=== PATIENT | male | born 1975 | race Caucasian/White ===

== ENCOUNTER 2022-05-19 19:30 | Outpatient (CLI) | payer OTHER, SELFPAY | END 2022-05-19 19:31 | disposition home or self-care (01) | LOC: AMB 05-31 12:51 | PROVIDERS: Visit Provider Family Medicine | DX: F10.129 Alcohol abuse with intoxication, unspecified (principal) | CPT/HCPCS: A0425; A0429 ==

== ENCOUNTER 2022-05-19 20:05 | Emergency (ER) | payer OTHER, SELFPAY ==
[2022-05-19 20:05] VITALS: BP 147/85
[2022-05-19 20:08] VITALS: BP 147/85; PULSE 106; RESP 18; TEMP 36.9; O2SAT 91; BMI 33.0
[2022-05-19 20:30] VITALS: BP 133/79; PULSE 105; O2SAT 91
--- NOTE | 2022-05-19 20:38 | ED_ITS ---
HPI - Alcohol General Chief Complaint: Alcohol/Intoxication Stated Complaint: ETOH Time Seen by Provider: 05/19/22 20:38 Source: patient and RN notes reviewed Mode of arrival: EMS Limitations: altered mental status History of Present Illness HPI narrative: 47-year-old man presenting to the emergency department via EMS who were sent for a welfare check. He presumes they were called by his boss when he says he did not show up for work. Boss is aware that he is an alcoholic. When asked him why he is here he said that he has ?blown it and ?1 year of sobriety. Apparently this year was on April 30 of this year. He says he began drinking 2 days ago. Was not able to clarify exactly why other than he just really wanted to drink. Says it was all ?bullshit?. He says he slipped up here because he was not working the program it is a simple is that he says.? no other answer?. ?Because I am an alcoholic?. He says he is would go to Psychiatry and say ?all do the best I can?. Same applies to his job. Says when he fights he loves life. He has no desire to . He loves art. Clearly loves music prior discussion. This is a lungs is family and friends bottom line is that it is a joke and he does not know why exactly he drank. Does have trouble straightening a coherent thought. Says he keeps getting told is going to make it within some days he feels like is going to ?fuckin' ?. 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 Does not think that the 2 days though that he was drinking again recently up to today would result in much in the way of physical withdrawal symptoms. He does live alone where he was found in his apartment. Works in [employer] at [employer]. 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 Does acknowledge a history of cirrhosis and diabetes. He is not a type 1 diabetic. There was some question of being unwell prior to this or a fever which he does not acknowledge here today. He was afebrile on presentation to the emergency department. Does not describe cough or cold symptoms. There has been no fall or trauma. Is not having any physical pain. He thinks he stopped drinking 24 hours ago however that is not consistent with timeline or the 0.2 alcohol level as tested by EMS. Related Data Home Medications Medication Instructions Recorded Confirmed Unobtainable 05/19/22 05/19/22 Allergies Allergy/AdvReac Type Severity Reaction Status Date / Time No Known Drug Allergies Allergy Verified 05/19/22 20:15 Review of Systems Status of ROS Reports: 10 or more systems reviewed and unremarkable except as noted in History and below [facility] Social History Smoking Status: Former smoker How often do you have a drink containing alcohol: never AUDIT-C Alcohol total score: 0 Non-prescribed substance use: denies use Exam Const: Vital Signs, click to edit/add: Vital Signs - 24 hr 05/19/22 20:08 Temperature 98.4 F Pulse Rate [Left P ulse Oximeter] 106 H Respiratory Rate 18 Blood Pressure [Ri ght Upper Arm] 147/85 H Pulse Oximetry 91 Oxygen Delivery Me thod Room Air General: pleasant, nad, obese breathing easily. CN 2 - 12 intact. Mentation is a little slowed.. Speaking fluidly. Quite pleasantly conversant Skin: warm and dry and well-perfused peripherally. No evidence of new trauma. Normal turgor. Scarring on the inside of the right ankle. 9 in nails tattoo inside lower right leg HEENT: head looks atraumatic. No fluid in the ear canals. No Singer sign. Eyes are non-icteric, PERRLA. EOMi nystagmus is present Oropharynx is moist, not entirely clean dentition at this time Neck and Back: Neck is supple, nontender Cardiac: Tachycardic regular rhythm Lungs/Chest: Breathing easily with equal expansion/excursion, appears to be clear. No pain to palpation. Abdomen/Pelvis: Soft and non-tender with normoactive bowel sounds. Overweight Musculoskeletal/Extremities: Moving all extremities without difficulty. Without pain to palpation. Lower extremity dependent edema not inconsistent with body habitus Documenting provider has reviewed patient's vital signs: yes Course Course Hospital Course: He appears generally well. I am hoping to discharge him to sponsor or friend who can help him clean up his apartment and get back toward sobriety. Does not appear that any intervention otherwise as needed. I did offer formal assisted detox but he does not feel that that will be necessary. Vital Signs Vital signs: Initial Vital Signs Blood Pressure 147/85 H 05/19/22 20:05 Blood Pressure Mean 105 05/19/22 20:05 Blood Pressure Position Supine 05/19/22 20:05 Vital Signs Blood Pressure 147/85 H 05/19/22 20:05 Temperature 98.4 F 05/19/22 20:08 Pulse Rate 112 H 05/19/22 22:00 Respiratory Rate 18 05/19/22 20:08 Blood Pressure 128/60 05/19/22 22:00 Pulse Oximetry 91 05/19/22 22:00 Oxygen Delivery Method 05/19/22 22:00 MDM - Alcohol MDM Narrative Medical decision making narrative: Other than drinking excessively none now certainly alert without suicidal ideation, and can be discharged to care of responsible adult and admonished, encouraged to get back on the wagon. Discharge Plan Discharge Clinical Impression: Alcoholic intoxication Patient Disposition: Home w/ Parent or Adult Condition: Improved Additional Instructions: Enjoy your music music, sober. :) Get back on it. Attend your meetings. You can do it as you have before. Nice to meet you. Prescriptions: No Action Unobtainable Stand Alone Forms: [employer] Info Instructions
[2022-05-19 21:00] VITALS: BP 138/80; PULSE 104; O2SAT 93
--- NOTE | 2022-05-19 21:30 | ED.NURSE ---
Pt gave permission to contact his friend, Swapnil. Pt does not have his phone with him. Pt gave permission to contact PD to retrieve phone/info. Contacted [place] [employer], officer provided phone number for pt's friend Swapnil. Contacted Swapnil Kraft arranged for another friend of pt to come pick the pt up.
[2022-05-19 22:00] VITALS: BP 128/60; PULSE 112; O2SAT 91
--- NOTE | 2022-05-19 22:08 | ED.NURSE ---
Pt leaves ER ambulatory, discharged to friend Scot.
== END 2022-05-19 22:19 | disposition home or self-care (01) ==
LOC: ED 22:13
PROVIDERS: Emergency Provider Family Medicine
DX: F10.220 Alcohol dependence with intoxication, uncomplicated (principal)
CPT/HCPCS: 99282; 99283

== ENCOUNTER 2022-06-22 14:32 | Emergency (ER) | payer OTHER, SELFPAY ==
[2022-06-22 14:51] VITALS: BP 151/80; PULSE 108; RESP 20; TEMP 37.4; O2SAT 96; BMI 41.6
--- NOTE | 2022-06-22 16:49 | ED.GENADULT ---
HPI - General Adult General Date Seen: 06/22/22 Chief complaint: Diabetic Related Problem Stated complaint: Diabetic Related Problem Time Seen by Provider: 06/22/22 16:16 Source: patient History of Present Illness HPI narrative: Patient is a 47-year-old male with underlying type 2 diabetes. He says that of late he has really tried to take his diabetes seriously, he is on a 15 g of carb a day diet and has been really trying to watch his blood sugars. 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 He says over the weekend he just felt kind of like he was in a brain fog, he was not sleeping well, any started to worry that something might be wrong. He has been checking his blood sugars every 2 hours and noted in the past day or so that they had been running around 200. He became pretty concerned about this and decided he should come in and get checked out. He has not had any focal symptoms, denies any fevers, cough, sore throat, headaches, vomiting, or any other concerns. Does have an appointment with an sport psychologist at the end of June. He does tell me he is a recovering alcoholic, he has cirrhosis which he says is MELD; he acknowledges that he tends to be a little bit obsessive about things. He does have a history of depression and anxiety, but says that he does not tend to have manic thoughts. This weekend though he felt like his thoughts were kind of racing, which is part of why it was hard to sleep. Related Data Home Medications Medication Instructions Recorded Confirmed blood sugar diagnostic (OneTouch 06/22/22 06/22/22 Ultra Test strips) bupropion HCl 300 mg 24 hr tablet, mg PO 06/22/22 extended release cholecalciferol (vitamin D3) 1,250 06/22/22 mcg (50,000 unit) capsule escitalopram oxalate 20 mg tablet mg 06/22/22 glimepiride 2 mg tablet mg 06/22/22 omeprazole 40 mg capsule,delayed mg 06/22/22 release pantoprazole 40 mg tablet,delayed mg PO 06/22/22 release quetiapine 25 mg tablet mg 06/22/22 spironolactone 25 mg tablet mg 06/22/22 vitamin A 10,000 unit capsule 06/22/22 Allergies Allergy/AdvReac Type Severity Reaction Status Date / Time No Known Drug Allergies Allergy Verified 05/19/22 20:15 Review of Systems Status of ROS: Reports: 10 or more systems reviewed and unremarkable except as noted in History and below [facility] Social History Smoking Status: Former smoker How often do you have a drink containing alcohol: never AUDIT-C Alcohol total score: 0 Non-prescribed substance use: denies use Exam Narrative: Exam Narrative: Vital signs as noted above. In general, an alert, well-appearing patient. Head: Normocephalic, atraumatic. Eyes: Pupils are equal reactive. Extraocular movements are full. Conjunctivae are normal. ENT: Mucous membranes are moist. Throat is normal. Neck: Supple without lymphadenopathy. Heart: Regular rate and rhythm. No murmur or rub. Lungs: Clear bilaterally. No increased work of breathing, crackles or wheezes. Abdomen: Soft and nontender. No organomegaly. Extremities: Well perfused. No edema. No calf tenderness. Pulses intact. Neurologic: Patient is alert and oriented to person and place. Speech is fluent. Face is symmetric. Moves all extremities equally. Affect: Normal. Skin: Warm and dry. Well perfused. Const: Vital Signs, click to edit/add: Vital Signs - 24 hr 06/22/22 14:51 Temperature 99.4 F Pulse Rate [Right Pulse Oximeter] 108 H Respiratory Rate 20 Blood Pressure [Ri ght Upper Arm] 151/80 H Pulse Oximetry 96 Oxygen Delivery Me thod Room Air Course Course Hospital Course: I offered to do some basic workup here, labs, chest x-ray, COVID test, but also discussed with him that I think given that he is not having any focal symptoms these are likely to be normal. His blood sugar here is 94. We talked about the fact that checking his blood sugars every 2 hours is excessive, and I think his lack of sleep and stress probably contributed to significant adrenaline this weekend which likely drove his blood sugars higher. Ultimately, he decided that he felt comfortable not doing any kind of workup. If he has any new symptoms that develop, he can certainly come back at any time. Otherwise, I have stressed to him that checking his blood sugar once or twice a day is plenty. Would like him to work on stress and sleep hygiene. Follow up with Endocrine at the end of the month as planned. Vital Signs Vital signs: Initial Vital Signs Temperature 99.4 F 06/22/22 14:51 Temperature Source Temporal Artery Scan 06/22/22 14:51 Pulse Rate 108 H 06/22/22 14:51 Respiratory Rate 20 06/22/22 14:51 Blood Pressure 151/80 H 06/22/22 14:51 Blood Pressure Mean 103 06/22/22 14:51 Blood Pressure Position Sitting 06/22/22 14:51 Pulse Oximetry 96 06/22/22 14:51 Oxygen Delivery Method 06/22/22 14:51 Vital Signs Temperature 99.4 F 06/22/22 14:51 Pulse Rate 108 H 06/22/22 14:51 Respiratory Rate 20 06/22/22 14:51 Blood Pressure 151/80 H 06/22/22 14:51 Pulse Oximetry 96 06/22/22 14:51 Oxygen Delivery Method 06/22/22 14:51 Temperature 99.4 F 06/22/22 14:51 Pulse Rate 108 H 06/22/22 14:51 Respiratory Rate 20 06/22/22 14:51 Blood Pressure 151/80 H 06/22/22 14:51 Pulse Oximetry 96 06/22/22 14:51 Oxygen Delivery Method 06/22/22 14:51 Discharge Plan Discharge Clinical Impression: High blood sugar Patient Disposition: Home, Self-Care Condition: Stable Instructions: Diabetic Hyperglycemia (ED) Additional Instructions: Check your blood sugar once or twice a day, not more often that. Continue with your dietary changes as you have been, follow-up with Endocrine later this month as planned. Work on sleep and stress as much as possible. Return to the ER at any time if you feel that you are developing new, concerning symptoms. Prescriptions: No Action quetiapine 25 mg tablet Label Comments: TAKE 1 TABLET BY MOUTH TWICE A DAY (DME) OneTouch Ultra Test Strip MISCELLANEOUS Label Comments: USE DIRECTED BY DOCTOR omeprazole 40 mg capsule,delayed release(DR/EC) Label Comments: TAKE 1 CAPSULE BY MOUTH DAILY spironolactone 25 mg tablet Label Comments: TAKE 1 TABLET BY MOUTH EVERY DAY glimepiride 2 mg tablet Label Comments: TAKE 1 TABLET BY MOUTH ONCE DAILY WITH A MEAL. vitamin A 10,000 unit capsule Label Comments: TAKE 1 CAPSULE BY MOUTH EVERY DAY pantoprazole 40 mg tablet,delayed release (DR/EC) PO Label Comments: TAKE 1 TABLET BY MOUTH EVERY DAY escitalopram oxalate 20 mg tablet Label Comments: TAKE 1 TABLET BY MOUTH EVERY DAY bupropion HCl 300 mg tablet extended release 24 hr PO Label Comments: TAKE 1 TABLET BY MOUTH EVERY DAY cholecalciferol (vitamin D3) 1,250 mcg (50,000 unit) capsule Label Comments: TAKE 1 CAPSULE BY MOUTH ONE DAY A WEEK Follow Up/Referrals: Provider,Not a Local [Primary Care Provider] - Stand Alone Forms: [facility] Info Instructions
== END 2022-06-22 17:05 | disposition home or self-care (01) ==
LOC: ED 16:50
PROVIDERS: Emergency Provider Emergency Medicine
DX: E11.65 Type 2 diabetes mellitus with hyperglycemia (principal)
CPT/HCPCS: 82962; 99283

== ENCOUNTER 2022-08-19 17:39 | Emergency (ER) | payer OTHER, SELFPAY ==
[2022-08-19] VITALS (17 sets, daily range): BP systolic 103–146; BP diastolic 62–81; PULSE 100–120; TEMP 37.1; O2SAT 91–97; BMI 43.0
--- NOTE | 2022-08-19 18:06 | ED.GENADULT ---
HPI - General Adult General Time Seen by Provider: 18:07 Date Seen: 08/19/22 Chief complaint: Edema Stated complaint: Fatigue,Edema,Shortness of Breath Time Seen by Provider: 08/19/22 17:42 Source: patient, RN notes reviewed and old records reviewed Mode of arrival: ambulatory Limitations: no limitations History of Present Illness HPI narrative: Patient is a 47-year-old male with underlying diabetes, cirrhosis due to alcohol, alcoholism in remission coming in with significant increased edema of his lower extremities over the last few days. He is feeling fatigued, short of breath. He states he feels confused, states he is having hard time making sense of what he is trying to say. He has felt his heart has been going faster at times but no chest pain. Denies any abdominal pain. No nausea vomiting or diarrhea, no urinary changes. He denies any current alcohol use. In review of the chart he was in in May with a alcoholic binge episode. That reportedly is his last use. He has been diligently trying to work on his diabetes, falling very stringent lifestyle/dietary recommendations. He notes over the last month maybe he has had some occasional fevers up to 101. There is no specific pain at this time. It is the edema and fatigue, associated shortness of breath that brought him in tonight. He is checking his sugars about twice a day and does not believe that they were out of control. Related Data Home Medications Medication Instructions Recorded Confirmed blood sugar diagnostic (OneTouch 06/22/22 06/22/22 Ultra Test strips) bupropion HCl 300 mg 24 hr tablet, mg PO 06/22/22 extended release cholecalciferol (vitamin D3) 1,250 06/22/22 mcg (50,000 unit) capsule escitalopram oxalate 20 mg tablet mg 06/22/22 glimepiride 2 mg tablet mg 06/22/22 omeprazole 40 mg capsule,delayed mg 06/22/22 release pantoprazole 40 mg tablet,delayed mg PO 06/22/22 release quetiapine 25 mg tablet mg 06/22/22 spironolactone 25 mg tablet mg 06/22/22 vitamin A 10,000 unit capsule 06/22/22 Previous Rx's Medication Instructions Recorded furosemide 20 mg tablet 20 mg PO DAILY #3 tabs 08/19/22 Allergies Allergy/AdvReac Type Severity Reaction Status Date / Time No Known Drug Allergies Allergy Verified 05/19/22 20:15 Review of Systems Status of ROS: Reports: 10 or more systems reviewed and unremarkable except as noted in History and below PFSH [facility] Social History Smoking Status: Former smoker How often do you have a drink containing alcohol: never AUDIT-C Alcohol total score: 0 Non-prescribed substance use: denies use service: No Exam Const: Vital Signs, click to edit/add: Vital Signs - 24 hr 08/19/22 18:03 08/19/22 18:16 08/19/22 18:08 Temperature 98.8 F Pulse Rate 115 H Pulse Rate [Right Pulse Oximeter] 120 H Blood Pressure Blood Pressure [Ri ght Upper Arm] 103/81 Pulse Oximetry 96 95 96 Oxygen Delivery Me thod Room Air 08/19/22 18:30 08/19/22 18:32 08/19/22 18:33 Temperature Pulse Rate 109 H 109 H 108 H Pulse Rate [Right Pulse Oximeter] Blood Pressure 126/67 Blood Pressure [Ri ght Upper Arm] Pulse Oximetry 94 93 93 Oxygen Delivery Me thod 08/19/22 19:00 08/19/22 19:02 08/19/22 19:03 Temperature Pulse Rate 105 H 106 H 105 H Pulse Rate [Right Pulse Oximeter] Blood Pressure 128/62 Blood Pressure [Ri ght Upper Arm] Pulse Oximetry 91 92 92 Oxygen Delivery Me thod 08/19/22 19:30 08/19/22 19:32 08/19/22 19:33 Temperature Pulse Rate 101 H 101 H 108 H Pulse Rate [Right Pulse Oximeter] Blood Pressure 130/67 Blood Pressure [Ri ght Upper Arm] Pulse Oximetry 93 92 94 Oxygen Delivery Me thod 08/19/22 20:00 08/19/22 20:01 08/19/22 20:30 Temperature Pulse Rate 101 H 100 106 H Pulse Rate [Right Pulse Oximeter] Blood Pressure 107/64 Blood Pressure [Ri ght Upper Arm] Pulse Oximetry 92 93 96 Oxygen Delivery Me thod 08/19/22 20:32 Temperature Pulse Rate 109 H Pulse Rate [Right Pulse Oximeter] Blood Pressure 146/70 H Blood Pressure [Ri ght Upper Arm] Pulse Oximetry 97 Oxygen Delivery Me thod Documenting provider has reviewed patient's vital signs: yes Common normals: no apparent distress, oriented x3, no limitations, alert and well nourished General appearance: cooperative and comfortable Nutritional appearance: obese HENMT: Common normals: normocephalic (Wears a right eye patch), head/scalp atraumatic, hearing grossly normal bilaterally, external ears normal, external nose normal, nasal mucous membranes and turbinates normal, moist oral mucous membranes, oropharynx normal, dentition normal and gingiva normal Head and scalp: normocephalic (Wears a right eye patch) and atraumatic Nose: external nose normal and nasal mucous membranes and turbinates normal External ear: external ears normal Eye: Other: Right IA is with an eye patch. Pupil is round and reactive on the left I do think there might be some scleral icterus that I am seen. Neck & C-Spine: Common normals: full ROM, no lymphadenopathy, supple, no meningeal signs, no JVD and thyroid normal Thyroid: thyroid normal Chest: Common normals: inspection of chest normal and palpation of chest normal Resp: Common normals: normal respiratory effort, no retractions and no use of accessory muscles Other: Diminished lung sounds right base, some dry fibrotic crackles heard, no wheezing, no prolonged expiratory phase. Cardio: Common normals: no JVD, regular rhythm, S1 normal heart sound, S2 normal heart sound, no gallops, no clicks and no murmurs Rate: tachycardic Rhythm: regular rhythm Heart sounds: S1 normal and S2 normal GI: Common normals: Normal to inspection, nondistended, normoactive bowel sounds present, soft to palpation, non-tender, no hepatosplenomegaly and no masses Palpation: soft and no hepatosplenomegaly Extremity: Other: He has significantly thickened lower extremities with some overlying pitting edema. He has significant erythema and petechial/bruising changes of his lower ext remedies likely due to capillary breakdown from edema. I do not have a sense that the legs are infected with cellulitis. Neuro: Common normals: oriented x3, CN's II-XII intact bilaterally, moves all extremities, no focal motor deficits and no sensory deficits noted Sensorium/orientation: alert Meningeal signs: no meningeal signs Speech: speech normal Course Course Hospital Course: Patient is reporting tachycardia, shortness of breath, fatigue and edema. He reports he has not been drinking except for that 1 incident in May. I still do think that decompensation of his cirrhosis is a possibility, complications of diabetes with cardiac issues is certainly a possibility. This does not sound like it is infectious in nature but need to keep that in mind. Will start with a full complement of labs, EKG, portable chest x-ray. Reevaluation(s) Reevaluation #1: Patient was sleeping comfortably when I went in to talk to him. Reviewed that his liver labs are giving him a meld score of 21. He states that is mid range for him in higher than what he has most recently been. His ammonia is currently normal. He reflects that when he saw Dr. Miller recently, they had talked about maybe initiating Lasix for lower extremity edema. He states his legs were not as bad as they are now, that is really taken off over the last few days. I recommend re-initiate 20 mg of Lasix daily for 3 days and follow up in clinic on Tuesday. He states he is worried about going home. I have reviewed with him that I do not believe he meets criteria for hospitalization but certainly will ask the hospitalist who is much more informed than I am on this. Did speak with our hospitalist and he concurred that there was no reason for hospitalization for this patient at this time. Did review that with the patient. Patient expresses difficulty getting stockings on his legs. Reviewed that Otis wraps really are not the best for compression, should talk to his primary care provider about the wraps for edema. Time: 20:31 Vital Signs Vital signs: Initial Vital Signs Temperature 98.8 F 08/19/22 18:03 Temperature Source Temporal Artery Scan 08/19/22 18:03 Pulse Rate 120 H 08/19/22 18:03 Blood Pressure 103/81 08/19/22 18:03 Blood Pressure Mean 88 08/19/22 18:03 Blood Pressure Position Sitting 08/19/22 18:03 Pulse Oximetry 96 08/19/22 18:03 Oxygen Delivery Method 08/19/22 18:03 Vital Signs Temperature 98.8 F 08/19/22 18:03 Pulse Rate 120 H 08/19/22 18:03 Blood Pressure 103/81 08/19/22 18:03 Pulse Oximetry 96 08/19/22 18:03 Oxygen Delivery Method 08/19/22 18:03 Temperature 98.8 F 08/19/22 18:03 Pulse Rate 109 H 08/19/22 20:32 Blood Pressure 146/70 H 08/19/22 20:32 Pulse Oximetry 97 08/19/22 20:32 Oxygen Delivery Method 08/19/22 18:03 Medical Decision Making Lab Data Lab results reviewed: Yes I reviewed the patient's lab results Labs: Lab Results 08/19/22 08/19/22 08/19/22 Range/Units 18:08 18:17 18:17 WBC (4.50-11.00) K/uL RBC (4.30-5.90) m/uL Hgb (13.5-17.5) gm/dL Hct (37.0-53.0) % MCV (80-100) fL MCH (26-34) pg MCHC (32-36) gm/dL RDW Coeff of Caridad (11.5-15.5) % Plt Count (140-440) K/uL Neut % (Auto) (42.0-72.0) % Lymph % (Auto) (20-44) % [place] % (Auto) (0.0-11.0) % Eos % (Auto) (0.0-7.0) % Baso % (Auto) (0.0-3.0) % Neut # (Auto) (1.7-7.0) K/uL Lymph # (Auto) (0.90-2.90) K/uL [place] # (Auto) (0.00-0.90) K/UL Eos # (Auto) (0.00-0.50) K/uL Baso # (Auto) (0.00-0.30) K/uL Abs Immat Gran (auto) (0.00-0.30) K/uL Imm/Tot Granulo (auto) % INR (0.91-1.10) APTT (23-33) Seconds VBG pH 7.464 H (7.32-7.43) VBG pCO2 39 L (40-50) mmHG VBG pO2 49.7 H (25-47) mmHG VBG HCO3 28 (21-28) mmol/L Sodium (135-149) mmol/L Potassium (3.6-5.1) mmol/L Chloride (96-114) mmol/L Carbon Dioxide (20-32) mmol/L BUN (5-24) mg/dL Creatinine (0.5-1.5) mg/dL Estimated Creat Clear Estimated GFR ml/min Glucose (60-115) mg/dL Calcium (8.4-10.6) mg/dL Magnesium (1.5-2.6) mg/dL Total Bilirubin (0.1-1.5) mg/dL AST (12-35) U/L ALT (4-50) U/L Alkaline Phosphatase (40-150) U/L Ammonia (13.1-30.0) umol/L C-Reactive Protein NT-Pro-B Natriuret Pep (0-125) PG/mL Total Protein (6.0-8.3) g/dL Albumin (3.3-5.0) g/dL TSH (0.270-4.200) uIU/mL Ethyl Alcohol (0.01-0.03) % SARS-CoV-2 (PCR) Negative SARS-CoV-2 (Negative) Influenza Type A (PCR) Negative PCR FLU A (Negative) Influenza Type B (PCR) Negative PCR FLU B (Negative) RSV (PCR) Negative PCR RSV (Negative) POC Troponin I 0.00 L (0.01-0.04) ng/ml 08/19/22 08/19/22 08/19/22 Range/Units 18:27 18:27 18:27 WBC 4.05 L (4.50-11.00) K/uL RBC 3.97 L (4.30-5.90) m/uL Hgb 11.1 L (13.5-17.5) gm/dL Hct 34.3 L (37.0-53.0) % MCV 86 (80-100) fL MCH 28 (26-34) pg MCHC 32 (32-36) gm/dL RDW Coeff of Caridad 16.1 H (11.5-15.5) % Plt Count 101 L (140-440) K/uL Neut % (Auto) 73.2 H (42.0-72.0) % Lymph % (Auto) 15.3 L (20-44) % [place] % (Auto) 9.9 (0.0-11.0) % Eos % (Auto) 0.7 (0.0-7.0) % Baso % (Auto) 0.7 (0.0-3.0) % Neut # (Auto) 3.00 (1.7-7.0) K/uL Lymph # (Auto) 0.60 L (0.90-2.90) K/uL [place] # (Auto) 0.40 (0.00-0.90) K/UL Eos # (Auto) 0.00 (0.00-0.50) K/uL Baso # (Auto) 0.00 (0.00-0.30) K/uL Abs Immat Gran (auto) 0.00 (0.00-0.30) K/uL Imm/Tot Granulo (auto) 0.2 % INR 1.48 H (0.91-1.10) APTT 36 H (23-33) Seconds VBG pH (7.32-7.43) VBG pCO2 (40-50) mmHG VBG pO2 (25-47) mmHG VBG HCO3 (21-28) mmol/L Sodium (135-149) mmol/L Potassium (3.6-5.1) mmol/L Chloride (96-114) mmol/L Carbon Dioxide (20-32) mmol/L BUN (5-24) mg/dL Creatinine (0.5-1.5) mg/dL Estimated Creat Clear Estimated GFR ml/min Glucose (60-115) mg/dL Calcium (8.4-10.6) mg/dL Magnesium (1.5-2.6) mg/dL Total Bilirubin (0.1-1.5) mg/dL AST (12-35) U/L ALT (4-50) U/L Alkaline Phosphatase (40-150) U/L Ammonia (13.1-30.0) umol/L C-Reactive Protein Cancelled NT-Pro-B Natriuret Pep (0-125) PG/mL Total Protein (6.0-8.3) g/dL Albumin (3.3-5.0) g/dL TSH (0.270-4.200) uIU/mL Ethyl Alcohol (0.01-0.03) % SARS-CoV-2 (PCR) (Negative) Influenza Type A (PCR) (Negative) Influenza Type B (PCR) (Negative) RSV (PCR) (Negative) POC Troponin I (0.01-0.04) ng/ml 08/19/22 08/19/22 08/19/22 Range/Units 18:27 18:27 18:27 WBC (4.50-11.00) K/uL RBC (4.30-5.90) m/uL Hgb (13.5-17.5) gm/dL Hct (37.0-53.0) % MCV (80-100) fL MCH (26-34) pg MCHC (32-36) gm/dL RDW Coeff of Caridad (11.5-15.5) % Plt Count (140-440) K/uL Neut % (Auto) (42.0-72.0) % Lymph % (Auto) (20-44) % [place] % (Auto) (0.0-11.0) % Eos % (Auto) (0.0-7.0) % Baso % (Auto) (0.0-3.0) % Neut # (Auto) (1.7-7.0) K/uL Lymph # (Auto) (0.90-2.90) K/uL [place] # (Auto) (0.00-0.90) K/UL Eos # (Auto) (0.00-0.50) K/uL Baso # (Auto) (0.00-0.30) K/uL Abs Immat Gran (auto) (0.00-0.30) K/uL Imm/Tot Granulo (auto) % INR (0.91-1.10) APTT (23-33) Seconds VBG pH (7.32-7.43) VBG pCO2 (40-50) mmHG VBG pO2 (25-47) mmHG VBG HCO3 (21-28) mmol/L Sodium 131 L (135-149) mmol/L Potassium 3.8 (3.6-5.1) mmol/L Chloride 98 (96-114) mmol/L Carbon Dioxide 25 (20-32) mmol/L BUN 8 (5-24) mg/dL Creatinine 0.6 (0.5-1.5) mg/dL Estimated Creat Clear 153.77 Estimated GFR 118 ml/min Glucose 148 H (60-115) mg/dL Calcium 8.2 L (8.4-10.6) mg/dL Magnesium 1.6 (1.5-2.6) mg/dL Total Bilirubin 3.8 H (0.1-1.5) mg/dL AST 36 H (12-35) U/L ALT 21 (4-50) U/L Alkaline Phosphatase 183 H (40-150) U/L Ammonia 20.0 (13.1-30.0) umol/L C-Reactive Protein 0.9 NT-Pro-B Natriuret Pep 112 (0-125) PG/mL Total Protein 6.3 (6.0-8.3) g/dL Albumin 3.4 (3.3-5.0) g/dL TSH 1.760 (0.270-4.200) uIU/mL Ethyl Alcohol < 0.01 L (0.01-0.03) % SARS-CoV-2 (PCR) (Negative) Influenza Type A (PCR) (Negative) Influenza Type B (PCR) (Negative) RSV (PCR) (Negative) POC Troponin I (0.01-0.04) ng/ml Imaging Data Chest x-ray: Attestation: I have reviewed the pertinent imaging results. My impression: A my preliminary review, see no acute cardiopulmonary change. Radiologist's impression: Patient: ROBERT OHARA Facility:?[facility] Patient ID:?[id number] Site Patient ID:?[id number]. Site :?[id number] Study:?XRay Chest -08/19/2022 6:44:24 PM Ordering Physician:Venkata Gaming Final Report: INDICATION: Dyspnea and fatigue COMPARISON: None TECHNIQUE: Single-view study FINDINGS: TUBES AND LINES: None. HEART AND MEDIASTINUM: The heart size is normal. The mediastinal contour appears normal for patient age. LUNGS AND PLEURAL SPACES: The lungs appear normal.The pleural spaces are unremarkable. OSSEOUS STRUCTURES: Age-appropriate appearance. No acute focal finding. IMPRESSION: No evidence of active pulmonary disease. Dictated by Josue Gómez MD @ 08/19/2022 7:07:35 PM (Electronic Signature) ECG Data Attestation: I personally reviewed and interpreted this ECG as follows: (Sinus tachycardia, 109 beats per minute, QT corrected 484 milliseconds. No ischemic change.) Prior ECG tracings: not available for review Critical Care Time Critical Care Time Critical Care Time: No Discharge Plan Discharge Clinical Impression: Bilateral edema of lower extremity Patient Disposition: Home, Self-Care Condition: Stable Instructions: Cirrhosis (ED), Leg Edema (ED) Additional Instructions: Need to follow up in clinic Tuesday next week, call tomorrow to get scheduled. Need to call [place] [facility] specialist and get back in with them if need be, we will send your current labs with you. Need to elevate legs to heart level, take Lasix daily for next 3 days and be re-evaluated on Tuesday in clinic. Also need to have the clinic get you scheduled to get appropriate compression for your legs. Activity Level: Activity as Tolerated Prescriptions: New furosemide 20 mg tablet 20 mg PO DAILY Qty: 3 0RF No Action quetiapine 25 mg tablet Label Comments: TAKE 1 TABLET BY MOUTH TWICE A DAY (DME) OneTouch Ultra Test Strip MISCELLANEOUS Label Comments: USE DIRECTED BY DOCTOR omeprazole 40 mg capsule,delayed release(DR/EC) Label Comments: TAKE 1 CAPSULE BY MOUTH DAILY spironolactone 25 mg tablet Label Comments: TAKE 1 TABLET BY MOUTH EVERY DAY glimepiride 2 mg tablet Label Comments: TAKE 1 TABLET BY MOUTH ONCE DAILY WITH A MEAL. vitamin A 10,000 unit capsule Label Comments: TAKE 1 CAPSULE BY MOUTH EVERY DAY pantoprazole 40 mg tablet,delayed release (DR/EC) PO Label Comments: TAKE 1 TABLET BY MOUTH EVERY DAY escitalopram oxalate 20 mg tablet Label Comments: TAKE 1 TABLET BY MOUTH EVERY DAY bupropion HCl 300 mg tablet extended release 24 hr PO Label Comments: TAKE 1 TABLET BY MOUTH EVERY DAY cholecalciferol (vitamin D3) 1,250 mcg (50,000 unit) capsule Label Comments: TAKE 1 CAPSULE BY MOUTH ONE DAY A WEEK Follow Up/Referrals: Provider,Not a Local [Primary Care Provider] - Stand Alone Forms: [facility] Info Instructions
--- NOTE | 2022-08-19 18:16 | CRLHL7_ITS ---
For Patients: As a result of the Century Cures Act, medical imaging exams and procedure reports are released immediately into your electronic medical record. You may view this report before your referring provider. If you have questions, please contact your health care provider. INDICATION: Dyspnea and fatigue COMPARISON: None TECHNIQUE: Single-view study FINDINGS: TUBES AND LINES: None. HEART AND MEDIASTINUM: The heart size is normal. The mediastinal contour appears normal for patient age. LUNGS AND PLEURAL SPACES: The lungs appear normal.The pleural spaces are unremarkable. OSSEOUS STRUCTURES: Age-appropriate appearance. No acute focal finding. IMPRESSION: No evidence of active pulmonary disease. Dictated by Josue Gómez MD @ 08/19/2022 7:07:35 PM (Electronically Signed)
[2022-08-19 18:35] LABS: HCO3 VBG 28 mmol/L (21-28); PCO2 VBG 39 mmHG (40-50); PO2 VBG 49.7 mmHG (25-47); pH VBG 7.464 (7.32-7.43)
[2022-08-19 18:38] LABS: Basophils Percent Auto 0.7 % (0.0-3.0); Eosinophils Percent Auto 0.7 % (0.0-7.0); Hematocrit 34.3 % (37.0-53.0); Hemoglobin* 11.1 gm/dL (13.5-17.5); Immature Granulocytes Pct Auto 0.2 %; Lymphocytes Percent Auto 15.3 % (20-44); Mean Corpuscular HGB Conc 32 gm/dL (32-36); Mean Corpuscular Hemoglobin 28 pg (26-34); Mean Corpuscular Volume 86 fL (80-100); Monocytes Percent Auto 9.9 % (0.0-11.0); Neutrophils Percent Auto 73.2 % (42.0-72.0); Platelet Count* 101 K/uL (140-440); RDW Coefficient of Variation % 16.1 % (11.5-15.5); Red Blood Count 3.97 m/uL (4.30-5.90); Slide Review Reflex No; White Blood Count* 4.05 K/uL (4.50-11.00)
[2022-08-19 18:49] LABS: PCR FLU A Negative PCR FLU A (Negative); PCR FLU B Negative PCR FLU B (Negative); PCR RSV Negative PCR RSV (Negative)
[2022-08-19 18:52] LABS: Albumin* 3.4 g/dL (3.3-5.0); Chloride* 98 mmol/L (96-114); Sodium* 131 mmol/L (135-149)
[2022-08-19 18:53] LABS: Potassium* 3.8 mmol/L (3.6-5.1)
[2022-08-19 18:55] LABS: Bilirubin Total* 3.8 mg/dL (0.1-1.5); Creatinine* 0.6 mg/dL (0.5-1.5); Est. Creatinine Clearance* 153.77; Estimated Glomerular Filt Rate 118 ml/min; INR 1.48 (0.91-1.10); Partial Thromboplastin Time* 36 Seconds (23-33); Prothrombin Time 18.8 Seconds
[2022-08-19 18:56] LABS: Alanine Aminotransferase* 21 U/L (4-50); Alkaline Phosphatase* 183 U/L (40-150); Aspartate Amino Transferase* 36 U/L (12-35); Blood Urea Nitrogen* 8 mg/dL (5-24); Calcium* 8.2 mg/dL (8.4-10.6); Carbon Dioxide* 25 mmol/L (20-32); Glucose* 148 mg/dL (60-115); Magnesium* 1.6 mg/dL (1.5-2.6); Total Protein* 6.3 g/dL (6.0-8.3)
[2022-08-19 18:58] LABS: C Reactive Protein* 0.9 mg/dL (0.5-1.0); Ethanol* < 0.01 % (0.01-0.03)
[2022-08-19 19:05] LABS: NT Pro B Type NatriureticPept* 112 PG/mL (0-125)
[2022-08-19 19:11] LABS: SARS PCR* Negative SARS-CoV-2 (Negative)
== END 2022-08-19 21:20 | disposition home or self-care (01) ==
PROVIDERS: Emergency Provider Family Medicine
DX: R60.0 Localized edema (principal)
CPT/HCPCS: 36415; 71045; 80053; 82077; 82140; 82803; 83735; 83880; 84443; 85025; 85610; 85730; 86140; 87502; 87634; 87635; 93005; 94761; 99284

== ENCOUNTER 2022-08-27 08:52 | Outpatient (CLI) | payer OTHER, SELFPAY | END 2022-08-27 08:53 | disposition home or self-care (01) | LOC: AMB 09-22 12:24 | PROVIDERS: PCP Family Medicine; Visit Provider Family Medicine | DX: R55 Syncope and collapse (principal); R41.82 Altered mental status, unspecified | CPT/HCPCS: A0425; A0429 ==

== ENCOUNTER 2022-08-27 09:18 | Emergency (ER) | payer OTHER, SELFPAY ==
[2022-08-27] VITALS (37 sets, daily range): BP systolic 121–142; BP diastolic 66–76; PULSE 92–102; RESP 18; TEMP 36.8; O2SAT 92–98; BMI 40.2
--- NOTE | 2022-08-27 10:10 | ED.NURSE ---
Pt ambulatory to the restroom to provide UA. Walks without assistance, cooperative.
[2022-08-27 10:23] LABS: Amphetamine Screen Urine Negative (Negative); Barbiturate Screen Urine Negative (Negative); Benzodiazepines Screen Urine Negative (Negative); Cannabinoid Screen Urine Negative (Negative); Cocaine Screen Urine Negative (Negative); Methadone Screen Urine Negative (Negative); Methamphetamines Screen Urine Negative (Negative); Opiate Screen Urine Negative (Negative); Oxycodone Screen Urine Negative (Negative); Phencyclidine Screen Urine Negative (Negative)
--- NOTE | 2022-08-27 10:27 | ED_ITS ---
HPI - Psych General Chief Complaint: Psychiatric Problem/Disorder Stated Complaint: Altered mental status Time Seen by Provider: 08/27/22 09:25 History of Present Illness HPI Narrative: 47-year-old man brought by EMS to the emergency department after believe onto must of called for help. As far as I can determine she had arrived to pick Slava up to go run errands and must have seen him to be rather altered. He acknowledges huffing numerous cans of compressed air it. 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 I asked him how he feels any says a tired and overwhelmed and depressed. He has been feeling this way for the last couple decades. Does have an alcohol problem but he says he has been white knuckling it and staying away from alcohol. He will do anything though to help himself feel better. He has been attending meetings. Spoke to his sponsor last I believe about 4 days ago. Does have regular psychiatric care and I think it was last month there might have been some medication changes made. He has been struggling with feelings of depression over the last 20 years or so. He has never been hospitalized for psychiatric cares. He does have a cat at home name Vanessa. Lives otherwise alone. Regarding his work he feels that they would just as soon him quit. He is currently on liver transplant list with [facility] but indicates with self duration if there foolish enough to proceed with someone like me. Says that he is prone to relapses. I did see Mr. Patricio sometime back with alcohol intoxication. but he notes to be maintaining his sobriety in that regard at least. He has been working at lowering BMI. Looks like goal is to lose about 100 lb before moving forward with transplant. He has managed 20 so far by counting calories. He does admit that his sleep is terrible and that if he can get better sleep things might look better. He is pending I believe next week a sleep study. He wakes every 90 minutes or so at this point. He is currently not feeling lightheaded necessarily or anything other than tired. No chest pain or shortness of breath. I ask him whether or not this was an effort to harm himself and or just to feel better and he says both. He does think often that he would be better off and would welcome an interview for some more counseling and potential psychiatric placement. Later aunt arrives in the emergency department. Related Data Home Medications Medication Instructions Recorded Confirmed blood sugar diagnostic (OneTouch 06/22/22 06/22/22 Ultra Test strips) bupropion HCl 300 mg 24 hr tablet, 300 mg PO DAILY 06/22/22 08/27/22 extended release cholecalciferol (vitamin D3) 1,250 06/22/22 mcg (50,000 unit) capsule escitalopram oxalate 20 mg tablet 20 mg DAILY 06/22/22 glimepiride 2 mg tablet 2 mg PO DAILY 06/22/22 08/27/22 omeprazole 40 mg capsule,delayed 40 mg DAILY 06/22/22 release pantoprazole 40 mg tablet,delayed 40 mg PO DAILY 06/22/22 08/27/22 release quetiapine 25 mg tablet 50 mg PO DIRECTED 06/22/22 08/27/22 spironolactone 25 mg tablet 25 mg PO DAILY 06/22/22 08/27/22 vitamin A 10,000 unit capsule 10,000 unit PO DAILY 06/22/22 08/27/22 Previous Rx's Medication Instructions Recorded furosemide 20 mg tablet 20 mg PO DAILY #3 tabs 08/19/22 Allergies Allergy/AdvReac Type Severity Reaction Status Date / Time No Known Drug Allergies Allergy Verified 05/19/22 20:15 Review of Systems Status of ROS: Reports: 10 or more systems reviewed and unremarkable except as noted in History and below [facility] Social History Smoking Status: Former smoker How often do you have a drink containing alcohol: never AUDIT-C Alcohol total score: 0 Non-prescribed substance use: denies use service: No Exam Narrative: Exam Narrative: Pleasant. Blunted affect but can appreciate a joke smiling wryly. Does appear tired. Skin is warm and dry. There is some seborrheic dermatitis on his face. Oropharynx is moist. Is bearded. Cranial nerves 2-12 are intact. GCS 15. Pupils are 2-3 mm and symmetrical. Brisk. There is no nystagmus. Extraocular movements are intact as noted. Head is atraumatic. Neck is supple without LA. Lungs are clear. Cardiovascular is regular rate and rhythm. Abdomen is obese soft and nontender. Is moving all extremities without difficulty. Well perfused. There are some changes of chronic lower extremity edema and there is 1+ pitting edema bilateral lower extremities. The left with some pinkish tinge but not set cellulitic in the anterior tibial area. Abrasions and some dried blood on the anterior right lower chavez consistent with scratching. No induration or calor too suggest c ellulitis. 9 in nails tattoo in lower extremity Mood is depressed. Affect is appropriate. Speech isn't pressured or slurred. Is thoughtful, introspective. Const: Vital Signs, click to edit/add: Vital Signs - 24 hr 08/27/22 09:24 08/27/22 11:00 08/27/22 11:40 Temperature 98.3 F Pulse Rate Pulse Rate [Right Pulse Oximeter] 98 101 H 100 Respiratory Rate 18 Blood Pressure Blood Pressure [Le ft Upper Arm] 127/70 132/66 Pulse Oximetry 98 96 Oxygen Delivery Me thod Room Air Room Air 08/27/22 09:35 08/27/22 09:36 08/27/22 10:00 Temperature Pulse Rate 99 99 99 Pulse Rate [Right Pulse Oximeter] Respiratory Rate Blood Pressure 136/70 Blood Pressure [Le ft Upper Arm] Pulse Oximetry 98 98 96 Oxygen Delivery Me thod 08/27/22 10:02 08/27/22 10:03 08/27/22 10:30 Temperature Pulse Rate 98 99 100 Pulse Rate [Right Pulse Oximeter] Respiratory Rate Blood Pressure 132/68 Blood Pressure [Le ft Upper Arm] Pulse Oximetry 95 95 93 Oxygen Delivery Me thod 08/27/22 10:32 08/27/22 10:33 08/27/22 11:30 Temperature Pulse Rate 98 99 Pulse Rate [Right Pulse Oximeter] 101 H Respiratory Rate Blood Pressure 137/67 Blood Pressure [Le ft Upper Arm] 134/68 Pulse Oximetry 93 93 Oxygen Delivery Me thod 08/27/22 12:00 08/27/22 12:02 08/27/22 12:30 Temperature Pulse Rate 102 H 100 101 H Pulse Rate [Right Pulse Oximeter] Respiratory Rate Blood Pressure 134/70 Blood Pressure [Le ft Upper Arm] Pulse Oximetry 92 94 93 Oxygen Delivery Me thod 08/27/22 12:32 08/27/22 13:00 08/27/22 13:02 Temperature Pulse Rate 98 98 98 Pulse Rate [Right Pulse Oximeter] Respiratory Rate Blood Pressure 129/70 130/72 Blood Pressure [Le ft Upper Arm] Pulse Oximetry 94 93 92 Oxygen Delivery Me thod 08/27/22 13:03 08/27/22 13:30 08/27/22 13:31 Temperature Pulse Rate 96 100 98 Pulse Rate [Right Pulse Oximeter] Respiratory Rate Blood Pressure 142/71 H Blood Pressure [Le ft Upper Arm] Pulse Oximetry 94 93 93 Oxygen Delivery Me thod 08/27/22 13:32 08/27/22 14:00 08/27/22 14:02 Temperature Pulse Rate 99 98 93 Pulse Rate [Right Pulse Oximeter] Respiratory Rate Blood Pressure 125/73 Blood Pressure [Le ft Upper Arm] Pulse Oximetry 93 93 93 Oxygen Delivery Me thod 08/27/22 14:03 08/27/22 14:31 08/27/22 15:02 Temperature Pulse Rate 97 Pulse Rate [Right Pulse Oximeter] Respiratory Rate Blood Pressure 123/70 131/70 Blood Pressure [Le ft Upper Arm] Pulse Oximetry 92 Oxygen Delivery Me thod 08/27/22 15:32 08/27/22 15:52 08/27/22 16:00 Temperature Pulse Rate 94 95 Pulse Rate [Right Pulse Oximeter] Respiratory Rate Blood Pressure 133/76 Blood Pressure [Le ft Upper Arm] Pulse Oximetry 92 92 Oxygen Delivery Me thod 08/27/22 16:02 08/27/22 16:03 08/27/22 17:00 Temperature Pulse Rate 92 93 94 Pulse Rate [Right Pulse Oximeter] Respiratory Rate Blood Pressure 122/76 Blood Pressure [Le ft Upper Arm] Pulse Oximetry 93 94 93 Oxygen Delivery Me thod 08/27/22 17:02 08/27/22 17:03 08/27/22 18:02 Temperature Pulse Rate 92 92 Pulse Rate [Right Pulse Oximeter] Respiratory Rate Blood Pressure 127/73 121/76 Blood Pressure [Le ft Upper Arm] Pulse Oximetry 93 92 Oxygen Delivery Me thod 08/27/22 19:01 Temperature Pulse Rate Pulse Rate [Right Pulse Oximeter] Respiratory Rate Blood Pressure 123/67 Blood Pressure [Le ft Upper Arm] Pulse Oximetry Oxygen Delivery Me thod Documenting provider has reviewed patient's vital signs: yes Course Course Hospital Course: Spent nearly entirety of ER stay sleeping. No events. Consultations Consultation #1: Discussed case with poison Control. Concern of the sudden cardiac . To monitor on environmental monitoring technician for another 1 to 1-1/2 hours given time of ingestion. Consultation #2: Discussed this case with DEC junior bookkeeper Elvin for a more full picture of what might be occurring here. After interview Elvin calls back confirming that Mr. Patricio had intended to kill himself with this inhalation. Concerns also of rather apathetic affect. This was confirmed by Mr. Patricio as well to nursing. Recommendations are for psychiatric placement. Will begin searching. Vital Signs Vital signs: Initial Vital Signs Temperature 98.3 F 08/27/22 09:24 Temperature Source Temporal Artery Scan 08/27/22 09:24 Pulse Rate 98 08/27/22 09:24 Respiratory Rate 18 08/27/22 09:24 Blood Pressure 127/70 08/27/22 09:24 Blood Pressure Mean 89 08/27/22 09:24 Blood Pressure Position Supine 08/27/22 09:24 Pulse Oximetry 98 08/27/22 09:24 Oxygen Delivery Method 08/27/22 09:24 Vital Signs Temperature 98.3 F 08/27/22 09:24 Pulse Rate 98 08/27/22 09:24 Respiratory Rate 18 08/27/22 09:24 Blood Pressure 127/70 08/27/22 09:24 Pulse Oximetry 98 08/27/22 09:24 Oxygen Delivery Method 08/27/22 09:24 Temperature 98.3 F 08/27/22 09:24 Pulse Rate 92 08/27/22 17:03 Respiratory Rate 18 08/27/22 09:24 Blood Pressure 123/67 08/27/22 19:01 Pulse Oximetry 92 08/27/22 17:03 Oxygen Delivery Method 08/27/22 11:40 MDM - Psych MDM Narrative Medical decision making narrative: At this time I would consider Mr. Patricio medically cleared to go to psychiatric facility. Finally obtaining psychiatric placement at [facility]. Medical Records Attestation: I reviewed the patient's medical records. Lab Data Attestation: I reviewed the patient's lab results. Labs: Lab Results 08/27/22 08/27/22 08/27/22 Range/Units 09:35 10:08 10:10 WBC (4.50-11.00) K/uL RBC (4.30-5.90) m/uL Hgb (13.5-17.5) gm/dL Hct (37.0-53.0) % MCV (80-100) fL MCH (26-34) pg MCHC (32-36) gm/dL RDW Coeff of Caridad (11.5-15.5) % Plt Count (140-440) K/uL Neut % (Auto) (42.0-72.0) % Lymph % (Auto) (20-44) % Kinney % (Auto) (0.0-11.0) % Eos % (Auto) (0.0-7.0) % Baso % (Auto) (0.0-3.0) % Neut # (Auto) (1.7-7.0) K/uL Lymph # (Auto) (0.90-2.90) K/uL Kinney # (Auto) (0.00-0.90) K/UL Eos # (Auto) (0.00-0.50) K/uL Baso # (Auto) (0.00-0.30) K/uL Abs Immat Gran (auto) (0.00-0.30) K/uL Imm/Tot Granulo (auto) % VBG pH (7.32-7.43) VBG pCO2 (40-50) mmHG VBG pO2 (25-47) mmHG VBG HCO3 (21-28) mmol/L Sodium (135-149) mmol/L Potassium (3.6-5.1) mmol/L Chloride (96-114) mmol/L Carbon Dioxide (20-32) mmol/L BUN (5-24) mg/dL Creatinine (0.5-1.5) mg/dL Estimated Creat Clear Estimated GFR ml/min Glucose (60-115) mg/dL Calcium (8.4-10.6) mg/dL Total Bilirubin (0.1-1.5) mg/dL Direct Bilirubin (0.0-0.5) mg/dL AST (12-35) U/L ALT (4-50) U/L Alkaline Phosphatase (40-150) U/L Total Protein (6.0-8.3) g/dL Albumin (3.3-5.0) g/dL TSH (0.270-4.20) uIU/mL Urine Color [place] A (Yellow) Urine Appearance Clear (Clear) Urine pH 7.0 (5.0-8.5) Ur Specific [place] 1.020 (1.000-1.030) Urine Protein 1+ A (Negative) Urine Glucose (UA) Trace A (Negative) Urine Ketones Trace A (Negative) Urine Blood Negative (Negative) Urine Nitrite Negative (Negative) Urine Bilirubin 1+ A (Negative) Urine Urobilinogen 2.0 A (0.2-1.0) Ur Leukocyte Esterase Negative (Negative) Urine RBC 0-2 (0-2) Urine WBC 0-2 (0-5) Ur Squamous Epith Cells None (None-Few) Urine Bacteria None (None) Salicylates (1.0-10) mg/dL Urine Opiates Screen Negative (Negative) Ur Oxycodone Screen Negative (Negative) Urine Methadone Screen Negative (Negative) Ur Propoxyphene Screen Negative (Negative) Acetaminophen (10.0-30.0) ug/mL Ur Barbiturates Screen Negative (Negative) U Tricyclic Antidepress POSITIVE A* (Negative) Ur Phencyclidine Scrn Negative (Negative) Ur Amphetamines Screen Negative (Negative) U Methamphetamines Scrn Negative (Negative) U Benzodiazepines Scrn Negative (Negative) Urine Cocaine Screen Negative (Negative) U Marijuana (THC) Screen Negative (Negative) Ur Drug Screen Comment See Note Ethyl Alcohol (0.01-0.03) % SARS-CoV-2 (PCR) Negative SARS-CoV-2 (Negative) Influenza Type A (PCR) Negative PCR FLU A (Negative) Influenza Type B (PCR) Negative PCR FLU B (Negative) RSV (PCR) Negative PCR RSV (Negative) 08/27/22 08/27/22 08/27/22 Range/Units 10:20 10:20 10:20 WBC 2.75 L (4.50-11.00) K/uL RBC 4.05 L (4.30-5.90) m/uL Hgb 11.0 L (13.5-17.5) gm/dL Hct 34.9 L (37.0-53.0) % MCV 86 (80-100) fL MCH 27 (26-34) pg MCHC 32 (32-36) gm/dL RDW Coeff of Caridad 15.7 H (11.5-15.5) % Plt Count 70 L (140-440) K/uL Neut % (Auto) 65.4 (42.0-72.0) % Lymph % (Auto) 18.2 L (20-44) % Kinney % (Auto) 14.9 H (0.0-11.0) % Eos % (Auto) 0.4 (0.0-7.0) % Baso % (Auto) 0.7 (0.0-3.0) % Neut # (Auto) 1.80 (1.7-7.0) K/uL Lymph # (Auto) 0.50 L (0.90-2.90) K/uL Kinney # (Auto) 0.40 (0.00-0.90) K/UL Eos # (Auto) 0.00 (0.00-0.50) K/uL Baso # (Auto) 0.00 (0.00-0.30) K/uL Abs Immat Gran (auto) 0.00 (0.00-0.30) K/uL Imm/Tot Granulo (auto) 0.4 % VBG pH (7.32-7.43) VBG pCO2 (40-50) mmHG VBG pO2 (25-47) mmHG VBG HCO3 (21-28) mmol/L Sodium 137 (135-149) mmol/L Potassium 4.4 (3.6-5.1) mmol/L Chloride 108 (96-114) mmol/L Carbon Dioxide 24 (20-32) mmol/L BUN 10 (5-24) mg/dL Creatinine 0.5 (0.5-1.5) mg/dL Estimated Creat Clear 184.53 Estimated GFR 125 ml/min Glucose 96 (60-115) mg/dL Calcium 8.1 L (8.4-10.6) mg/dL Total Bilirubin 2.2 H (0.1-1.5) mg/dL Direct Bilirubin 0.5 (0.0-0.5) mg/dL AST 41 H (12-35) U/L ALT 21 (4-50) U/L Alkaline Phosphatase 203 H (40-150) U/L Total Protein 6.7 (6.0-8.3) g/dL Albumin 3.6 (3.3-5.0) g/dL TSH (0.270-4.20) uIU/mL Urine Color (Yellow) Urine Appearance (Clear) Urine pH (5.0-8.5) Ur Specific [place] (1.000-1.030) Urine Protein (Negative) Urine Glucose (UA) (Negative) Urine Ketones (Negative) Urine Blood (Negative) Urine Nitrite (Negative) Urine Bilirubin (Negative) Urine Urobilinogen (0.2-1.0) Ur Leukocyte Esterase (Negative) Urine RBC (0-2) Urine WBC (0-5) Ur Squamous Epith Cells (None-Few) Urine Bacteria (None) Salicylates < 1.0 L (1.0-10) mg/dL Urine Opiates Screen (Negative) Ur Oxycodone Screen (Negative) Urine Methadone Screen (Negative) Ur Propoxyphene Screen (Negative) Acetaminophen < 10.0 L (10.0-30.0) ug/mL Ur Barbiturates Screen (Negative) U Tricyclic Antidepress (Negative) Ur Phencyclidine Scrn (Negative) Ur Amphetamines Screen (Negative) U Methamphetamines Scrn (Negative) U Benzodiazepines Scrn (Negative) Urine Cocaine Screen (Negative) U Marijuana (THC) Screen (Negative) Ur Drug Screen Comment Ethyl Alcohol < 0.01 L (0.01-0.03) % SARS-CoV-2 (PCR) (Negative) Influenza Type A (PCR) (Negative) Influenza Type B (PCR) (Negative) RSV (PCR) (Negative) 08/27/22 08/27/22 Range/Units 10:20 16:38 WBC (4.50-11.00) K/uL RBC (4.30-5.90) m/uL Hgb (13.5-17.5) gm/dL Hct (37.0-53.0) % MCV (80-100) fL MCH (26-34) pg MCHC (32-36) gm/dL RDW Coeff of Caridad (11.5-15.5) % Plt Count (140-440) K/uL Neut % (Auto) (42.0-72.0) % Lymph % (Auto) (20-44) % Kinney % (Auto) (0.0-11.0) % Eos % (Auto) (0.0-7.0) % Baso % (Auto) (0.0-3.0) % Neut # (Auto) (1.7-7.0) K/uL Lymph # (Auto) (0.90-2.90) K/uL Kinney # (Auto) (0.00-0.90) K/UL Eos # (Auto) (0.00-0.50) K/uL Baso # (Auto) (0.00-0.30) K/uL Abs Immat Gran (auto) (0.00-0.30) K/uL Imm/Tot Granulo (auto) % VBG pH 7.457 H (7.32-7.43) VBG pCO2 38 L (40-50) mmHG VBG pO2 47.0 (25-47) mmHG VBG HCO3 27 (21-28) mmol/L Sodium (135-149) mmol/L Potassium (3.6-5.1) mmol/L Chloride (96-114) mmol/L Carbon Dioxide (20-32) mmol/L BUN (5-24) mg/dL Creatinine (0.5-1.5) mg/dL Estimated Creat Clear Estimated GFR ml/min Glucose (60-115) mg/dL Calcium (8.4-10.6) mg/dL Total Bilirubin (0.1-1.5) mg/dL Direct Bilirubin (0.0-0.5) mg/dL AST (12-35) U/L ALT (4-50) U/L Alkaline Phosphatase (40-150) U/L Total Protein (6.0-8.3) g/dL Albumin (3.3-5.0) g/dL TSH 0.235 L (0.270-4.20) uIU/mL Urine Color (Yellow) Urine Appearance (Clear) Urine pH (5.0-8.5) Ur Specific [place] (1.000-1.030) Urine Protein (Negative) Urine Glucose (UA) (Negative) Urine Ketones (Negative) Urine Blood (Negative) Urine Nitrite (Negative) Urine Bilirubin (Negative) Urine Urobilinogen (0.2-1.0) Ur Leukocyte Esterase (Negative) Urine RBC (0-2) Urine WBC (0-5) Ur Squamous Epith Cells (None-Few) Urine Bacteria (None) Salicylates (1.0-10) mg/dL Urine Opiates Screen (Negative) Ur Oxycodone Screen (Negative) Urine Methadone Screen (Negative) Ur Propoxyphene Screen (Negative) Acetaminophen (10.0-30.0) ug/mL Ur Barbiturates Screen (Negative) U Tricyclic Antidepress (Negative) Ur Phencyclidine Scrn (Negative) Ur Amphetamines Screen (Negative) U Methamphetamines Scrn (Negative) U Benzodiazepines Scrn (Negative) Urine Cocaine Screen (Negative) U Marijuana (THC) Screen (Negative) Ur Drug Screen Comment Ethyl Alcohol (0.01-0.03) % SARS-CoV-2 (PCR) (Negative) Influenza Type A (PCR) (Negative) Influenza Type B (PCR) (Negative) RSV (PCR) (Negative) ECG Data Attestation: I personally reviewed and interpreted this ECG as follows: (Normal sinus rhythm with prolonged QT with a QT of 382 and a QTC of 47. This is very similar to 08/19/2022. rate of 89) Discharge Plan Discharge Clinical Impression: Alcohol abuse, Depression, Suicide attempt Prescriptions: No Action quetiapine 25 mg tablet 50 mg PO DIRECTED Label Comments: TAKE 1 TABLET BY MOUTH TWICE A DAY (DME) OneTouch Ultra Test Strip MISCELLANEOUS Label Comments: USE DIRECTED BY DOCTOR omeprazole 40 mg capsule,delayed release(DR/EC) 40 mg DAILY Label Comments: TAKE 1 CAPSULE BY MOUTH DAILY spironolactone 25 mg tablet 25 mg PO DAILY Label Comments: TAKE 1 TABLET BY MOUTH EVERY DAY glimepiride 2 mg tablet 2 mg PO DAILY Label Comments: TAKE 1 TABLET BY MOUTH ONCE DAILY WITH A MEAL. vitamin A 10,000 unit capsule 10,000 unit PO DAILY Label Comments: TAKE 1 CAPSULE BY MOUTH EVERY DAY pantoprazole 40 mg tablet,delayed release (DR/EC) 40 mg PO DAILY Label Comments: TAKE 1 TABLET BY MOUTH EVERY DAY escitalopram oxalate 20 mg tablet 20 mg DAILY Label Comments: TAKE 1 TABLET BY MOUTH EVERY DAY bupropion HCl 300 mg tablet extended release 24 hr 300 mg PO DAILY Label Comments: TAKE 1 TABLET BY MOUTH EVERY DAY cholecalciferol (vitamin D3) 1,250 mcg (50,000 unit) capsule Label Comments: TAKE 1 CAPSULE BY MOUTH ONE DAY A WEEK furosemide 20 mg tablet 20 mg PO DAILY Qty: 3 0RF Follow Up/Referrals: Provider,Not a Local [Referring] -
[2022-08-27 10:28] LABS: Tricyclic Antidepressant Urine POSITIVE (Negative)
[2022-08-27 10:28] LABS: PCR FLU A Negative PCR FLU A (Negative); PCR FLU B Negative PCR FLU B (Negative); PCR RSV Negative PCR RSV (Negative)
[2022-08-27 10:29] LABS: HCO3 VBG 27 mmol/L (21-28); PCO2 VBG 38 mmHG (40-50); pH VBG 7.457 (7.32-7.43)
[2022-08-27 10:29] LABS: SARS PCR* Negative SARS-CoV-2 (Negative)
[2022-08-27 10:31] LABS: Basophils Percent Auto 0.7 % (0.0-3.0); Eosinophils Percent Auto 0.4 % (0.0-7.0); Hematocrit 34.9 % (37.0-53.0); Immature Granulocytes Pct Auto 0.4 %; Lymphocytes Percent Auto 18.2 % (20-44); Mean Corpuscular HGB Conc 32 gm/dL (32-36); Mean Corpuscular Hemoglobin 27 pg (26-34); Mean Corpuscular Volume 86 fL (80-100); Monocytes Percent Auto 14.9 % (0.0-11.0); Neutrophils Percent Auto 65.4 % (42.0-72.0); Platelet Count* 70 K/uL (140-440); RDW Coefficient of Variation % 15.7 % (11.5-15.5); Red Blood Count 4.05 m/uL (4.30-5.90); White Blood Count* 2.75 K/uL (4.50-11.00)
[2022-08-27 10:34] LABS: Slide Review Reflex No
--- NOTE | 2022-08-27 10:48 | ED.NURSE ---
DEC assessment started.
[2022-08-27 10:50] LABS: Albumin* 3.6 g/dL (3.3-5.0)
[2022-08-27 10:51] LABS: Chloride* 108 mmol/L (96-114); Sodium* 137 mmol/L (135-149)
[2022-08-27 10:52] LABS: Potassium* 4.4 mmol/L (3.6-5.1)
[2022-08-27 10:53] LABS: Aspartate Amino Transferase* 41 U/L (12-35); Bilirubin Direct* 0.5 mg/dL (0.0-0.5); Bilirubin Total* 2.2 mg/dL (0.1-1.5); Total Protein* 6.7 g/dL (6.0-8.3)
[2022-08-27 10:54] LABS: Alanine Aminotransferase* 21 U/L (4-50); Alkaline Phosphatase* 203 U/L (40-150); Carbon Dioxide* 24 mmol/L (20-32); Creatinine* 0.5 mg/dL (0.5-1.5); Est. Creatinine Clearance* 184.53; Estimated Glomerular Filt Rate 125 ml/min
[2022-08-27 10:55] LABS: Blood Urea Nitrogen* 10 mg/dL (5-24); Calcium* 8.1 mg/dL (8.4-10.6); Glucose* 96 mg/dL (60-115)
[2022-08-27 10:59] LABS: Acetaminophen* < 10.0 ug/mL (10.0-30.0)
[2022-08-27 11:00] LABS: Ethanol* < 0.01 % (0.01-0.03); Salicylate* < 1.0 mg/dL (1.0-10)
--- NOTE | 2022-08-27 15:51 | ED.NURSE ---
Pt has been resting in room, appears to be resting comfortably. Pt is easily rousable to voice and A&O.
[2022-08-27 17:17] LABS: Appearance Urine Clear (Clear); Bilirubin Urine 1+ (Negative); Blood Urine Negative (Negative); Color Urine Orange (Yellow); Glucose Urine Trace (Negative); Ketones Urine Trace (Negative); Leukocyte Esterase Urine Negative (Negative); Nitrite Urine Negative (Negative); Protein Urine 1+ (Negative)
[2022-08-27 17:48] LABS: RBC Urine 0-2 (0-2); WBC Urine 0-2 (0-5)
[2022-08-27 17:52] LABS: Thyroid Stimulating Hormone* 0.235 uIU/mL (0.270-4.20)
--- NOTE | 2022-08-27 17:56 | ED.NURSE ---
Pt provided with meal tray, pt ate approx 1/3 of food in tray.
--- NOTE | 2022-08-27 20:01 | ED.NURSE ---
Report called to Rhea THOMPSON.
== END 2022-08-27 20:09 | disposition home or self-care (01) ==
LOC: ED 12:04
PROVIDERS: Emergency Provider Family Medicine; PCP Family Medicine
DX: F10.10 Alcohol abuse, uncomplicated (principal); R45.851 Suicidal ideations
CPT/HCPCS: 36415; 80048; 80076; 80143; 80179; 80306; 81003; 81015; 82077; 82803; 84443; 85025; 87502; 87634; 87635; 93005; 99284

== ENCOUNTER 2022-08-27 20:02 | Outpatient (CLI) | payer OTHER, SELFPAY | END 2022-08-27 20:03 | disposition home or self-care (01) | LOC: AMB 09-15 08:15 | PROVIDERS: PCP Family Medicine; Visit Provider Internal Medicine | DX: R45.851 Suicidal ideations (principal) | CPT/HCPCS: A0425; A0426 ==

== ENCOUNTER 2022-09-17 10:25 | Outpatient (CLI) | payer OTHER, SELFPAY | END 2022-09-17 10:26 | disposition home or self-care (01) | LOC: AMB 09-24 11:12 | PROVIDERS: PCP Family Medicine; Visit Provider Family Medicine | DX: R45.851 Suicidal ideations (principal) | CPT/HCPCS: A0425; A0427 ==

== ENCOUNTER 2022-09-17 10:55 | Inpatient (IN) | payer OTHER, SELFPAY ==
[2022-09-17] VITALS (29 sets, daily range): BP systolic 105–140; BP diastolic 51–64; PULSE 106–122; RESP 18–20; TEMP 36.8–37.1; O2SAT 90–97; BMI 40.9; BMI 1970.7
--- NOTE | 2022-09-17 11:20 | ED.NURSE ---
On pt arrival, pt noted to still be wearing hospital scrub top from [facility]. Pt had nicotine patch dated 09/07/22 on his R shoulder. Pt was not wearing any pants on arrival, per EMS pt was found with no pants on. Computer Consultant contacted [facility], they stated pt was discharged from their facility on 09/07/22. notified of all these findings.
[2022-09-17 11:44] LABS: Lactate* 4.7 mmol/L (0.5-1.9)
[2022-09-17 11:48] LABS: Basophils Absolute Auto 0.03 K/uL (0.00-0.30); Basophils Percent Auto 0.4 % (0.0-3.0); Eosinophils Absolute Auto 0.02 K/uL (0.00-0.50); Eosinophils Percent Auto 0.2 % (0.0-7.0); Hematocrit 35.2 % (37.0-53.0); Hemoglobin* 11.3 gm/dL (13.5-17.5); Immature Granulocytes Abs Auto 0.05 K/uL (0.00-0.30); Immature Granulocytes Pct Auto 0.6 %; Lymphocytes Percent Auto 14.4 % (20-44); Mean Corpuscular HGB Conc 32 gm/dL (32-36); Mean Corpuscular Hemoglobin 26 pg (26-34); Mean Corpuscular Volume 82 fL (80-100); Monocytes Percent Auto 7.8 % (0.0-11.0); Neutrophils Percent Auto 76.6 % (42.0-72.0); Platelet Count* 180 K/uL (140-440); RDW Coefficient of Variation % 16.7 % (11.5-15.5); Red Blood Count 4.31 m/uL (4.30-5.90); White Blood Count* 8.45 K/uL (4.50-11.00)
[2022-09-17 11:51] LABS: Slide Review Reflex No
--- NOTE | 2022-09-17 11:51 | ED.GENADULT ---
HPI - General Adult General Chief complaint: Burn/Smoke Inhalation Stated complaint: Mental health Time Seen by Provider: 09/17/22 11:18 Source: patient Mode of arrival: EMS Limitations: no limitations History of Present Illness HPI narrative: 47-year-old male with a history of alcoholism, substance use disorder, depression, cirrhosis presenting to the ER today after inhaling several cans of dust off. Patient states that he is trying to kill himself. He was recently hospitalized for psychiatric management. Was sent home on 09/07. He has not left his house since he has arrived home. EMS found him covered in stool and urine sitting on the ground. Multiple cans of Dust-off around his apartment. Patient is not very forthcoming with what has been happening in his home. Poison control was contacted, cardiac monitoring and troponins were recommended. Related Data Home Medications Medication Instructions Recorded Confirmed blood sugar diagnostic (OneTouch 06/22/22 06/22/22 Ultra Test strips) bupropion HCl 300 mg 24 hr tablet, 300 mg PO DAILY 06/22/22 09/17/22 extended release cholecalciferol (vitamin D3) 1,250 5,000 mcg DAILY 06/22/22 mcg (50,000 unit) capsule escitalopram oxalate 20 mg tablet 20 mg PO DAILY 06/22/22 09/17/22 glimepiride 2 mg tablet 2 mg PO DAILY 06/22/22 09/17/22 pantoprazole 40 mg tablet,delayed 40 mg PO DAILY 06/22/22 09/17/22 release quetiapine 25 mg tablet 50 mg PO DIRECTED 06/22/22 09/17/22 vitamin A 10,000 unit capsule 10,000 unit PO DAILY 06/22/22 09/17/22 hydroxyzine HCl 50 mg tablet 50 mg PO TID PRN 09/17/22 09/17/22 lithium carbonate 300 mg tablet 300 mg PO HS 09/17/22 09/17/22 lithium carbonate 450 mg 450 mg PO HS 09/17/22 09/17/22 tablet,extended release multivitamin (Daily Multi-Vitamin 1 tab PO DAILY 09/17/22 09/17/22 tablet) spironolactone 50 mg tablet 50 mg PO DAILY 09/17/22 09/17/22 Previous Rx's Medication Instructions Recorded furosemide 20 mg tablet 20 mg PO DAILY #3 tabs 08/19/22 Allergies Allergy/AdvReac Type Severity Reaction Status Date / Time No Known Drug Allergies Allergy Verified 09/17/22 11:18 Review of Systems Status of ROS: Reports: unobtainable due to mental status [facility] Social History Smoking Status: Former smoker How often do you have a drink containing alcohol: never AUDIT-C Alcohol total score: 0 Non-prescribed substance use: denies use service: No Exam Narrative: Exam Narrative: Overweight patient in no acute distress, groggy. Answers questions appropriately although is very slow to respond. GCS is 1 14, 1 point off for not opening eyes spontaneously. HEENT: Normocephalic atraumatic. Pupils are equally round reactive to light. Extraocular muscles are intact. Conjunctivae are moist without mild icterus noted. Moist mucous membranes with very poor oral hygiene. Posterior pharynx is normal. Neck is soft . Cardiovascular: Tachycardic. S1-S2 present without murmurs. Lungs: Clear to auscultation bilaterally no wheezes rhonchi or rales are appreciated. Patient takes deep breaths without any discomfort. Abdomen: Soft and nontender nondistended with normal bowel sounds. No guarding or rebound. Patient has a large pannus, underneath that pannus he has very moist and malodorous skin. The skin is erythematous with some blistering. He has an abrasion on the anterior abdomen. Extremities: Bilateral lower extremities have 2+ pitting edema with Lake induration and chronic skin changes. He has erythema from the ankles to the upper shins. Skin is warm bilaterally. Patient has urine and feces over his extremities. Skin: Patient is slightly jaundiced. Const: Vital Signs, click to edit/add: Vital Signs - 24 hr 09/17/22 11:10 09/17/22 11:25 09/17/22 11:27 Temperature 98.3 F Pulse Rate 114 H Pulse Rate [Right Pulse Oximeter] 115 H Respiratory Rate 18 Blood Pressure Blood Pressure [Ri ght Upper Arm] 140/61 H Pulse Oximetry 97 96 95 Oxygen Delivery Me thod Room Air 09/17/22 11:30 09/17/22 11:31 09/17/22 11:32 Temperature Pulse Rate 114 H 116 H 116 H Pulse Rate [Right Pulse Oximeter] Respiratory Rate Blood Pressure 122/51 L Blood Pressure [Ri ght Upper Arm] Pulse Oximetry 95 97 96 Oxygen Delivery Me thod 09/17/22 12:51 09/17/22 12:52 09/17/22 12:53 Temperature Pulse Rate 114 H 115 H 116 H Pulse Rate [Right Pulse Oximeter] Respiratory Rate Blood Pressure 132/63 Blood Pressure [Ri ght Upper Arm] Pulse Oximetry 96 96 96 Oxygen Delivery Me thod 09/17/22 13:00 09/17/22 13:01 09/17/22 13:02 Temperature Pulse Rate 115 H 117 H 116 H Pulse Rate [Right Pulse Oximeter] Respiratory Rate Blood Pressure 127/61 Blood Pressure [Ri ght Upper Arm] Pulse Oximetry 95 94 93 Oxygen Delivery Me thod 09/17/22 13:30 09/17/22 13:31 09/17/22 14:00 Temperature Pulse Rate 117 H 116 H 121 H Pulse Rate [Right Pulse Oximeter] Respiratory Rate Blood Pressure 125/62 Blood Pressure [Ri ght Upper Arm] Pulse Oximetry 94 94 90 Oxygen Delivery Me thod 09/17/22 14:02 Temperature Pulse Rate 119 H Pulse Rate [Right Pulse Oximeter] Respiratory Rate Blood Pressure 118/58 L Blood Pressure [Ri ght Upper Arm] Pulse Oximetry 91 Oxygen Delivery Me thod Course Course Hospital Course: IV was established and patient received 2 L of normal saline. 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 No obvious arrhythmia is noted while here. Patient was cleaned up by nursing. Labs reviewed, lactate elevated. Repeat lactate came down to 2.2 from 4.7. Patient unable to get up without assistance. Dr. Hummel accepting the patient for inpatient care. Vital Signs Vital signs: Initial Vital Signs Temperature 98.3 F 09/17/22 11:10 Temperature Source Temporal Artery Scan 09/17/22 11:10 Pulse Rate 115 H 09/17/22 11:10 Pulse Rhythm 09/17/22 11:10 Respiratory Rate 18 09/17/22 11:10 Blood Pressure 140/61 H 09/17/22 11:10 Blood Pressure Mean 87 09/17/22 11:10 Blood Pressure Position Supine 09/17/22 11:10 Pulse Oximetry 97 09/17/22 11:10 Oxygen Delivery Method 09/17/22 11:10 Vital Signs Temperature 98.3 F 09/17/22 11:10 Pulse Rate 115 H 09/17/22 11:10 Respiratory Rate 18 09/17/22 11:10 Blood Pressure 140/61 H 09/17/22 11:10 Pulse Oximetry 97 09/17/22 11:10 Oxygen Delivery Method 09/17/22 11:10 Temperature 98.3 F 09/17/22 11:10 Pulse Rate 119 H 09/17/22 14:02 Respiratory Rate 18 09/17/22 11:10 Blood Pressure 118/58 L 09/17/22 14:02 Pulse Oximetry 91 09/17/22 14:02 Oxygen Delivery Method 09/17/22 11:10 Medical Decision Making MDM Narrative Medical decision making narrative: [age] year male with depression, substance use disorder presenting with weakness and inability to care for himself. Patient will be admitted for further management. Lab Data Lab results reviewed: Yes I reviewed the patient's lab results Labs: Lab Results 09/17/22 09/17/22 09/17/22 Range/Units 11:05 11:35 11:35 WBC 8.45 (4.50-11.00) K/uL RBC 4.31 (4.30-5.90) m/uL Hgb 11.3 L (13.5-17.5) gm/dL Hct 35.2 L (37.0-53.0) % MCV 82 (80-100) fL MCH 26 (26-34) pg MCHC 32 (32-36) gm/dL RDW Coeff of Caridad 16.7 H (11.5-15.5) % Plt Count 180 (140-440) K/uL Neut % (Auto) 76.6 H (42.0-72.0) % Lymph % (Auto) 14.4 L (20-44) % [place] % (Auto) 7.8 (0.0-11.0) % Eos % (Auto) 0.2 (0.0-7.0) % Baso % (Auto) 0.4 (0.0-3.0) % Neut # (Auto) 6.50 (1.7-7.0) K/uL Lymph # (Auto) 1.20 (0.90-2.90) K/uL [place] # (Auto) 0.70 (0.00-0.90) K/UL Eos # (Auto) 0.02 (0.00-0.50) K/uL Baso # (Auto) 0.03 (0.00-0.30) K/uL Abs Immat Gran (auto) 0.05 (0.00-0.30) K/uL Imm/Tot Granulo (auto) 0.6 % ESR (2-15) mm/hr INR (0.91-1.10) Sodium (135-149) mmol/L Potassium (3.6-5.1) mmol/L Chloride (96-114) mmol/L Carbon Dioxide (20-32) mmol/L BUN (5-24) mg/dL Creatinine (0.5-1.5) mg/dL Estimated Creat Clear Estimated GFR ml/min Glucose (60-115) mg/dL Lactate (0.5-1.9) mmol/L Calcium (8.4-10.6) mg/dL Total Bilirubin (0.1-1.5) mg/dL Direct Bilirubin (0.0-0.5) mg/dL AST (12-35) U/L ALT (4-50) U/L Alkaline Phosphatase (40-150) U/L Ammonia 24.0 (13.1-30.0) umol/L Total Creatine Kinase (54-186) U/L Troponin I (0.01-0.04) ng/mL C-Reactive Protein (0.5-1.0) mg/dL NT-Pro-B Natriuret Pep (0-125) PG/mL Total Protein (6.0-8.3) g/dL Albumin (3.3-5.0) g/dL Lipase (23-300) U/L Urine Color (Yellow) Urine Appearance (Clear) Urine pH (5.0-8.5) Ur Specific [place] (1.000-1.030) Urine Protein (Negative) Urine Glucose (UA) (Negative) Urine Ketones (Negative) Urine Blood (Negative) Urine Nitrite (Negative) Urine Bilirubin (Negative) Urine Urobilinogen (0.2-1.0) Ur Leukocyte Esterase (Negative) Urine RBC (0-2) Urine WBC (0-5) Ur Squamous Epith Cells (None-Few) Urine Bacteria (None) Salicylates (1.0-10) mg/dL Urine Opiates Screen (Negative) Ur Oxycodone Screen (Negative) Urine Methadone Screen (Negative) Ur Propoxyphene Screen (Negative) Acetaminophen (10.0-30.0) ug/mL Ur Barbiturates Screen (Negative) U Tricyclic Antidepress (Negative) Ur Phencyclidine Scrn (Negative) Ur Amphetamines Screen (Negative) U Methamphetamines Scrn (Negative) U Benzodiazepines Scrn (Negative) Urine Cocaine Screen (Negative) U Marijuana (THC) Screen (Negative) Ur Drug Screen Comment Ethyl Alcohol (0.01-0.03) % SARS-CoV-2 (PCR) Negative SARS-CoV-2 (Negative) Influenza Type A (PCR) Negative PCR FLU A (Negative) Influenza Type B (PCR) Negative PCR FLU B (Negative) RSV (PCR) Negative PCR RSV (Negative) 09/17/22 09/17/22 09/17/22 Range/Units 11:35 11:35 11:35 WBC (4.50-11.00) K/uL RBC (4.30-5.90) m/uL Hgb (13.5-17.5) gm/dL Hct (37.0-53.0) % MCV (80-100) fL MCH (26-34) pg MCHC (32-36) gm/dL RDW Coeff of Caridad (11.5-15.5) % Plt Count (140-440) K/uL Neut % (Auto) (42.0-72.0) % Lymph % (Auto) (20-44) % [place] % (Auto) (0.0-11.0) % Eos % (Auto) (0.0-7.0) % Baso % (Auto) (0.0-3.0) % Neut # (Auto) (1.7-7.0) K/uL Lymph # (Auto) (0.90-2.90) K/uL [place] # (Auto) (0.00-0.90) K/UL Eos # (Auto) (0.00-0.50) K/uL Baso # (Auto) (0.00-0.30) K/uL Abs Immat Gran (auto) (0.00-0.30) K/uL Imm/Tot Granulo (auto) % ESR 8 (2-15) mm/hr INR 1.48 H (0.91-1.10) Sodium 135 (135-149) mmol/L Potassium 3.9 (3.6-5.1) mmol/L Chloride 102 (96-114) mmol/L Carbon Dioxide 24 (20-32) mmol/L BUN 11 (5-24) mg/dL Creatinine 0.4 L (0.5-1.5) mg/dL Estimated Creat Clear 230.66 Estimated GFR 134 ml/min Glucose 192 H (60-115) mg/dL Lactate (0.5-1.9) mmol/L Calcium 8.3 L (8.4-10.6) mg/dL Total Bilirubin 4.1 H (0.1-1.5) mg/dL Direct Bilirubin 1.0 H (0.0-0.5) mg/dL AST 71 H (12-35) U/L ALT 31 (4-50) U/L Alkaline Phosphatase 161 H (40-150) U/L Ammonia (13.1-30.0) umol/L Total Creatine Kinase (54-186) U/L Troponin I < 0.01 L (0.01-0.04) ng/mL C-Reactive Protein 2.1 H (0.5-1.0) mg/dL NT-Pro-B Natriuret Pep 87 (0-125) PG/mL Total Protein 6.5 (6.0-8.3) g/dL Albumin 3.2 L (3.3-5.0) g/dL Lipase 101 (23-300) U/L Urine Color (Yellow) Urine Appearance (Clear) Urine pH (5.0-8.5) Ur Specific [place] (1.000-1.030) Urine Protein (Negative) Urine Glucose (UA) (Negative) Urine Ketones (Negative) Urine Blood (Negative) Urine Nitrite (Negative) Urine Bilirubin (Negative) Urine Urobilinogen (0.2-1.0) Ur Leukocyte Esterase (Negative) Urine RBC (0-2) Urine WBC (0-5) Ur Squamous Epith Cells (None-Few) Urine Bacteria (None) Salicylates < 1.0 L (1.0-10) mg/dL Urine Opiates Screen (Negative) Ur Oxycodone Screen (Negative) Urine Methadone Screen (Negative) Ur Propoxyphene Screen (Negative) Acetaminophen < 10.0 L (10.0-30.0) ug/mL Ur Barbiturates Screen (Negative) U Tricyclic Antidepress (Negative) Ur Phencyclidine Scrn (Negative) Ur Amphetamines Screen (Negative) U Methamphetamines Scrn (Negative) U Benzodiazepines Scrn (Negative) Urine Cocaine Screen (Negative) U Marijuana (THC) Screen (Negative) Ur Drug Screen Comment Ethyl Alcohol < 0.01 L (0.01-0.03) % SARS-CoV-2 (PCR) (Negative) Influenza Type A (PCR) (Negative) Influenza Type B (PCR) (Negative) RSV (PCR) (Negative) 09/17/22 09/17/22 09/17/22 Range/Units 11:35 13:33 13:33 WBC (4.50-11.00) K/uL RBC (4.30-5.90) m/uL Hgb (13.5-17.5) gm/dL Hct (37.0-53.0) % MCV (80-100) fL MCH (26-34) pg MCHC (32-36) gm/dL RDW Coeff of Caridad (11.5-15.5) % Plt Count (140-440) K/uL Neut % (Auto) (42.0-72.0) % Lymph % (Auto) (20-44) % [place] % (Auto) (0.0-11.0) % Eos % (Auto) (0.0-7.0) % Baso % (Auto) (0.0-3.0) % Neut # (Auto) (1.7-7.0) K/uL Lymph # (Auto) (0.90-2.90) K/uL [place] # (Auto) (0.00-0.90) K/UL Eos # (Auto) (0.00-0.50) K/uL Baso # (Auto) (0.00-0.30) K/uL Abs Immat Gran (auto) (0.00-0.30) K/uL Imm/Tot Granulo (auto) % ESR (2-15) mm/hr INR (0.91-1.10) Sodium (135-149) mmol/L Potassium (3.6-5.1) mmol/L Chloride (96-114) mmol/L Carbon Dioxide (20-32) mmol/L BUN (5-24) mg/dL Creatinine (0.5-1.5) mg/dL Estimated Creat Clear Estimated GFR ml/min Glucose (60-115) mg/dL Lactate 4.7 H* 2.2 H (0.5-1.9) mmol/L Calcium (8.4-10.6) mg/dL Total Bilirubin (0.1-1.5) mg/dL Direct Bilirubin (0.0-0.5) mg/dL AST (12-35) U/L ALT (4-50) U/L Alkaline Phosphatase (40-150) U/L Ammonia (13.1-30.0) umol/L Total Creatine Kinase 634 H (54-186) U/L Troponin I (0.01-0.04) ng/mL C-Reactive Protein (0.5-1.0) mg/dL NT-Pro-B Natriuret Pep (0-125) PG/mL Total Protein (6.0-8.3) g/dL Albumin (3.3-5.0) g/dL Lipase (23-300) U/L Urine Color (Yellow) Urine Appearance (Clear) Urine pH (5.0-8.5) Ur Specific [place] (1.000-1.030) Urine Protein (Negative) Urine Glucose (UA) (Negative) Urine Ketones (Negative) Urine Blood (Negative) Urine Nitrite (Negative) Urine Bilirubin (Negative) Urine Urobilinogen (0.2-1.0) Ur Leukocyte Esterase (Negative) Urine RBC (0-2) Urine WBC (0-5) Ur Squamous Epith Cells (None-Few) Urine Bacteria (None) Salicylates (1.0-10) mg/dL Urine Opiates Screen (Negative) Ur Oxycodone Screen (Negative) Urine Methadone Screen (Negative) Ur Propoxyphene Screen (Negative) Acetaminophen (10.0-30.0) ug/mL Ur Barbiturates Screen (Negative) U Tricyclic Antidepress (Negative) Ur Phencyclidine Scrn (Negative) Ur Amphetamines Screen (Negative) U Methamphetamines Scrn (Negative) U Benzodiazepines Scrn (Negative) Urine Cocaine Screen (Negative) U Marijuana (THC) Screen (Negative) Ur Drug Screen Comment Ethyl Alcohol (0.01-0.03) % SARS-CoV-2 (PCR) (Negative) Influenza Type A (PCR) (Negative) Influenza Type B (PCR) (Negative) RSV (PCR) (Negative) 09/17/22 09/17/22 Range/Units 13:45 13:45 WBC (4.50-11.00) K/uL RBC (4.30-5.90) m/uL Hgb (13.5-17.5) gm/dL Hct (37.0-53.0) % MCV (80-100) fL MCH (26-34) pg MCHC (32-36) gm/dL RDW Coeff of Caridad (11.5-15.5) % Plt Count (140-440) K/uL Neut % (Auto) (42.0-72.0) % Lymph % (Auto) (20-44) % [place] % (Auto) (0.0-11.0) % Eos % (Auto) (0.0-7.0) % Baso % (Auto) (0.0-3.0) % Neut # (Auto) (1.7-7.0) K/uL Lymph # (Auto) (0.90-2.90) K/uL [place] # (Auto) (0.00-0.90) K/UL Eos # (Auto) (0.00-0.50) K/uL Baso # (Auto) (0.00-0.30) K/uL Abs Immat Gran (auto) (0.00-0.30) K/uL Imm/Tot Granulo (auto) % ESR (2-15) mm/hr INR (0.91-1.10) Sodium (135-149) mmol/L Potassium (3.6-5.1) mmol/L Chloride (96-114) mmol/L Carbon Dioxide (20-32) mmol/L BUN (5-24) mg/dL Creatinine (0.5-1.5) mg/dL Estimated Creat Clear Estimated GFR ml/min Glucose (60-115) mg/dL Lactate (0.5-1.9) mmol/L Calcium (8.4-10.6) mg/dL Total Bilirubin (0.1-1.5) mg/dL Direct Bilirubin (0.0-0.5) mg/dL AST (12-35) U/L ALT (4-50) U/L Alkaline Phosphatase (40-150) U/L Ammonia (13.1-30.0) umol/L Total Creatine Kinase (54-186) U/L Troponin I (0.01-0.04) ng/mL C-Reactive Protein (0.5-1.0) mg/dL NT-Pro-B Natriuret Pep (0-125) PG/mL Total Protein (6.0-8.3) g/dL Albumin (3.3-5.0) g/dL Lipase (23-300) U/L Urine Color Brown A (Yellow) Urine Appearance Clear (Clear) Urine pH 5.5 (5.0-8.5) Ur Specific [place] 1.025 (1.000-1.030) Urine Protein Negative (Negative) Urine Glucose (UA) Trace A (Negative) Urine Ketones 1+ A (Negative) Urine Blood Negative (Negative) Urine Nitrite Negative (Negative) Urine Bilirubin 1+ A (Negative) Urine Urobilinogen >=8.0 (0.2-1.0) Ur Leukocyte Esterase Negative (Negative) Urine RBC 0-2 (0-2) Urine WBC 0-2 (0-5) Ur Squamous Epith Cells None (None-Few) Urine Bacteria None (None) Salicylates (1.0-10) mg/dL Urine Opiates Screen Negative (Negative) Ur Oxycodone Screen Negative (Negative) Urine Methadone Screen Negative (Negative) Ur Propoxyphene Screen Negative (Negative) Acetaminophen (10.0-30.0) ug/mL Ur Barbiturates Screen Negative (Negative) U Tricyclic Antidepress Negative (Negative) Ur Phencyclidine Scrn Negative (Negative) Ur Amphetamines Screen Negative (Negative) U Methamphetamines Scrn Negative (Negative) U Benzodiazepines Scrn Negative (Negative) Urine Cocaine Screen Negative (Negative) U Marijuana (THC) Screen Negative (Negative) Ur Drug Screen Comment See Note Ethyl Alcohol (0.01-0.03) % SARS-CoV-2 (PCR) (Negative) Influenza Type A (PCR) (Negative) Influenza Type B (PCR) (Negative) RSV (PCR) (Negative) ECG Data Attestation: I personally reviewed and interpreted this ECG as follows: (Sinus tachycardia with a pulse of 115.) Discharge Plan Discharge Clinical Impression: Unable to care for self, Depression, Huffing, Weakness Patient Disposition: Admitted As Inpatient Condition: Stable Prescriptions: No Action quetiapine 25 mg tablet 50 mg PO DIRECTED Label Comments: TAKE 1 TABLET BY MOUTH TWICE A DAY (DME) OneTouch Ultra Test Strip MISCELLANEOUS Label Comments: USE DIRECTED BY DOCTOR omeprazole 40 mg capsule,delayed release(DR/EC) 40 mg PO DAILY Label Comments: TAKE 1 CAPSULE BY MOUTH DAILY spironolactone 25 mg tablet 25 mg PO DAILY Label Comments: TAKE 1 TABLET BY MOUTH EVERY DAY glimepiride 2 mg tablet 2 mg PO DAILY Label Comments: TAKE 1 TABLET BY MOUTH ONCE DAILY WITH A MEAL. vitamin A 10,000 unit capsule 10,000 unit PO DAILY Label Comments: TAKE 1 CAPSULE BY MOUTH EVERY DAY pantoprazole 40 mg tablet,delayed release (DR/EC) 40 mg PO DAILY Label Comments: TAKE 1 TABLET BY MOUTH EVERY DAY escitalopram oxalate 20 mg tablet 20 mg PO DAILY Label Comments: TAKE 1 TABLET BY MOUTH EVERY DAY bupropion HCl 300 mg tablet extended release 24 hr 300 mg PO DAILY Label Comments: TAKE 1 TABLET BY MOUTH EVERY DAY cholecalciferol (vitamin D3) 1,250 mcg (50,000 unit) capsule 5,000 mcg DAILY Label Comments: TAKE 1 CAPSULE BY MOUTH ONE DAY A WEEK furosemide 20 mg tablet 20 mg PO DAILY Qty: 3 0RF Follow Up/Referrals: Hanna Miller MD [Primary Care Provider] -
[2022-09-17 11:53] LABS: PCR FLU A Negative PCR FLU A (Negative); PCR FLU B Negative PCR FLU B (Negative); PCR RSV Negative PCR RSV (Negative)
[2022-09-17 11:56] LABS: SARS PCR* Negative SARS-CoV-2 (Negative)
[2022-09-17 12:25] LABS: Albumin* 3.2 g/dL (3.3-5.0); Chloride* 102 mmol/L (96-114)
[2022-09-17 12:26] LABS: Sodium* 135 mmol/L (135-149)
[2022-09-17 12:27] LABS: Potassium* 3.9 mmol/L (3.6-5.1)
[2022-09-17 12:28] LABS: Creatinine* 0.4 mg/dL (0.5-1.5); Est. Creatinine Clearance* 230.66; Estimated Glomerular Filt Rate 134 ml/min
[2022-09-17 12:29] LABS: Alkaline Phosphatase* 161 U/L (40-150); Aspartate Amino Transferase* 71 U/L (12-35); Bilirubin Total* 4.1 mg/dL (0.1-1.5); Blood Urea Nitrogen* 11 mg/dL (5-24); Carbon Dioxide* 24 mmol/L (20-32); Lipase* 101 U/L (23-300); Total Protein* 6.5 g/dL (6.0-8.3)
[2022-09-17 12:30] LABS: Alanine Aminotransferase* 31 U/L (4-50); Calcium* 8.3 mg/dL (8.4-10.6); Glucose* 192 mg/dL (60-115)
[2022-09-17 12:32] LABS: C Reactive Protein* 2.1 mg/dL (0.5-1.0)
[2022-09-17 12:34] LABS: Erythrocyte SedimentationRate* 8 mm/hr (2-15)
[2022-09-17 12:38] LABS: NT Pro B Type NatriureticPept* 87 PG/mL (0-125)
[2022-09-17 12:39] LABS: Acetaminophen* < 10.0 ug/mL (10.0-30.0); Ethanol* < 0.01 % (0.01-0.03); Salicylate* < 1.0 mg/dL (1.0-10)
[2022-09-17 12:44] LABS: Troponin I* < 0.01 ng/mL (0.01-0.04)
[2022-09-17] MEDS: 0.9 % SODIUM CHLORIDE 1000 ml 1,000 ML IV ×2 (12:45→14:00)
--- NOTE | 2022-09-17 13:02 | ED.NURSE ---
Pt appears to have been laying in his own urine and feces for unknown amount of time at home. Pt presents with strong smell of urine and feces. Dried feces and/or urine present in pt's groin, inguinal areas, genital area, rectal area, down both legs, and on both pt's feet. Pt cleaned by journalists and other writers and process environmental technician with wet washcloths and almaz wipes. Numerous small-medium sized pieces of feces were found adhered to pt's right leg; these feces pieces were removable with moderate effort without damaging pt skin. The following wounds and areas of skin breakdown were noted by journalists and other writers while cleaning pt: - Very shallow open wound approx 2cm below the umbilicus measuring ~[id number] with redness extending beyond wound borders. - Area of redness and swelling on lower medial abdomen, tender to touch. - Red, excoriated area of skin on left inguinal area measuring ~[id number]. - Bilateral redness on interior and posterior thighs, notably worse on right posterior thigh. - Bruising bilaterally on posterior just above buttocks: left side area of bruising appears in ~4cm line, right side area of bruising appears in ~[id number] circular area. - 2nd degree burn blisters on distal pads of all four fingers on pt's right hand. Pt reports these bowling were caused by the air cans he has been huffing at home.
[2022-09-17 13:16] LABS: INR 1.48 (0.91-1.10); Prothrombin Time 18.8 Seconds
[2022-09-17 13:45] LABS: Lactate* 2.2 mmol/L (0.5-1.9)
[2022-09-17 14:01] LABS: Appearance Urine Clear (Clear); Bilirubin Urine 1+ (Negative); Blood Urine Negative (Negative); Color Urine Brown (Yellow); Glucose Urine Trace (Negative); Ketones Urine 1+ (Negative); Leukocyte Esterase Urine Negative (Negative); Nitrite Urine Negative (Negative); Protein Urine Negative (Negative); Specific Gravity Urine 1.025 (1.000-1.030); Urobilinogen Urine >=8.0 (0.2-1.0); pH Urine 5.5 (5.0-8.5)
[2022-09-17 14:06] LABS: Amphetamine Screen Urine Negative (Negative); Barbiturate Screen Urine Negative (Negative); Benzodiazepines Screen Urine Negative (Negative); Cannabinoid Screen Urine Negative (Negative); Cocaine Screen Urine Negative (Negative); Methadone Screen Urine Negative (Negative); Methamphetamines Screen Urine Negative (Negative); Opiate Screen Urine Negative (Negative); Oxycodone Screen Urine Negative (Negative); Phencyclidine Screen Urine Negative (Negative); Tricyclic Antidepressant Urine Negative (Negative)
[2022-09-17 14:12] LABS: RBC Urine 0-2 (0-2); WBC Urine 0-2 (0-5)
--- NOTE | 2022-09-17 14:16 | W.PC.EDHO ---
Primary Language: Yoruba Preferred Language: Orientation Status: [] Alert & Oriented [x] Slight Confusion [] Known Dx Dementia Transfers By: [] Assist of 1 [x] Assist of 2 [] Lift Active Medications Discontinued Medications Generic Name Dose Route Start Last Admin Trade Name Gene PRN Reason Stop Dose Admin Sodium Chloride 1,000 mls @ 1,000 mls/hr 09/17/22 11:30 09/17/22 13:59 0.9 % Sodium Chloride 1000 Ml IV 09/17/22 12:29 Infused .Q1H JORDEN Infusion Sodium Chloride 1,000 mls @ 1,000 mls/hr 09/17/22 12:45 09/17/22 14:00 0.9 % Sodium Chloride 1000 Ml IV 09/17/22 13:44 1,000 mls/hr .Q1H JORDEN Administration Description of Symptoms ED Triage Present Problem patient lives alone at apartment has been huffing Description a least one can a day. EMS found multiple cases of dust off in apartment, unclear how many cans used but somewhere unopened. arrived at ED shaking and stated feeling cold. patient is alert and oriented. found in apartment with no pants on and noted the lower extremities are red, swollen, dried poop on right leg, lower abdomen is Firey red, moist, and blisters under the abdominal flap. [id number]. hx of cirrohsis and is wanting to ED Triage Date of Onset of 09/17/22 Symptoms Pain Pain Intensity 4 Pain Intensity 4 Pain Intensity 4 Pain Intensity 4 Pain Scale Used Miller-Snowden (Faces) Pain Scale Used Miller-Snowden (Faces) Pain Scale Used Miller-Snowden (Faces) Pain Scale Used Miller-Snowden (Faces) IV Insertion/Site Date of IV Line Insertion [ 09/17/22 Right Antecubital] Oxygen Administration Pulse Oximetry 91 Pulse Oximetry 90 Pulse Oximetry 94 Pulse Oximetry 94 Pulse Oximetry 93 Pulse Oximetry 94 Pulse Oximetry 95 Pulse Oximetry 96 Pulse Oximetry 96 Pulse Oximetry 96 Pulse Oximetry 96 Pulse Oximetry 97 Pulse Oximetry 95 Pulse Oximetry 95 Pulse Oximetry 96 Pulse Oximetry 97 Oxygen Delivery Method Room Air Cardiac Monitoring EKG Method 12 Lead
--- NOTE | 2022-09-17 14:18 | ED.NURSE ---
Pt O2 sats noted to drop into 80's% when he falls asleep. Easily rousable, O2 sats recover to 90's%. MD Tapia and MD Hummel notified.
[2022-09-17 14:19] LABS: Creatine Kinase* 634 U/L (54-186)
--- NOTE | 2022-09-17 15:02 | CRLHL7_ITS ---
For Patients: As a result of the Century Cures Act, medical imaging exams and procedure reports are released immediately into your electronic medical record. You may view this report before your referring provider. If you have questions, please contact your health care provider. INDICATION: Leg pain and swelling. TECHNIQUE: Ultrasound venous duplex bilateral lower extremity. Compression venous exam was performed using garcia-scale, color Doppler, and spectral Doppler analysis. COMPARISON: None. FINDINGS: Deep veins: Sonographic imaging demonstrates the bilateral common femoral, deep femoral, superficial femoral, popliteal, posterior tibial veins to be fully compressible with normal color Doppler blood flow. Superficial veins: Greater saphenous veins are fully compressible. Soft tissues: No popliteal cyst. IMPRESSION: Normal bilateral lower extremity venous ultrasound, no sign of deep venous thrombosis. Dictated by Sp Stark MD @ 09/17/2022 4:53:49 PM (Electronically Signed)
--- NOTE | 2022-09-17 15:15 | P.IMHP_ITS ---
Hospitalist- H&P: HPI History of Present Illness Date Seen: 09/17/22 Chief complaint: Mental health Narrative: Slava Patricio is a 47 year old male brought to the emergency room by EMS for recurrent suicide attempt. Patient reports he is depressed and tried to kill himself by huffing several cans of dust off. Similar circumstances led to mental health hospitalization in [place] from August 28 to September 07. Patient has been at home and has not left the house in the 10 days since discharge from the hospital. His cousin Michelle called EMS. Patient reports ongoing depression and ongoing suicidal intent. He has also had suicide attempts by overdose and wrist cutting in the past. This is about his 4th or 5th suicide attempt. When he was found by me EMS he was profoundly weak and hard to arouse. In the emergency department he was hypoxic and tachycardic. Poison Control was contacted. They recommended cardiac monitoring and serial troponins. Patient reports that he has been taking his medications. He has cirrhosis of the liver due to alcohol abuse. He has not been drinking alcohol for the last couple months. He is seeking a liver transplant through [facility]. Review of Systems Narrative: He reports some recent cold symptoms with cough and congestion. He is having no headache, chest pain, abdominal pain, vomiting. Reports his legs bilaterally are painful. This has been going on for several days. He also has a painful groin rash. [facility] Medical History (Updated 09/17/22 @ 15:48 by Elvin Hummel MD) Alcohol use disorder Alcoholic cirrhosis of liver Ankle fracture, right Anxiety Attempted suicide Diabetes mellitus Esophageal varices Major depression Morbid obesity with BMI of 40.0-44.9, adult Surgical History (Updated 09/17/22 @ 15:31 by Elvin Hummel MD) History of appendectomy History of cholecystectomy Family History (Updated 09/17/22 @ 15:33 by Elvin Hummel MD) Mother Breast cancer Colon cancer CHF (congestive heart failure) Father Multiple myeloma Social History (Updated 09/17/22 @ 15:36 by Elvin Hummel MD) Narrative: He lives in [place] by himself. He has been isolated in his home in the last 10 days since discharge from [place] mental health hospitalization. He has previously engaged with a and a sponsor for his alcohol use disorder. He has not been drinking in the last couple months. He goes to [facility] for specialty care including possible liver transplant, mental health, obesity/bariatric surgery evaluation. He has no immediate family. Closest family would be his cousin Michelle who called 911 today. He indicates she could be as power of mergers and acquisitions attorney. He is a former cigarette smoker. Formally chewed t obacco. Smoking Status: Former smoker How often do you have a drink containing alcohol: never AUDIT-C Alcohol total score: 0 Non-prescribed substance use: denies use service: No Meds Home Medications and Allergies Home Medications Medication Instructions Recorded Confirmed Type blood sugar diagnostic (OneTouch 06/22/22 06/22/22 History Ultra Test strips) bupropion HCl 300 mg 24 hr tablet, 300 mg PO DAILY 06/22/22 09/17/22 History extended release cholecalciferol (vitamin D3) 1,250 5,000 mcg PO .WEEKLY 06/22/22 09/17/22 History mcg (50,000 unit) capsule escitalopram oxalate 20 mg tablet 20 mg PO DAILY 06/22/22 09/17/22 History glimepiride 2 mg tablet 2 mg PO DAILY 06/22/22 09/17/22 History pantoprazole 40 mg tablet,delayed 40 mg PO DAILY 06/22/22 09/17/22 History release quetiapine 25 mg tablet 25 - 50 mg PO BID 06/22/22 09/17/22 History vitamin A 10,000 unit capsule 10,000 unit PO DAILY 06/22/22 09/17/22 History hydroxyzine HCl 50 mg tablet 50 mg PO TID PRN 09/17/22 09/17/22 History lithium carbonate 300 mg tablet 300 mg PO HS 09/17/22 09/17/22 History lithium carbonate 450 mg 450 mg PO HS 09/17/22 09/17/22 History tablet,extended release multivitamin (Daily Multi-Vitamin 1 tab PO DAILY 09/17/22 09/17/22 History tablet) spironolactone 50 mg tablet 50 mg PO DAILY 09/17/22 09/17/22 History Allergies Allergy/AdvReac Type Severity Reaction Status Date / Time No Known Drug Allergies Allergy Verified 09/17/22 11:18 Exam Narrative: Exam Narrative: He is lying on the gurney in the emergency department. He is sleeping but arouses to voice. He has slow mentation. Speech is slow but otherwise fluent. He is oriented to his circumstances. Head is without trauma. He has mild scleral icterus. extraocular movements are full. Visual batista intact. No facial asymmetry. Oropharynx with small airway. Neck is supple without mass or adenopathy. Respirations are clear to auscultation. No wheezing rales rhonchi. Cardiovascular: S1, S2, regular tachycardia. No gallop or rub. Abdomen: Bowel sounds active. Abdomen is soft. He has erythema in his bilateral intertriginous area extending up into his abdominal pannus most the way towards his umbilicus. Superficial Ulcer in his low abdomen, ruptured blister, about 3 x 5 cm below the umbilicus. Erythematous papules also present in the groin are a. This is malodorous. Upper extremities are unremarkable except he has blisters on 4th and 5th finger pads on his right hand and 3rd and 4th finger pads on his left hand. Lower extremities notable for bilateral edema and erythema over both calves. Calves are quite warm to touch. They are tender to touch as well. Intact pedal pulses. He is quite weak and unable to lift his legs off of the bed. Const: Vital Signs, click to edit/add: Vital Signs - 24 hr 09/17/22 11:10 09/17/22 11:25 09/17/22 11:27 Temperature 98.3 F Pulse Rate 114 H Pulse Rate [Right Pulse Oximeter] 115 H Respiratory Rate 18 Blood Pressure Blood Pressure [Ri ght Upper Arm] 140/61 H Pulse Oximetry 97 96 95 Oxygen Delivery Me thod Room Air 09/17/22 11:30 09/17/22 11:31 09/17/22 11:32 Temperature Pulse Rate 114 H 116 H 116 H Pulse Rate [Right Pulse Oximeter] Respiratory Rate Blood Pressure 122/51 L Blood Pressure [Ri ght Upper Arm] Pulse Oximetry 95 97 96 Oxygen Delivery Me thod 09/17/22 12:51 09/17/22 12:52 09/17/22 12:53 Temperature Pulse Rate 114 H 115 H 116 H Pulse Rate [Right Pulse Oximeter] Respiratory Rate Blood Pressure 132/63 Blood Pressure [Ri ght Upper Arm] Pulse Oximetry 96 96 96 Oxygen Delivery Me thod 09/17/22 13:00 09/17/22 13:01 09/17/22 13:02 Temperature Pulse Rate 115 H 117 H 116 H Pulse Rate [Right Pulse Oximeter] Respiratory Rate Blood Pressure 127/61 Blood Pressure [Ri ght Upper Arm] Pulse Oximetry 95 94 93 Oxygen Delivery Me thod 09/17/22 13:30 09/17/22 13:31 09/17/22 14:00 Temperature Pulse Rate 117 H 116 H 121 H Pulse Rate [Right Pulse Oximeter] Respiratory Rate Blood Pressure 125/62 Blood Pressure [Ri ght Upper Arm] Pulse Oximetry 94 94 90 Oxygen Delivery Me thod 09/17/22 14:02 09/17/22 14:30 09/17/22 14:31 Temperature Pulse Rate 119 H 117 H 119 H Pulse Rate [Right Pulse Oximeter] Respiratory Rate Blood Pressure 118/58 L 124/54 L Blood Pressure [Ri ght Upper Arm] Pulse Oximetry 91 92 92 Oxygen Delivery Me thod 09/17/22 14:32 09/17/22 15:00 09/17/22 15:01 Temperature Pulse Rate 117 H 118 H 122 H Pulse Rate [Right Pulse Oximeter] Respiratory Rate Blood Pressure 116/59 L Blood Pressure [Ri ght Upper Arm] Pulse Oximetry 95 91 93 Oxygen Delivery Me thod Documenting provider has reviewed patient's vital signs: yes Hospitalist - H&P: Result Labs Labs: Short CBC 09/17/22 Range/Units 11:35 WBC 8.45 (4.50-11.00) K/uL Hgb 11.3 L (13.5-17.5) gm/dL Hct 35.2 L (37.0-53.0) % Plt Count 180 (140-440) K/uL BMP 09/17/22 11:35 Sodium 135 Potassium 3.9 Chloride 102 Carbon Dioxide 24 BUN 11 Creatinine 0.4 L Glucose 192 H Calcium 8.3 L Cardiac Enzymes 09/17/22 09/17/22 Range/Units 11:35 13:33 Total Creatine Kinase 634 H (54-186) U/L Troponin I < 0.01 L (0.01-0.04) ng/mL Liver Function 09/17/22 Range/Units 11:35 Total Bilirubin 4.1 H (0.1-1.5) mg/dL Direct Bilirubin 1.0 H (0.0-0.5) mg/dL AST 71 H (12-35) U/L ALT 31 (4-50) U/L Alkaline Phosphatase 161 H (40-150) U/L Albumin 3.2 L (3.3-5.0) g/dL Urine 09/17/22 Range/Units 13:45 Urine Color Brown A (Yellow) Urine Appearance Clear (Clear) Urine pH 5.5 (5.0-8.5) Ur Specific [place] 1.025 (1.000-1.030) Urine Protein Negative (Negative) Urine Glucose (UA) Trace A (Negative) Assessment and Plan Assessment and plan (1) Cellulitis: Problem comment: Over his abdominal pannus and bilaterally in his legs with redness, edema, tenderness, warmth. Treat with his cefazolin. Status: Acute (2) Major depression: Problem comment: Continues to be suicidal. Mental health placement once he is medically stabilized Status: Acute (3) Attempted suicide: Problem comment: Attempted suicide by huffing dust off. Cardiac monitoring and vital sign monitoring tonight. Status: Acute (4) Frostbite: Problem comment: Munoz bit on fingertips with intact blisters and a ruptured blister on his abdomen which she all attributes to freezing from the dust off cans. Leave fingertips blisters intact. Routine wound care when they rupture Status: Acute (5) Diaper dermatitis: Problem comment: Nystatin Status: Acute (6) Rhabdomyolysis: Problem comment: From prolonged immobilization. Monitor CK and renal function. Status: Acute (7) Diabetes mellitus: Problem comment: Monitor Status: Acute (8) Alcoholic cirrhosis of liver: Problem comment: Continue outpatient treatment Status: Acute (9) Unable to care for self: Problem comment: Needs mental health placement. PT and OT to evaluate. Status: Acute (10) Weakness: Problem comment: PT and OT to evaluate. Status: Acute Plan Hospitalize for treatment of cellulitis with IV antibiotics, monitoring of toxicity from suicide attempt, management of other chronic medical problems. Anticipate mental health discharge when medically stable. Total time spent today is 80 minutes, 50 minutes in coordination of care and discussing with patient and other providers ongoing evaluation management of suicidality and cellulitis
[2022-09-17 15:52] LABS: Magnesium* 1.6 mg/dL (1.5-2.6)
--- NOTE | 2022-09-17 15:53 | REH.OT ---
OT order received, pt just transferred to CCU3 from ED and in midst of nursing admission and ultrasound. Will check status tomorrow am.
[2022-09-17 15:56] LABS: Hemoglobin A1C* 6.26 % (0-5.6)
[2022-09-17] MEDS: CEFAZOLIN 2 GM in 0.9 % SODIUM CHLORIDE Mini-bag 100 ML IVPB ×2 (16:06→23:58)
[2022-09-17] MEDS: THIAMINE 100 MG TABLET PO (16:06)
[2022-09-17] MEDS: FOLIC ACID 1 MG TABLET PO (16:14)
[2022-09-17 20:24] LABS: Troponin I* < 0.01 ng/mL (0.01-0.04)
--- NOTE | 2022-09-17 20:53 | W.PM.CROSSCO ---
Subjective Subjective Interval history: Patient's heart rate has remained stable, still sinus tachycardia, but lower than HR in the ED. No CP. Troponin has remained negative. Objective Objective Data Details: Patient laying comfortably in bed, sleeping Assessment and Plan Assessment and plan (1) Attempted suicide: Problem comment: Attempted suicide by huffing dust off. Cardiac monitoring and vital sign monitoring tonight. Status: Acute Plan - given risk of self harm by telemetry, nursing staff requested that we discontinue this intervention - called and reviewed case with poison control; given stable sinus tachycardia, negative troponin, reassuring clinical status, okay to discontinue telemetry
[2022-09-17] MEDS: QUETIAPINE 25 MG TABLET 50 MG PO (21:09)
[2022-09-17] MEDS: LITHIUM CARBONATE 150 MG CAPSULE 750 MG PO (21:09)
[2022-09-17] MEDS: ENOXAPARIN 40 MG/0.4 ML INJ SUBCUT (21:09)
[2022-09-17] MEDS: NYSTATIN CREAM 30 GM 1 APPLIC TOPICAL (21:09)
--- NOTE | 2022-09-17 22:52 | PC.NURSE ---
Shift [id number]- Patient arrives to unit this afternoon. He is somnolent throughout shift, but rousable. He is up with walker, gait belt and assist of 1-2. Large loose stool- continent. Lower bilateral extremities & under pannus reddened, swollen, hot and tender to touch. Left lower abdomen is particularly excoriated. Does not tolerate FORREST stockings. SCDs applied. Several distal fingertips are blistered. Bruise to bilateral sides of upper gluteal cleft, quarter sized sore below naval. He is tremulous this afternoon, which subsides with warm blanket and time. Bedside washup provided. His saturations are decreased while asleep- O2 at 1L via nasal cannula applied. Poor appetite.
[2022-09-18] VITALS (7 sets, daily range): BP systolic 116–136; BP diastolic 51–71; PULSE 99–110; RESP 18–20; TEMP 36.7–37.3; O2SAT 90–94
--- NOTE | 2022-09-18 05:39 | PC.NURSE ---
[id number]: Patient sleepy most of shift. Arouses to voice and responds appropriately. A1,walker,GB. Incontinent/continent. Bilateral legs edematous, hot, and erythemic. Denies pain.
[2022-09-18] MEDS: OMEPRAZOLE 20 MG CAPSULE DR 40 MG PO (06:46)
[2022-09-18 07:28] LABS: Lactate* 0.7 mmol/L (0.5-1.9)
[2022-09-18 07:35] LABS: Basophils Absolute Auto 0.03 K/uL (0.00-0.30); Basophils Percent Auto 0.6 % (0.0-3.0); Eosinophils Absolute Auto 0.07 K/uL (0.00-0.50); Eosinophils Percent Auto 1.4 % (0.0-7.0); Hematocrit 32.5 % (37.0-53.0); Hemoglobin* 10.2 gm/dL (13.5-17.5); Immature Granulocytes Abs Auto 0.01 K/uL (0.00-0.30); Immature Granulocytes Pct Auto 0.2 %; Lymphocytes Absolute Auto 1.28 K/uL (0.90-2.90); Lymphocytes Percent Auto 25.5 % (20-44); Mean Corpuscular HGB Conc 31 gm/dL (32-36); Mean Corpuscular Hemoglobin 26 pg (26-34); Mean Corpuscular Volume 83 fL (80-100); Monocytes Percent Auto 12.5 % (0.0-11.0); Neutrophils Percent Auto 59.8 % (42.0-72.0); Platelet Count* 119 K/uL (140-440); RDW Coefficient of Variation % 17.1 % (11.5-15.5); Red Blood Count 3.92 m/uL (4.30-5.90); White Blood Count* 5.02 K/uL (4.50-11.00)
[2022-09-18 07:46] LABS: Slide Review Reflex No
[2022-09-18 07:48] LABS: Albumin* 2.7 g/dL (3.3-5.0); Chloride* 103 mmol/L (96-114); Sodium* 134 mmol/L (135-149)
[2022-09-18 07:49] LABS: Potassium* 3.3 mmol/L (3.6-5.1)
[2022-09-18 07:51] LABS: Alkaline Phosphatase* 128 U/L (40-150); Aspartate Amino Transferase* 61 U/L (12-35); Bilirubin Direct* 0.5 mg/dL (0.0-0.5); Blood Urea Nitrogen* 5 mg/dL (5-24); Carbon Dioxide* 28 mmol/L (20-32); Creatinine* 0.4 mg/dL (0.5-1.5); Estimated Glomerular Filt Rate 134 ml/min; Total Protein* 5.5 g/dL (6.0-8.3)
[2022-09-18 07:52] LABS: Alanine Aminotransferase* 27 U/L (4-50); Calcium* 7.7 mg/dL (8.4-10.6); Creatine Kinase* 269 U/L (54-186); Glucose* 117 mg/dL (60-115)
[2022-09-18 08:10] LABS: Troponin I* < 0.01 ng/mL (0.01-0.04)
[2022-09-18] MEDS: buPROPion XL 150 MG TABLET 300 MG PO (08:55)
[2022-09-18] MEDS: QUETIAPINE 25 MG TABLET 50 MG PO ×2 (08:55→21:07)
[2022-09-18] MEDS: GLIMEPIRIDE 1 MG TABLET 2 MG PO (08:55)
[2022-09-18] MEDS: MULTIVITAMIN/MINERALS 1 TABLET 1 TAB PO (08:56)
[2022-09-18] MEDS: SPIRONOLACTONE 25 MG TABLET 50 MG PO (08:56)
[2022-09-18] MEDS: ESCITALOPRAM 10 MG TABLET 20 MG PO (08:56)
[2022-09-18] MEDS: FUROSEMIDE 20 MG TABLET PO (08:57)
[2022-09-18] MEDS: CEFAZOLIN 2 GM in 0.9 % SODIUM CHLORIDE Mini-bag 100 ML IVPB ×2 (08:57→16:52)
[2022-09-18] MEDS: FOLIC ACID 1 MG TABLET PO (08:57)
[2022-09-18] MEDS: SODIUM CHLORIDE 0.9 % (FLUSH) 10 ML SYRINGE 5 ML IVF ×2 (08:59→21:07)
[2022-09-18] MEDS: NYSTATIN CREAM 30 GM 1 APPLIC TOPICAL ×3 (08:59→21:07)
--- NOTE | 2022-09-18 10:13 | P.IMPN_ITS ---
Progress Note: A&P Assessment and plan (1) Attempted suicide: Problem details: Attempted suicide by huffing dust-off. Status: Acute Assessment and Plan: Overnight cardiac monitoring and troponins recommended by poison control. These remain unchanged. (2) Huffing: Status: Acute (3) Rhabdomyolysis: Problem details: From prolonged immobilization. CK improving, Cr unchanged. Stop IVF. Monitor CK and renal function. Status: Acute (4) Frostbite: Problem details: Munoz bit on fingertips with intact blisters and a ruptured blister on his abdomen which he attributes to freezing from the dust-off cans. Leave fingertips blisters intact. Routine wound care when they rupture Status: Acute (5) Cellulitis: Problem details: Over his abdominal pannus and bilaterally in his legs with redness, edema, tenderness, warmth. Treat with his cefazolin. Status: Acute (6) Diaper dermatitis: Problem details: Nystatin Status: Acute (7) Diabetes mellitus: Problem details: Monitor Status: Acute Assessment and Plan: Remains within inpatient goal of 140-180. (8) Major depression: Problem details: Continues to be suicidal. Mental health placement once he is medically stabilized Status: Acute Assessment and Plan: Awake today. Obtain DEC assessment. (9) Alcoholic cirrhosis of liver: Problem details: Continue outpatient treatment Status: Acute (10) Morbid obesity with BMI of 40.0-44.9, adult: Status: Acute (11) Unable to care for self: Problem details: Needs mental health placement. PT and OT to evaluate. Status: Acute (12) Weakness: Problem details: PT and OT to evaluate. Status: Acute (13) Hypokalemia: Status: Acute Assessment and Plan: Magnesium checked yesteray. Replace K orally and slowly due to currently being on spironolactone and having elevated CK, recheck in am. Plan This is a 47-year-old male who attempted suicide by huffing dust-off. I have reviewed his H&P, labs, imaging, and medications. He has completed the overnight monitoring suggested by poison Control with improvement of sinus tachycardia and serial troponins that are unremarkable. This morning his mental status has improved and he is awake and alert and oriented x3. He has blisters from frostbite, cellulitis and dermatitis. These appear to be stable and cellulitis appears to be improving on IV antibiotics. His CK level is coming down in creatinine remains stable, so he does not need fluids at this time. I will obtain a deck assessment today for mental health and it is likely that he will be medically stable for discharge by tomorrow or Tuesday. Time Spent With Patient Total time spent: Today I spent 40 minutes rounding on the patient. Greater than 50% included discussing frostbite, mental health, and cellulitis with the patient, discussing care with the team, reviewing data, updating and managing the care plan. Subjective Time Seen by Provider: 10:13 Date Seen: 09/18/22 Interval history: Eagle complains of feeling awful. He has some pain in his fingers where there are blisters. He also has anxiety about what is going to happen next because he did not think he was going to be here. Exam Narrative: Exam Narrative: General: No acute distress. Awake, alert, oriented x3. No pallor. No jaundice. Oropharynx: Clear. Mucous membranes moist. Cardiovascular: Mildly tachycardic, regular. No murmurs, gallops, or rubs. Respiratory: Clear to auscultation bilaterally. No wheezes or crackles. Abdomen: Bowel sounds present. Soft, nondistended, nontender. Superficial ulcer present on lower abdomen a small amount of dried blood on the diaper. No purulence drainage. Rash in groin with papules over upper medial thighs appears slightly improved from was described in H&P yesterday. Extremities: Blisters on finger pads are not ruptured or erythematous. Calves remain tender to touch however are not very warm today and there is very little erythema on the left lower extremity. Right lower extremity remains erythematous. Const: Vital Signs, click to edit/add: Vital Signs - 24 hr 09/17/22 11:10 09/17/22 11:25 09/17/22 11:27 Temperature 98.3 F Pulse Rate 114 H Pulse Rate [Right Pulse Oximeter] 115 H Pulse Rate [Right Radial] Respiratory Rate 18 Blood Pressure Blood Pressure [Ri ght Arm] Blood Pressure [Ri ght Upper Arm] 140/61 H Pulse Oximetry 97 96 95 Oxygen Delivery Me thod Room Air Oxygen Flow Rate 09/17/22 11:30 09/17/22 11:31 09/17/22 11:32 Temperature Pulse Rate 114 H 116 H 116 H Pulse Rate [Right Pulse Oximeter] Pulse Rate [Right Radial] Respiratory Rate Blood Pressure 122/51 L Blood Pressure [Ri ght Arm] Blood Pressure [Ri ght Upper Arm] Pulse Oximetry 95 97 96 Oxygen Delivery Me thod Oxygen Flow Rate 09/17/22 12:51 09/17/22 12:52 09/17/22 12:53 Temperature Pulse Rate 114 H 115 H 116 H Pulse Rate [Right Pulse Oximeter] Pulse Rate [Right Radial] Respiratory Rate Blood Pressure 132/63 Blood Pressure [Ri ght Arm] Blood Pressure [Ri ght Upper Arm] Pulse Oximetry 96 96 96 Oxygen Delivery Me thod Oxygen Flow Rate 09/17/22 13:00 09/17/22 13:01 09/17/22 13:02 Temperature Pulse Rate 115 H 117 H 116 H Pulse Rate [Right Pulse Oximeter] Pulse Rate [Right Radial] Respiratory Rate Blood Pressure 127/61 Blood Pressure [Ri ght Arm] Blood Pressure [Ri ght Upper Arm] Pulse Oximetry 95 94 93 Oxygen Delivery Me thod Oxygen Flow Rate 09/17/22 13:30 09/17/22 13:31 09/17/22 14:00 Temperature Pulse Rate 117 H 116 H 121 H Pulse Rate [Right Pulse Oximeter] Pulse Rate [Right Radial] Respiratory Rate Blood Pressure 125/62 Blood Pressure [Ri ght Arm] Blood Pressure [Ri ght Upper Arm] Pulse Oximetry 94 94 90 Oxygen Delivery Me thod Oxygen Flow Rate 09/17/22 14:02 09/17/22 14:30 09/17/22 14:31 Temperature Pulse Rate 119 H 117 H 119 H Pulse Rate [Right Pulse Oximeter] Pulse Rate [Right Radial] Respiratory Rate Blood Pressure 118/58 L 124/54 L Blood Pressure [Ri ght Arm] Blood Pressure [Ri ght Upper Arm] Pulse Oximetry 91 92 92 Oxygen Delivery Me thod Oxygen Flow Rate 09/17/22 14:32 09/17/22 15:00 09/17/22 15:01 Temperature Pulse Rate 117 H 118 H 122 H Pulse Rate [Right Pulse Oximeter] Pulse Rate [Right Radial] Respiratory Rate Blood Pressure 116/59 L Blood Pressure [Ri ght Arm] Blood Pressure [Ri ght Upper Arm] Pulse Oximetry 95 91 93 Oxygen Delivery Me thod Oxygen Flow Rate 09/17/22 15:36 09/17/22 16:20 09/17/22 16:21 Temperature 98.5 F 98.5 F Pulse Rate Pulse Rate [Right Pulse Oximeter] Pulse Rate [Right Radial] 113 H 106 H Respiratory Rate 18 18 Blood Pressure Blood Pressure [Ri ght Arm] 105/58 L 105/58 L Blood Pressure [Ri ght Upper Arm] Pulse Oximetry 94 95 94 Oxygen Delivery Me thod Room Air Room Air Oxygen Flow Rate 09/17/22 16:23 09/17/22 16:33 09/17/22 16:32 Temperature Pulse Rate 107 H Pulse Rate [Right Pulse Oximeter] Pulse Rate [Right Radial] Respiratory Rate Blood Pressure Blood Pressure [Ri ght Arm] Blood Pressure [Ri ght Upper Arm] Pulse Oximetry 94 92 Oxygen Delivery Me thod Room Air Room Air Oxygen Flow Rate 09/17/22 19:07 09/17/22 23:00 09/17/22 23:00 Temperature 98.7 F 98.6 F Pulse Rate Pulse Rate [Right Pulse Oximeter] Pulse Rate [Right Radial] 108 H 112 H Respiratory Rate 20 20 Blood Pressure Blood Pressure [Ri ght Arm] 121/64 119/61 Blood Pressure [Ri ght Upper Arm] Pulse Oximetry 92 92 91 Oxygen Delivery Me thod Room Air Nasal Cannula Oxygen Flow Rate 0.5 09/17/22 23:00 09/17/22 23:00 09/18/22 03:00 Temperature 99.0 F Pulse Rate Pulse Rate [Right Pulse Oximeter] Pulse Rate [Right Radial] 112 H 106 H Respiratory Rate 20 20 Blood Pressure Blood Pressure [Ri ght Arm] 120/65 Blood Pressure [Ri ght Upper Arm] Pulse Oximetry 91 90 Oxygen Delivery Me thod Nasal Cannula Nasal Cannula Oxygen Flow Rate 0.5 0.5 Documenting provider has reviewed patient's vital signs: yes Labs Labs: Laboratory Results - last 24 hr 09/17/22 09/17/22 09/17/22 11:05 11:35 11:35 WBC 8.45 RBC 4.31 Hgb 11.3 L Hct 35.2 L MCV 82 MCH 26 MCHC 32 RDW Coeff of Caridad 16.7 H Plt Count 180 Neut % (Auto) 76.6 H Lymph % (Auto) 14.4 L [place] % (Auto) 7.8 Eos % (Auto) 0.2 Baso % (Auto) 0.4 Neut # (Auto) 6.50 Lymph # (Auto) 1.20 [place] # (Auto) 0.70 Eos # (Auto) 0.02 Baso # (Auto) 0.03 Abs Immat Gran (auto) 0.05 Imm/Tot Granulo (auto) 0.6 ESR INR Sodium Potassium Chloride Carbon Dioxide BUN Creatinine Estimated Creat Clear Estimated GFR Glucose Hemoglobin A1c Lactate Calcium Magnesium Total Bilirubin Direct Bilirubin AST ALT Alkaline Phosphatase Ammonia 24.0 Total Creatine Kinase Troponin I C-Reactive Protein NT-Pro-B Natriuret Pep Total Protein Albumin Lipase Urine Color Urine Appearance Urine pH Ur Specific [place] Urine Protein Urine Glucose (UA) Urine Ketones Urine Blood Urine Nitrite Urine Bilirubin Urine Urobilinogen Ur Leukocyte Esterase Urine RBC Urine WBC Ur Squamous Epith Cells Urine Bacteria Salicylates Urine Opiates Screen Ur Oxycodone Screen Urine Methadone Screen Ur Propoxyphene Screen Acetaminophen Ur Barbiturates Screen U Tricyclic Antidepress Ur Phencyclidine Scrn Ur Amphetamines Screen U Methamphetamines Scrn U Benzodiazepines Scrn Urine Cocaine Screen U Marijuana (THC) Screen Ur Drug Screen Comment Ethyl Alcohol SARS-CoV-2 (PCR) Negative SARS-CoV-2 Influenza Type A (PCR) Negative PCR FLU A Influenza Type B (PCR) Negative PCR FLU B RSV (PCR) Negative PCR RSV 09/17/22 09/17/22 09/17/22 11:35 11:35 11:35 WBC RBC Hgb Hct MCV MCH MCHC RDW Coeff of [place] Plt Count Neut % (Auto) Lymph % (Auto) [place] % (Auto) Eos % (Auto) Baso % (Auto) Neut # (Auto) Lymph # (Auto) [place] # (Auto) Eos # (Auto) Baso # (Auto) Abs Immat Gran (auto) Imm/Tot Granulo (auto) ESR 8 INR 1.48 H Sodium 135 Potassium 3.9 Chloride 102 Carbon Dioxide 24 BUN 11 Creatinine 0.4 L Estimated Creat Clear 230.66 Estimated GFR 134 Glucose 192 H Hemoglobin A1c Lactate Calcium 8.3 L Magnesium 1.6 Total Bilirubin 4.1 H Direct Bilirubin 1.0 H AST 71 H ALT 31 Alkaline Phosphatase 161 H Ammonia Total Creatine Kinase Troponin I < 0.01 L C-Reactive Protein 2.1 H NT-Pro-B Natriuret Pep 87 Total Protein 6.5 Albumin 3.2 L Lipase 101 Urine Color Urine Appearance Urine pH Ur Specific [place] Urine Protein Urine Glucose (UA) Urine Ketones Urine Blood Urine Nitrite Urine Bilirubin Urine Urobilinogen Ur Leukocyte Esterase Urine RBC Urine WBC Ur Squamous Epith Cells Urine Bacteria Salicylates < 1.0 L Urine Opiates Screen Ur Oxycodone Screen Urine Methadone Screen Ur Propoxyphene Screen Acetaminophen < 10.0 L Ur Barbiturates Screen U Tricyclic Antidepress Ur Phencyclidine Scrn Ur Amphetamines Screen U Methamphetamines Scrn U Benzodiazepines Scrn Urine Cocaine Screen U Marijuana (THC) Screen Ur Drug Screen Comment Ethyl Alcohol < 0.01 L SARS-CoV-2 (PCR) Influenza Type A (PCR) Influenza Type B (PCR) RSV (PCR) 09/17/22 09/17/22 09/17/22 11:35 11:35 13:33 WBC RBC Hgb Hct MCV MCH MCHC RDW Coeff of [place]idad Plt Count Neut % (Auto) Lymph % (Auto) [place] % (Auto) Eos % (Auto) Baso % (Auto) Neut # (Auto) Lymph # (Auto) [place] # (Auto) Eos # (Auto) Baso # (Auto) Abs Immat Gran (auto) Imm/Tot Granulo (auto) ESR INR Sodium Potassium Chloride Carbon Dioxide BUN Creatinine Estimated Creat Clear Estimated GFR Glucose Hemoglobin A1c 6.26 H Lactate 4.7 H* 2.2 H Calcium Magnesium Total Bilirubin Direct Bilirubin AST ALT Alkaline Phosphatase Ammonia Total Creatine Kinase Troponin I C-Reactive Protein NT-Pro-B Natriuret Pep Total Protein Albumin Lipase Urine Color Urine Appearance Urine pH Ur Specific [place] Urine Protein Urine Glucose (UA) Urine Ketones Urine Blood Urine Nitrite Urine Bilirubin Urine Urobilinogen Ur Leukocyte Esterase Urine RBC Urine WBC Ur Squamous Epith Cells Urine Bacteria Salicylates Urine Opiates Screen Ur Oxycodone Screen Urine Methadone Screen Ur Propoxyphene Screen Acetaminophen Ur Barbiturates Screen U Tricyclic Antidepress Ur Phencyclidine Scrn Ur Amphetamines Screen U Methamphetamines Scrn U Benzodiazepines Scrn Urine Cocaine Screen U Marijuana (THC) Screen Ur Drug Screen Comment Ethyl Alcohol SARS-CoV-2 (PCR) Influenza Type A (PCR) Influenza Type B (PCR) RSV (PCR) 09/17/22 09/17/22 09/17/22 13:33 13:45 13:45 WBC RBC Hgb Hct MCV MCH MCHC RDW Coeff of Caridad Plt Count Neut % (Auto) Lymph % (Auto) [place] % (Auto) Eos % (Auto) Baso % (Auto) Neut # (Auto) Lymph # (Auto) [place] # (Auto) Eos # (Auto) Baso # (Auto) Abs Immat Gran (auto) Imm/Tot Granulo (auto) ESR INR Sodium Potassium Chloride Carbon Dioxide BUN Creatinine Estimated Creat Clear Estimated GFR Glucose Hemoglobin A1c Lactate Calcium Magnesium Total Bilirubin Direct Bilirubin AST ALT Alkaline Phosphatase Ammonia Total Creatine Kinase 634 H Troponin I C-Reactive Protein NT-Pro-B Natriuret Pep Total Protein Albumin Lipase Urine Color Brown A Urine Appearance Clear Urine pH 5.5 Ur Specific [place] 1.025 Urine Protein Negative Urine Glucose (UA) Trace A Urine Ketones 1+ A Urine Blood Negative Urine Nitrite Negative Urine Bilirubin 1+ A Urine Urobilinogen >=8.0 Ur Leukocyte Esterase Negative Urine RBC 0-2 Urine WBC 0-2 Ur Squamous Epith Cells None Urine Bacteria None Salicylates Urine Opiates Screen Negative Ur Oxycodone Screen Negative Urine Methadone Screen Negative Ur Propoxyphene Screen Negative Acetaminophen Ur Barbiturates Screen Negative U Tricyclic Antidepress Negative Ur Phencyclidine Scrn Negative Ur Amphetamines Screen Negative U Methamphetamines Scrn Negative U Benzodiazepines Scrn Negative Urine Cocaine Screen Negative U Marijuana (THC) Screen Negative Ur Drug Screen Comment See Note Ethyl Alcohol SARS-CoV-2 (PCR) Influenza Type A (PCR) Influenza Type B (PCR) RSV (PCR) 09/17/22 09/18/22 09/18/22 19:46 07:03 07:03 WBC 5.02 RBC 3.92 L Hgb 10.2 L Hct 32.5 L MCV 83 MCH 26 MCHC 31 L RDW Coeff of Caridad 17.1 H Plt Count 119 L Neut % (Auto) 59.8 Lymph % (Auto) 25.5 [place] % (Auto) 12.5 H Eos % (Auto) 1.4 Baso % (Auto) 0.6 Neut # (Auto) 3.00 Lymph # (Auto) 1.28 [place] # (Auto) 0.60 Eos # (Auto) 0.07 Baso # (Auto) 0.03 Abs Immat Gran (auto) 0.01 Imm/Tot Granulo (auto) 0.2 ESR INR Sodium 134 L Potassium 3.3 L Chloride 103 Carbon Dioxide 28 BUN 5 Creatinine 0.4 L Estimated Creat Clear 401.72 Estimated GFR 134 Glucose 117 H Hemoglobin A1c Lactate Calcium 7.7 L Magnesium Total Bilirubin 2.0 H Direct Bilirubin 0.5 AST 61 H ALT 27 Alkaline Phosphatase 128 Ammonia Total Creatine Kinase 269 H Troponin I < 0.01 L < 0.01 L C-Reactive Protein 2.0 H NT-Pro-B Natriuret Pep Total Protein 5.5 L Albumin 2.7 L Lipase Urine Color Urine Appearance Urine pH Ur Specific [place] Urine Protein Urine Glucose (UA) Urine Ketones Urine Blood Urine Nitrite Urine Bilirubin Urine Urobilinogen Ur Leukocyte Esterase Urine RBC Urine WBC Ur Squamous Epith Cells Urine Bacteria Salicylates Urine Opiates Screen Ur Oxycodone Screen Urine Methadone Screen Ur Propoxyphene Screen Acetaminophen Ur Barbiturates Screen U Tricyclic Antidepress Ur Phencyclidine Scrn Ur Amphetamines Screen U Methamphetamines Scrn U Benzodiazepines Scrn Urine Cocaine Screen U Marijuana (THC) Screen Ur Drug Screen Comment Ethyl Alcohol SARS-CoV-2 (PCR) Influenza Type A (PCR) Influenza Type B (PCR) RSV (PCR) 09/18/22 07:03 WBC RBC Hgb Hct MCV MCH MCHC RDW Coeff of Caridad Plt Count Neut % (Auto) Lymph % (Auto) [place] % (Auto) Eos % (Auto) Baso % (Auto) Neut # (Auto) Lymph # (Auto) [place] # (Auto) Eos # (Auto) Baso # (Auto) Abs Immat Gran (auto) Imm/Tot Granulo (auto) ESR INR Sodium Potassium Chloride Carbon Dioxide BUN Creatinine Estimated Creat Clear Estimated GFR Glucose Hemoglobin A1c Lactate 0.7 Calcium Magnesium Total Bilirubin Direct Bilirubin AST ALT Alkaline Phosphatase Ammonia Total Creatine Kinase Troponin I C-Reactive Protein NT-Pro-B Natriuret Pep Total Protein Albumin Lipase Urine Color Urine Appearance Urine pH Ur Specific [place] Urine Protein Urine Glucose (UA) Urine Ketones Urine Blood Urine Nitrite Urine Bilirubin Urine Urobilinogen Ur Leukocyte Esterase Urine RBC Urine WBC Ur Squamous Epith Cells Urine Bacteria Salicylates Urine Opiates Screen Ur Oxycodone Screen Urine Methadone Screen Ur Propoxyphene Screen Acetaminophen Ur Barbiturates Screen U Tricyclic Antidepress Ur Phencyclidine Scrn Ur Amphetamines Screen U Methamphetamines Scrn U Benzodiazepines Scrn Urine Cocaine Screen U Marijuana (THC) Screen Ur Drug Screen Comment Ethyl Alcohol SARS-CoV-2 (PCR) Influenza Type A (PCR) Influenza Type B (PCR) RSV (PCR)
[2022-09-18] MEDS: THIAMINE 100 MG TABLET PO (16:52)
--- NOTE | 2022-09-18 17:37 | PC.NURSE ---
Patient cooperative with cares this shift. Demonstrates a flat affect. Pt able to participate in DEC assessment today. Continues to get antibiotics via IV without complication. Pt took shower this shift. Skin cleaned and dried thoroughly. Moisturizer applied to areas of cellulitis. Blisters to hands are currently still intact and open to air. Pt using oxygen on and off throughout the day due to sleep apnea. Oxygen saturations dropped into the 70's with deep sleep.
[2022-09-18] MEDS: LITHIUM CARBONATE 150 MG CAPSULE 750 MG PO (21:07)
[2022-09-18] MEDS: ENOXAPARIN 40 MG/0.4 ML INJ SUBCUT (21:07)
[2022-09-18] MEDS: hydrOXYzine pamoate 25 MG CAPSULE 50 MG PO (21:23)
[2022-09-19] VITALS (8 sets, daily range): BP systolic 112–132; BP diastolic 61–75; PULSE 91–95; RESP 16–18; TEMP 36.7–37; O2SAT 91–95
[2022-09-19] MEDS: CEFAZOLIN 2 GM in 0.9 % SODIUM CHLORIDE Mini-bag 100 ML IVPB ×4 (00:31→23:18)
[2022-09-19] MEDS: 0.9 % SODIUM CHLORIDE 250 ml IV (00:31)
[2022-09-19] MEDS: hydrOXYzine pamoate 25 MG CAPSULE 50 MG PO ×3 (01:13→21:45)
[2022-09-19] MEDS: LORazepam 1 MG TABLET PO (02:21)
--- NOTE | 2022-09-19 06:21 | PC.NURSE ---
[id number]: Patient cooperative with cares. Depressed and flat affect. Delayed speech. Patient a 1:1 on suicide precautions. Bilateral lower leg cellulitis warm to the touch. Patient popped blisters on R. hand during shift. Bandaids applied. Afebrile. A1,walker, GB. C/o anxiety requested PRN Ativan x1.
[2022-09-19] MEDS: OMEPRAZOLE 20 MG CAPSULE DR 40 MG PO (06:49)
[2022-09-19 07:11] LABS: Basophils Percent Auto 0.4 % (0.0-3.0); Eosinophils Percent Auto 2.9 % (0.0-7.0); Hematocrit 32.1 % (37.0-53.0); Hemoglobin* 10.1 gm/dL (13.5-17.5); Lymphocytes Percent Auto 40.5 % (20-44); Mean Corpuscular HGB Conc 32 gm/dL (32-36); Mean Corpuscular Hemoglobin 27 pg (26-34); Mean Corpuscular Volume 84 fL (80-100); Monocytes Percent Auto 8.7 % (0.0-11.0); Neutrophils Percent Auto 47.5 % (42.0-72.0); Platelet Count* 98 K/uL (140-440); RDW Coefficient of Variation % 17.4 % (11.5-15.5); Red Blood Count 3.81 m/uL (4.30-5.90); White Blood Count* 2.42 K/uL (4.50-11.00)
[2022-09-19 07:25] LABS: Chloride* 105 mmol/L (96-114)
[2022-09-19 07:26] LABS: Potassium* 3.4 mmol/L (3.6-5.1); Sodium* 138 mmol/L (135-149)
[2022-09-19 07:29] LABS: Blood Urea Nitrogen* 5 mg/dL (5-24); Calcium* 8.1 mg/dL (8.4-10.6); Carbon Dioxide* 32 mmol/L (20-32); Creatine Kinase* 108 U/L (54-186); Creatinine* 0.4 mg/dL (0.5-1.5); Estimated Glomerular Filt Rate 134 ml/min; Glucose* 85 mg/dL (60-115)
[2022-09-19 07:42] LABS: Slide Review Reflex No
[2022-09-19 07:44] LABS: INR 1.41 (0.91-1.10); Prothrombin Time 18.1 Seconds
[2022-09-19] MEDS: FOLIC ACID 1 MG TABLET PO (08:36)
[2022-09-19] MEDS: buPROPion XL 150 MG TABLET 300 MG PO (08:36)
[2022-09-19] MEDS: GLIMEPIRIDE 1 MG TABLET 2 MG PO (08:36)
[2022-09-19] MEDS: FUROSEMIDE 20 MG TABLET PO (08:36)
[2022-09-19] MEDS: SPIRONOLACTONE 25 MG TABLET 50 MG PO (08:36)
[2022-09-19] MEDS: MULTIVITAMIN/MINERALS 1 TABLET 1 TAB PO (08:36)
[2022-09-19] MEDS: ESCITALOPRAM 10 MG TABLET 20 MG PO (08:37)
[2022-09-19] MEDS: SODIUM CHLORIDE 0.9 % (FLUSH) 10 ML SYRINGE 5 ML IVF ×2 (08:37→21:44)
[2022-09-19] MEDS: NYSTATIN CREAM 30 GM 1 APPLIC TOPICAL ×3 (08:37→21:45)
[2022-09-19] MEDS: QUETIAPINE 25 MG TABLET 50 MG PO ×2 (08:41→21:45)
--- NOTE | 2022-09-19 12:45 | PM.IMPN1 ---
Progress Note: A&P Assessment and plan (1) Attempted suicide: Problem details: Attempted suicide by huffing dust-off. Status: Acute Assessment and Plan: Overnight cardiac monitoring and troponins recommended by poison control, which has completed. Patient is no longer tachycardic. (2) Huffing: Status: Acute (3) Rhabdomyolysis: Problem details: From prolonged immobilization. CK within normal limits today, Cr unchanged. Status: Resolved (4) Frostbite: Problem details: Munoz bit on fingertips with some intact and some ruptured blisters and a ruptured blister on his abdomen which he attributes to freezing from the dust-off cans. Leave fingertips blisters intact. Continue routine wound care for those that have ruptured. Status: Acute (5) Cellulitis: Problem details: Over his abdominal pannus and bilaterally in his legs. Improving continue cefazolin. Status: Acute (6) Diaper dermatitis: Problem details: Nystatin Status: Acute (7) Diabetes mellitus: Problem details: Monitor Status: Acute Assessment and Plan: Blood glucoses are within goal. Continue current regimen. (8) Major depression: Problem details: Continues to be suicidal. Mental health placement once he is medically stabilized Status: Acute (9) Alcoholic cirrhosis of liver: Problem details: Continue outpatient treatment Status: Acute (10) Morbid obesity with BMI of 40.0-44.9, adult: Status: Acute (11) Unable to care for self: Problem details: Needs mental health placement. PT and OT to evaluate. Status: Acute (12) Weakness: Problem details: PT and OT to evaluate. Status: Acute (13) Hypokalemia: Status: Acute Assessment and Plan: Magnesium checked on admission and was within normal limits. Continue to replace K orally and slowly due to currently being on spironolactone, recheck in am. Plan This is a 47-year-old male who attempted suicide by huffing dust-off. He has completed the overnight monitoring suggested by poison Control with resolution of sinus tachycardia and serial troponins that are unremarkable. Mental status has improved from admission. He has blisters from frostbite, cellulitis and dermatitis. These appear to be stable and cellulitis appears to be improving on IV antibiotics. His CK level has normalized and creatinine remains stable. White blood count and platelets have trended downward. I suspect this is due to his overall poor health and history of alcoholic liver disease. Recheck in the morning. Once these stabilize, if he remains otherwise medically stable he can have a repeat check assessment and transfer to a inpatient mental health facility for further care. Time Spent With Patient Total time spent: Today I spent 35 minutes rounding on the patient. Greater than 50% included discussing frostbite, mental health, and cellulitis with the patient, discussing care with the team, reviewing data, updating and managing the care plan. Subjective Time Seen by Provider: 08:41 Date Seen: 09/19/22 Interval history: Eagle is asking for lorazepam this morning for anxiety. He said with all this going on, it would not kill him to add lorazepam. I noted that he had hydroxyzine available for anxiety and recommended that he try that instead. He was agreeable. He said he was feeling the same as yesterday. He had no other complaints. He popped several of the blisters on his fingers yesterday. Exam Narrative: Exam Narrative: General: No acute distress. Awake, alert, oriented x3. No pallor. No jaundice. Depressed affect. Cardiovascular: Mildly tachycardic, regular. No murmurs, gallops, or rubs. Respiratory: Clear to auscultation bilaterally. No wheezes or crackles. Abdomen: Bowel sounds present. Soft, nondistended, nontender. Mepilex bandage covering wound inferior to umbilicus. Bandage is clean, dry, and intact. Rash in groin with papules over upper medial thighs appears less erythematous. Extremities: Blisters on finger pads are covered with Band-Aids. These are clean, dry, and intact. Calves are less tender to touch and less erythematous than yesterday. Const: Vital Signs, click to edit/add: Vital Signs - 24 hr 09/18/22 15:00 09/18/22 15:00 09/18/22 15:00 Temperature 98.6 F Pulse Rate [Right Radial] 110 H Respiratory Rate 18 18 Blood Pressure [Ri ght Arm] 119/61 Pulse Oximetry 92 92 92 Oxygen Delivery Me thod Room Air Room Air Oxygen Flow Rate 09/18/22 19:00 09/18/22 22:56 09/18/22 23:00 Temperature 98.1 F Pulse Rate [Right Radial] 99 Respiratory Rate 20 18 Blood Pressure [Ri ght Arm] 136/71 Pulse Oximetry 93 94 94 Oxygen Delivery Me thod Room Air Nasal Cannula Oxygen Flow Rate 0.5 0.5 09/18/22 23:00 09/19/22 03:00 09/19/22 07:00 Temperature 99.2 F 98.6 F Pulse Rate [Right Radial] 104 H 95 94 Respiratory Rate 20 16 18 Blood Pressure [Ri t Arm] 116/56 L 125/75 Pulse Oximetry 93 91 94 Oxygen Delivery Me thod Nasal Cannula Nasal Cannula Room Air Oxygen Flow Rate 0.5 1.0 09/19/22 07:00 09/19/22 07:00 Temperature Pulse Rate [Right Radial] Respiratory Rate [facility] Pulse Oximetry 93 92 Oxygen Delivery Me thod Room Air Oxygen Flow Rate Documenting provider has reviewed patient's vital signs: yes Labs Labs: Laboratory Results - last 24 hr 09/19/22 09/19/22 09/19/22 06:44 06:44 06:44 WBC 2.42 L RBC 3.81 L Hgb 10.1 L Hct 32.1 L MCV 84 MCH 27 MCHC 32 RDW Coeff of Caridad 17.4 H Plt Count 98 L Neut % (Auto) 47.5 Lymph % (Auto) 40.5 [place] % (Auto) 8.7 Eos % (Auto) 2.9 Baso % (Auto) 0.4 Neut # (Auto) 1.10 L Lymph # (Auto) 1.00 [place] # (Auto) 0.20 Eos # (Auto) 0.10 Baso # (Auto) 0.00 Abs Immat Gran (auto) 0.00 Imm/Tot Granulo (auto) 0.0 INR 1.41 H Sodium 138 Potassium 3.4 L Chloride 105 Carbon Dioxide 32 BUN 5 Creatinine 0.4 L Estimated Creat Clear 401.72 Estimated GFR 134 Glucose 85 Calcium 8.1 L Total Creatine Kinase 108
[2022-09-19] MEDS: THIAMINE 100 MG TABLET PO (15:38)
[2022-09-19] MEDS: POTASSIUM BICARB 25 MEQ EFFERVESCENT TAB PO ×2 (15:39→17:22)
[2022-09-19 15:53] LABS: Lithium, Serum or Plasma <0.2 mmol/L (0.5-1.2)
--- NOTE | 2022-09-19 17:37 | PC.NURSE ---
Patient is flat with reduced interactions however is pleasant and cooperative with staff. Up to the chair/BR with standby assist and the walker. gave okay for patient to have his cell phone in the room. Cell phone was grabbed from patient belongings bag and resealed with wallet inside. Patient had aunt and cousin visit this evening. They appeared supportive and willing to help patient get clothes and whatever he may need from his apartment. Discussion was had with patient about options beyond treatment. Patient expresses an interest in having a liner worker/day program or something to help him function and not fall into this same pattern that happened a month ago.
[2022-09-19] MEDS: ENOXAPARIN 40 MG/0.4 ML INJ SUBCUT (21:44)
[2022-09-19] MEDS: LITHIUM CARBONATE 150 MG CAPSULE 750 MG PO (21:45)
[2022-09-19] MEDS: LORazepam 0.5 MG TABLET PO (23:34)
[2022-09-20] VITALS (7 sets, daily range): BP systolic 109–146; BP diastolic 62–78; PULSE 87–98; RESP 18; TEMP 36.6–36.9; O2SAT 84–94
--- NOTE | 2022-09-20 03:51 | PC.NURSE ---
Pt rested well this night. Cooperative. LEs remain red and warm to touch. VS unremarkable.
[2022-09-20 05:50] LABS: Eosinophils Percent Auto 2.9 % (0.0-7.0); Lymphocytes Percent Auto 37.8 % (20-44); Mean Corpuscular HGB Conc 31 gm/dL (32-36); Mean Corpuscular Hemoglobin 27 pg (26-34); Mean Corpuscular Volume 85 fL (80-100); Monocytes Percent Auto 8.4 % (0.0-11.0); Neutrophils Percent Auto 50.9 % (42.0-72.0); Platelet Count* 85 K/uL (140-440); RDW Coefficient of Variation % 17.5 % (11.5-15.5); Red Blood Count 3.76 m/uL (4.30-5.90); White Blood Count* 2.38 K/uL (4.50-11.00)
[2022-09-20 05:55] LABS: Slide Review Reflex No
[2022-09-20 06:04] LABS: Chloride* 104 mmol/L (96-114); Sodium* 136 mmol/L (135-149)
[2022-09-20 06:07] LABS: Blood Urea Nitrogen* 6 mg/dL (5-24); Calcium* 8.4 mg/dL (8.4-10.6); Carbon Dioxide* 34 mmol/L (20-32); Creatinine* 0.4 mg/dL (0.5-1.5); Estimated Glomerular Filt Rate 134 ml/min; Glucose* 78 mg/dL (60-115)
[2022-09-20] MEDS: GLIMEPIRIDE 1 MG TABLET 2 MG PO (08:45)
[2022-09-20] MEDS: FUROSEMIDE 20 MG TABLET PO (08:45)
[2022-09-20] MEDS: FOLIC ACID 1 MG TABLET PO (08:46)
[2022-09-20] MEDS: SPIRONOLACTONE 25 MG TABLET 50 MG PO (08:46)
[2022-09-20] MEDS: ESCITALOPRAM 10 MG TABLET 20 MG PO (08:46)
[2022-09-20] MEDS: hydrOXYzine pamoate 25 MG CAPSULE 50 MG PO ×2 (08:46→23:53)
[2022-09-20] MEDS: buPROPion XL 150 MG TABLET 300 MG PO (08:46)
[2022-09-20] MEDS: CEFAZOLIN 2 GM in 0.9 % SODIUM CHLORIDE Mini-bag 100 ML IVPB ×2 (08:46→15:57)
[2022-09-20] MEDS: MULTIVITAMIN/MINERALS 1 TABLET 1 TAB PO (08:46)
[2022-09-20] MEDS: OMEPRAZOLE 20 MG CAPSULE DR 40 MG PO (08:47)
[2022-09-20] MEDS: SODIUM CHLORIDE 0.9 % (FLUSH) 10 ML SYRINGE 5 ML IVF ×2 (08:47→20:42)
--- NOTE | 2022-09-20 08:54 | CRLHL7_ITS ---
For Patients: As a result of the Century Cures Act, medical imaging exams and procedure reports are released immediately into your electronic medical record. You may view this report before your referring provider. If you have questions, please contact your health care provider. INDICATION: Hypoxia and tachycardia. COMPARISON: None TECHNIQUE: : CT examination of the chest was performed with the uneventful intravenous administration of 95 cc of Isovue 3 7 while thin axial sections were obtained from above the apices of the lungs to the lung bases. Please note that all CT scans at this facility use dose modulation, iterative reconstruction, and/or weight-based dosing when appropriate to reduce radiation dose to as low as reasonably achievable. FINDINGS: : HEART and MEDIASTINUM: The heart size is normal. There is no mediastinal or hilar adenopathy or mass. There is no pericardial effusion. PULMONARY ARTERIAL CIRCULATION: There is some limitations due to motion but there is no indication of acute pulmonary embolus. Smaller peripheral emboli M would likely be inapparent on this study LUNGS: Linear opacities primarily basilar probably due to atelectasis. PLEURAL SPACES: There is no pleural effusion, pneumothorax or pleural based mass. VISUALIZED UPPER ABDOMEN: Significant ascites. Splenomegaly. OSSEOUS STRUCTURES: Age-appropriate appearance. No acute fracture or destructive process.Prominent bilateral gynecomastia TUBES and LINES: None. IMPRESSION: 1. Somewhat limited by motion but no indication of acute pulmonary embolus. 2. Linear opacities primarily at the lung bases likely due to subsegmental atelectasis. 3. Significant ascites. Splenomegaly. 4. Prominent bilateral gynecomastia. Please note that all CT scans at this facility use dose modulation, iterative reconstruction, and/or weight-based dosing when appropriate to reduce radiation dose to as low as reasonably achievable. Dictated by Josue Gómez MD @ 09/20/2022 12:01:09 PM (Electronically Signed)
[2022-09-20] MEDS: NYSTATIN CREAM 30 GM 1 APPLIC TOPICAL ×3 (08:59→20:25)
[2022-09-20] MEDS: QUETIAPINE 25 MG TABLET 50 MG PO ×2 (08:59→20:24)
[2022-09-20] MEDS: 0.9 % SODIUM CHLORIDE 250 ml IV (09:30)
--- NOTE | 2022-09-20 10:56 | PC.NURSE ---
PATIENT'S O2 SATS NOTED TO BE 97%RA AT BEGINNING OF SHIFT. ATTEMPTED TO WEAN O2. AFTER 15 MINUTES, PATIENT REPORTED FEELING SOB AND SATS NOTED TO BE 84%RA. REPLACED O2 AT 1L PER NC AND UPDATED DR. GARCIA. ORDER PLACED FOR CHEST CT AND #20G SALINE LOCK PLACED TO LEFT FOREARM.
[2022-09-20] MEDS: SODIUM CHLORIDE NASAL SPRAY 1 SPRAY NOSTRIL-B (11:30)
--- NOTE | 2022-09-20 14:53 | PC.NURSE ---
NO FURTHER REPORTS OF SOB. SATS 92-94%RA. WOUND CARE COMPLETED ON HANDS. MEPILEX PLACED ON RIGHT RING FINGER OPEN BLISTER. TOLERATING REGULAR DIET WITH NO C/O N/V. PATIENT COMPLETED DEC ASSESSMENT.
--- NOTE | 2022-09-20 16:40 | PM.IMPN1 ---
Progress Note: A&P Assessment and plan (1) Attempted suicide: Problem details: Attempted suicide by huffing dust-off. Status: Acute Assessment and Plan: Overnight cardiac monitoring and troponins recommended by poison control, which has completed. Patient is no longer tachycardic. (2) Huffing: Status: Acute (3) Rhabdomyolysis: Problem details: From prolonged immobilization. CK normalized, Cr unchanged. Status: Resolved (4) Frostbite: Problem details: Munoz bit on fingertips with some intact and some ruptured blisters and a ruptured blister on his abdomen which he attributes to freezing from the dust-off cans. Leave fingertips blisters intact. Continue routine wound care for those that have ruptured. Status: Acute (5) Cellulitis: Problem details: Over his abdominal pannus and bilaterally in his legs. Improving continue cefazolin, changed to oral antibiotic on discharge. Status: Acute (6) Diaper dermatitis: Problem details: Nystatin Status: Acute (7) Diabetes mellitus: Problem details: Monitor Status: Deleted Assessment and Plan: Blood glucoses are within goal. Continue current regimen. (8) Major depression: Problem details: Continues to be suicidal. Mental health placement Status: Acute (9) Alcoholic cirrhosis of liver: Problem details: Continue outpatient treatment Status: Acute (10) Morbid obesity with BMI of 40.0-44.9, adult: Status: Acute (11) Unable to care for self: Problem details: Needs mental health placement Status: Acute (12) Weakness: Problem details: PT and OT Status: Acute (13) Hypokalemia: Status: Resolved Plan This is a 47-year-old male who attempted suicide by huffing dust-off. He has completed the overnight monitoring suggested by poison Control with resolution of sinus tachycardia and serial troponins that are unremarkable. He has blisters from frostbite, cellulitis and dermatitis. These are improving. Continue antibiotics for 10 days total. I reviewed reviewed his history from Care everywhere and note that he has chronic thrombocytopenia and anemia. He has atelectasis which is causing mild hypoxia. Start incentive spirometer. Medically stable for discharge, dec assessment on this morning, awaiting placement. Time Spent With Patient Total time spent: Today I spent 35 minutes rounding on the patient. Greater than 50% included discussing suicidal ideation, long-term plan of care, discussing care with the team, reviewing data, updating and managing the care plan. Subjective Time Seen by Provider: 08:00 Date Seen: 09/20/22 Interval history: Eagle's only concern today was what would happen to him once he got treated for mental health at an inpatient facility. He is concerned that he will go home without any chronic help or follow-up. He is convinced that he needs a returned case inspector in order to help him. He said that he was given a number an asked to follow-up last time was discharged from [facility], but he did not follow through with that. He said that without a returned case inspector he is just going to go right back to feeling depressed and suicidal and then he started to list all the ways in which he could kill himself and ways in which he could kill himself that would not work and why they would not work. Just after I saw him, the nurse and told me that he had an episode where his oxygen saturation drop into the mid 80s and he was tachycardic. This lasted just a few minutes and then resolved completely although he did continue to require 1 L oxygen periodically. Exam Narrative: Exam Narrative: General: No acute distress. Awake, alert, oriented x3. No pallor. No jaundice. Depressed affect. Cardiovascular: Mildly tachycardic, regular. No murmurs, gallops, or rubs. Respiratory: Clear to auscultation bilaterally. No wheezes or crackles. Abdomen: Bowel sounds present. Soft, nondistended, nontender. Mepilex bandage covering wound inferior to umbilicus. Bandage is clean, dry, and intact. Rash in groin with papules over upper medial thighs improving. Extremities: Blisters on finger pads are covered with Band-Aids. These are clean, dry, and intact. Calves continue to improve and are less erythematous and tender. Const: Vital Signs, click to edit/add: Vital Signs - 24 hr 09/19/22 19:00 09/19/22 23:12 09/19/22 23:21 Temperature 98.1 F 98.1 F Pulse Rate [Right Radial] 91 94 Respiratory Rate 18 18 Blood Pressure [Ri ght Arm] 112/61 132/72 Pulse Oximetry 94 95 95 Oxygen Delivery Me thod Room Air Room Air Oxygen Flow Rate 1.0 1.0 09/19/22 23:40 09/19/22 23:42 09/20/22 02:42 Temperature 98 F Pulse Rate [Right Radial] 94 98 Respiratory Rate 18 18 18 Blood Pressure [Ri ght Arm] 146/78 H Pulse Oximetry 95 92 Oxygen Delivery Me thod Room Air Nasal Cannula Oxygen Flow Rate 1.0 1 09/20/22 08:00 09/20/22 08:00 09/20/22 08:30 Temperature 98.4 F Pulse Rate [Right Radial] 87 Respiratory Rate 18 Blood Pressure [Ri ght Arm] 109/62 Pulse Oximetry 84 L 84 L 94 Oxygen Delivery Me thod Room Air Room Air Nasal Cannula Oxygen Flow Rate 1 09/20/22 11:00 09/20/22 15:00 Temperature 98 F Pulse Rate [Right Radial] 93 Respiratory Rate 18 18 Blood Pressure [Ri ght Arm] 119/67 Pulse Oximetry 94 94 Oxygen Delivery Me thod Nasal Cannula Nasal Cannula Oxygen Flow Rate 1 1 Documenting provider has reviewed patient's vital signs: yes Labs Labs: Laboratory Results - last 24 hr 09/20/22 09/20/22 05:39 05:39 WBC 2.38 L RBC 3.76 L Hgb 10.0 L Hct 32.0 L MCV 85 MCH 27 MCHC 31 L RDW Coeff of Caridad 17.5 H Plt Count 85 L Neut % (Auto) 50.9 Lymph % (Auto) 37.8 [place] % (Auto) 8.4 Eos % (Auto) 2.9 Baso % (Auto) 0.0 Neut # (Auto) 1.20 L Lymph # (Auto) 0.90 [place] # (Auto) 0.20 Eos # (Auto) 0.10 Baso # (Auto) 0.00 Abs Immat Gran (auto) 0.00 Imm/Tot Granulo (auto) 0.0 Sodium 136 Potassium 4.0 Chloride 104 Carbon Dioxide 34 H BUN 6 Creatinine 0.4 L Estimated Creat Clear 401.72 Estimated GFR 134 Glucose 78 Calcium 8.4 Ordering Physician: Catherine Cobb MD Date of Service: 09/20/22 Procedure(s): CT angio chest PE protocol Accession Number(s): [id number] cc: Catherine Cobb MD; Hanna Miller M.D.~ For Patients: As a result of the Century Cures Act, medical imaging exams and procedure reports are released immediately into your electronic medical record. You may view this report before your referring provider. If you have questions, please contact your health care provider. INDICATION: Hypoxia and tachycardia. COMPARISON: None TECHNIQUE: : CT examination of the chest was performed with the uneventful intravenous administration of 95 cc of Isovue 3 7 while thin axial sections were obtained from above the apices of the lungs to the lung bases. Please note that all CT scans at this facility use dose modulation, iterative reconstruction, and/or weight-based dosing when appropriate to reduce radiation dose to as low as reasonably achievable. FINDINGS: : HEART and MEDIASTINUM: The heart size is normal. There is no mediastinal or hilar adenopathy or mass. There is no pericardial effusion. PULMONARY ARTERIAL CIRCULATION: There is some limitations due to motion but there is no indication of acute pulmonary embolus. Smaller peripheral emboli M would likely be inapparent on this study LUNGS: Linear opacities primarily basilar probably due to atelectasis. PLEURAL SPACES: There is no pleural effusion, pneumothorax or pleural based mass. VISUALIZED UPPER ABDOMEN: Significant ascites. Splenomegaly. OSSEOUS STRUCTURES: Age-appropriate appearance. No acute fracture or destructive process.Prominent bilateral gynecomastia TUBES and LINES: None. IMPRESSION: 1. Somewhat limited by motion but no indication of acute pulmonary embolus. 2. Linear opacities primarily at the lung bases likely due to subsegmental atelectasis. 3. Significant ascites. Splenomegaly. 4. Prominent bilateral gynecomastia. Please note that all CT scans at this facility use dose modulation, iterative reconstruction, and/or weight-based dosing when appropriate to reduce radiation dose to as low as reasonably achievable. Dictated by Josue Gómez MD @ 09/20/2022 12:01:09 PM (Electronically Signed)
[2022-09-20] MEDS: LITHIUM CARBONATE 150 MG CAPSULE 750 MG PO (20:25)
[2022-09-20] MEDS: LORazepam 0.5 MG TABLET PO (20:25)
[2022-09-20] MEDS: ENOXAPARIN 40 MG/0.4 ML INJ SUBCUT (20:26)
[2022-09-20] MEDS: cephALEXin 500 MG CAPSULE PO (20:42)
--- NOTE | 2022-09-20 23:41 | PC.NURSE ---
Shift Note: Pt cooperative with cares. Flat affect and occasional self-deprecating comments. Compliant with cares, independently brushed teeth and washed face at HS with supervision. Walked around the unit with SUMIT. LE's elevated when in bed. Elizabeth care provided and Nystatin applied to reddened areas. NQ=733 and 99, no sliding scale Novolog needed.
[2022-09-21 03:00] VITALS: RESP 18
--- NOTE | 2022-09-21 05:04 | PC.NURSE ---
[id number] Pt slept during shift.
[2022-09-21] MEDS: OMEPRAZOLE 20 MG CAPSULE DR 40 MG PO (06:29)
[2022-09-21 07:00] VITALS: BP 122/71; PULSE 94; RESP 18; O2SAT 91
--- NOTE | 2022-09-21 09:33 | P.IMPN_ITS ---
Progress Note: A&P Assessment and plan (1) Attempted suicide: Problem details: Attempted suicide by huffing dust-off. Status: Acute Assessment and Plan: Overnight cardiac monitoring and troponins recommended by poison control, which has completed. Patient is no longer tachycardic. (2) Huffing: Status: Acute (3) Rhabdomyolysis: Problem details: From prolonged immobilization. CK normalized, Cr unchanged. Status: Resolved (4) Frostbite: Problem details: Munoz bit on fingertips with some intact and some ruptured blisters and a ruptured blister on his abdomen which he attributes to freezing from the dust- off cans. Leave fingertips blisters intact. Continue routine wound care for those that have ruptured. Status: Acute (5) Cellulitis: Problem details: Over his abdominal pannus and bilaterally in his legs. Now on oral keflex. Status: Acute (6) Diaper dermatitis: Problem details: Nystatin Status: Acute (7) Major depression: Problem details: Continues to be suicidal. Mental health placement Status: Acute (8) Alcoholic cirrhosis of liver: Problem details: Continue outpatient treatment Status: Acute (9) Morbid obesity with BMI of 40.0-44.9, adult: Status: Acute (10) Unable to care for self: Problem details: Needs mental health placement Status: Acute (11) Weakness: Problem details: PT and OT Status: Acute (12) Hypokalemia: Status: Resolved (13) Pancytopenia: Problem details: saw hematology in [place] 2020 Status: Acute (14) Thrombocytopenia: Problem details: diagnosed 2016 Status: Chronic (15) Diabetes mellitus: Problem details: Monitor Status: Chronic (16) Atelectasis of both lungs: Status: Acute (17) Abdominal ascites: Problem details: secondary to alcoholic cirrhosis Status: Acute Plan This is a 47-year-old male who attempted suicide by huffing dust-off. He has completed the overnight monitoring suggested by poison Control with resolution of sinus tachycardia and serial troponins were unremarkable. He has blisters from frostbite, cellulitis and dermatitis. These are improving. Continue antibiotics for 10 days total, now doing well on keflex. Atelectasis improving with IS; mild hypoxia has resolved. Medically stable for discharge, dec assessment on this morning, awaiting placement. Subjective Time Seen by Provider: 08:02 Date Seen: 09/21/22 Interval history: Eagle has no complaints today. He says he has been doing the IS frequently, and then we discussed technique for IS. He has not required oxygen overnight. He was switched to an oral antibiotic yesterday. Exam Narrative: Exam Narrative: General: No acute distress. Awake, alert, oriented x3. No pallor. No jaundice. Flat affect. Cardiovascular: Regular rate and rhythm. No murmurs, gallops, or rubs. Respiratory: Clear to auscultation bilaterally. No wheezes or crackles. Const: Vital Signs, click to edit/add: Vital Signs - 24 hr 09/20/22 11:00 09/20/22 15:00 09/20/22 15:00 Temperature 98 F 98.4 F Pulse Rate [Right Radial] 93 91 Respiratory Rate 18 18 18 Blood Pressure [Ri ght Arm] 119/67 118/66 Pulse Oximetry 94 94 92 Oxygen Delivery Me thod Nasal Cannula Nasal Cannula Room Air Oxygen Flow Rate 1 1 09/20/22 19:00 09/20/22 23:00 09/20/22 23:00 Temperature 98.5 F Pulse Rate [Right Radial] 96 96 Respiratory Rate 18 Blood Pressure [Ri ght Arm] 123/68 Pulse Oximetry 93 93 Oxygen Delivery Me thod Room Air Room Air Oxygen Flow Rate 09/20/22 23:00 09/21/22 03:00 Temperature 98.5 F Pulse Rate [Right Radial] 92 Respiratory Rate 18 18 Blood Pressure [Ri ght Arm] 128/69 Pulse Oximetry 93 Oxygen Delivery Me thod Room Air Oxygen Flow Rate Documenting provider has reviewed patient's vital signs: yes
[2022-09-21] MEDS: buPROPion XL 150 MG TABLET 300 MG PO (09:39)
[2022-09-21] MEDS: ESCITALOPRAM 10 MG TABLET 20 MG PO (09:40)
[2022-09-21] MEDS: cephALEXin 500 MG CAPSULE PO ×4 (09:40→21:02)
[2022-09-21] MEDS: GLIMEPIRIDE 1 MG TABLET 2 MG PO (09:41)
[2022-09-21] MEDS: FOLIC ACID 1 MG TABLET PO (09:41)
[2022-09-21] MEDS: MULTIVITAMIN/MINERALS 1 TABLET 1 TAB PO (09:41)
[2022-09-21] MEDS: FUROSEMIDE 20 MG TABLET PO (09:41)
[2022-09-21] MEDS: NYSTATIN CREAM 30 GM 1 APPLIC TOPICAL ×3 (09:42→21:03)
[2022-09-21] MEDS: QUETIAPINE 25 MG TABLET 50 MG PO ×2 (09:42→21:02)
[2022-09-21] MEDS: SODIUM CHLORIDE 0.9 % (FLUSH) 10 ML SYRINGE 5 ML IVF ×2 (09:42→21:18)
[2022-09-21] MEDS: SPIRONOLACTONE 25 MG TABLET 50 MG PO (09:42)
[2022-09-21 15:00] VITALS: BP 107/63; PULSE 83; RESP 18; O2SAT 93
--- NOTE | 2022-09-21 15:32 | PC.SOCIAL ---
[facility] declined pt. stating he was to high of acuity with his medical issues. [facility] is still assessing, but [facility] and [facility] declined him yesterday. A message was left with [facility] since pt. had just been their at the end of August and their census states they have a bed.
[2022-09-21] MEDS: LORazepam 0.5 MG TABLET PO ×2 (17:48→21:12)
--- NOTE | 2022-09-21 17:56 | PC.NURSE ---
[facility] has called stating [facility] has declined patient as their provider feels he needs a medical/mental health bed. [facility] has no beds and currently is boarding multiple patients in their ER. Instructed to try back after 0900 tomorrow.
--- NOTE | 2022-09-21 18:59 | PC.NURSE ---
Addendum entered by Sophia Paulino RN 09/21/22 19:20: bandage on R fingers changed, open wounds washed with wound wash and dried. Original Note: Nursing Care Hours: [phone] Pt this shift calm and cooperative. Naps in bed throughout the day but willing to work with machine sign writer and therapists. Admits to still having suicidal ideation when asked, but does not talk about it otherwise. Spoke with machine sign writer about move from [place] stating I took a chance, maybe not the best idea. States he has a small network of work friends who have similar struggles with mental health. Expressed fraustration with memory recall and forgetting what people had said or who they are after initial meeting. Stated that he has used his phone historically to record conversations with doctors in order to remember what was said. Expressed interest in writing out ideas and thoughts and understandable why he is not allowed a pencil or pen at this time. A white board and white board marker were provided and pt appreciative. Bilat legs red and edematous, no open areas. TEDS and SCD's on. Bandage on
[2022-09-21 19:00] VITALS: BP 128/70; PULSE 91; RESP 20; TEMP 36.7; O2SAT 93
[2022-09-21] MEDS: hydrOXYzine pamoate 25 MG CAPSULE 50 MG PO (19:29)
--- NOTE | 2022-09-21 20:58 | PC.NURSE ---
[facility] is declining patient this evening due to weather conditions. They will look at his case again in the morning around 11 am and contact us.
[2022-09-21] MEDS: ENOXAPARIN 40 MG/0.4 ML INJ SUBCUT (21:03)
[2022-09-21] MEDS: LITHIUM CARBONATE 150 MG CAPSULE 750 MG PO (21:03)
[2022-09-21 23:00] VITALS: BP 113/70; PULSE 91; PULSE 92; RESP 20; TEMP 36.7; O2SAT 93; O2SAT 94
[2022-09-22] VITALS (9 sets, daily range): BP systolic 105–131; BP diastolic 59–71; PULSE 89–107; RESP 18–20; TEMP 36.2–36.7; O2SAT 93–94
--- NOTE | 2022-09-22 05:03 | PC.NURSE ---
patient appears to have slept soundly overnight, 1:1 SUMIT watching patient, patient up with SBA to BR. shift unremarkable
[2022-09-22] MEDS: OMEPRAZOLE 20 MG CAPSULE DR 40 MG PO (06:12)
[2022-09-22] MEDS: buPROPion XL 150 MG TABLET 300 MG PO (08:45)
[2022-09-22] MEDS: FUROSEMIDE 20 MG TABLET PO (08:45)
[2022-09-22] MEDS: LORazepam 1 MG TABLET PO (08:45)
[2022-09-22] MEDS: GLIMEPIRIDE 1 MG TABLET 2 MG PO (08:45)
[2022-09-22] MEDS: QUETIAPINE 25 MG TABLET 50 MG PO ×2 (08:45→20:46)
[2022-09-22] MEDS: MULTIVITAMIN/MINERALS 1 TABLET 1 TAB PO (08:46)
[2022-09-22] MEDS: FOLIC ACID 1 MG TABLET PO (08:46)
[2022-09-22] MEDS: SODIUM CHLORIDE 0.9 % (FLUSH) 10 ML SYRINGE 5 ML IVF ×2 (08:46→20:47)
[2022-09-22] MEDS: ESCITALOPRAM 10 MG TABLET 20 MG PO (08:46)
[2022-09-22] MEDS: SPIRONOLACTONE 25 MG TABLET 50 MG PO (08:46)
[2022-09-22] MEDS: cephALEXin 500 MG CAPSULE PO (08:46)
--- NOTE | 2022-09-22 09:30 | PC.SOCIAL ---
[facility] and [facility] declined pt. [facility] declined for their [place] and [place] sites, only appropriate for [facility] which is full. [facility] in [place] has a bed and is assessing. All other beds are full for inpatient mental health.
--- NOTE | 2022-09-22 09:34 | PM.IMPN1 ---
Progress Note: A&P Assessment and plan (1) Attempted suicide: Problem details: Attempted suicide by huffing dust-off. Overnight cardiac monitoring and troponins recommended by poison control, which has completed. Patient is no longer tachycardic. Status: Acute (2) Major depression: Problem details: Continues to be suicidal. Mental health placement Status: Acute (3) Frostbite: Problem details: Munoz bit on fingertips with some intact and some ruptured blisters and a ruptured blister on his abdomen which he attributes to freezing from the dust-off cans. Leave fingertips blisters intact. Continue routine wound care for those that have ruptured. Status: Acute (4) Cellulitis: Problem details: Over his abdominal pannus and bilaterally in his legs. Status: Resolved (5) Diaper dermatitis: Problem details: Nystatin Status: Resolved (6) Alcoholic cirrhosis of liver: Problem details: Continue outpatient treatment Status: Chronic (7) Morbid obesity with BMI of 40.0-44.9, adult: Status: Acute (8) Unable to care for self: Problem details: Needs mental health placement Status: Acute (9) Weakness: Problem details: PT and OT Status: Acute (10) Hypokalemia: Status: Resolved (11) Pancytopenia: Problem details: saw hematology in [place] 2020 Status: Chronic (12) Thrombocytopenia: Problem details: diagnosed 2016 Status: Chronic (13) Diabetes mellitus: Problem details: type 2 Status: Chronic (14) Atelectasis of both lungs: Status: Resolved (15) Abdominal ascites: Problem details: secondary to alcoholic cirrhosis Status: Chronic Plan This is a 47-year-old male who attempted suicide by huffing dust-off. He has completed the overnight monitoring suggested by Poison Control and had resolution of sinus tachycardia; serial troponins were unremarkable. He has blisters from frostbite, cellulitis and dermatitis. These are not infected and are healing. Continue routine wound cares. Cellulitis and dermatitis have resolved. Stop antibiotics. Continue nystatin to groin for 1 more week. Atelectasis and mild hypoxia have resolved. Continue suicide precautions. Medically stable for discharge, awaiting placement, no bed available, no safe discharge plan at present. Subjective Time Seen by Provider: 07:45 Date Seen: 09/22/22 Interval history: Eagle is concerned about the blister on his right 4th finger this morning. He remains concerned about future outpatient plan of care. He denies chest pain or shortness of breath. Exam Narrative: Exam Narrative: General: No acute distress. Awake, alert, oriented x3. No pallor. No jaundice. Flat affect. Cardiovascular: Regular rate and rhythm. No murmurs, gallops, or rubs. Respiratory: Clear to auscultation bilaterally. No wheezes or crackles. Abdomen: Bowel sounds present soft, mildly distended, nontender. Superficial ulcer inferior to umbilicus is healing and about 10% smaller than it was 3 days ago. No erythema or induration, no drainage. Groin: Erythema has resolved. There is cream in the skin folds. Pustules on medial upper thighs have improved and are almost gone, there is no erythema. Extremities: Fingers of left hand are healed. Right fingers have blisters that have opened and are flat, without erythema or purulent drainage. Right 4th finger blister was hemorragic, but it now open and flat without drainage or ongoing bleeding. No erythema or induration. Álvaro's toes were in place and removed. Bilateral lower extremity erythema has completely resolved. He continues to have 1+ bilateral pitting edema lower extremities. Const: Vital Signs, click to edit/add: Vital Signs - 24 hr 09/21/22 15:00 09/21/22 15:00 09/21/22 19:00 Temperature 98.1 F Pulse Rate [Right Radial] 83 91 Respiratory Rate 18 18 20 Blood Pressure [Ri ght Arm] 107/63 128/70 Pulse Oximetry 93 93 93 Oxygen Delivery Me thod Room Air Room Air Room Air 09/21/22 23:00 09/21/22 23:00 09/21/22 23:00 Temperature 98.1 F Pulse Rate [Right Radial] 91 92 Respiratory Rate 20 20 20 Blood Pressure [Ri ght Arm] 113/70 Pulse Oximetry 93 94 Oxygen Delivery Va thod Room Air Room Air 09/22/22 03:00 09/22/22 08:00 09/22/22 08:00 Temperature 97.2 F L Pulse Rate [Right Radial] 93 Respiratory Rate 18 18 20 Blood Pressure [Ri ght Arm] 118/62 Pulse Oximetry 94 94 Oxygen Delivery Va thod Room Air Room Air Room Air 09/22/22 08:23 Temperature Pulse Rate [Right Radial] 94 Respiratory Rate 20 Blood Pressure [Ri ght Arm] Pulse Oximetry Oxygen Delivery Me thod Documenting provider has reviewed patient's vital signs: yes
[2022-09-22] MEDS: NYSTATIN CREAM 30 GM 1 APPLIC TOPICAL ×3 (12:22→20:47)
--- NOTE | 2022-09-22 15:15 | PC.SOCIAL ---
[facility] declined pt. stating their psychiatrist felt pt. was had too many medical issues with his frostbite fingers, cellulitis, and cirrhosis of the liver. Also pt. does not seem motivated for self care and pt.'s have to be completely indepdendent with ADL's. They recommended inpatient chemical dependency. [facility] has a bed and is assessing.
--- NOTE | 2022-09-22 18:14 | PC.NURSE ---
End of shift. Pt has been pleasant and cooperative. no pain Pt has been cooperative and following staff request. . Flat affect. no negative comments. pt is doing his own cares, independently brushed teeth and washed face at with supervision. he is up ab radu staff is with him as he is on suicide precautions. teds are on and off. he is eating, drinking and voiding with no problems. BS 81, 121 and 111. . LE's elevated when in bed. Elizabeth care provided and Nystatin applied to reddened areas. he is a one to one NA. SL was flushed.
[2022-09-22] MEDS: ENOXAPARIN 40 MG/0.4 ML INJ SUBCUT (20:46)
[2022-09-22] MEDS: LORazepam 0.5 MG TABLET PO (20:46)
[2022-09-22] MEDS: LITHIUM CARBONATE 150 MG CAPSULE 750 MG PO (20:46)
[2022-09-22] MEDS: hydrOXYzine pamoate 25 MG CAPSULE 50 MG PO (22:17)
[2022-09-23] VITALS (7 sets, daily range): BP systolic 103–124; BP diastolic 56–79; PULSE 86–93; RESP 16–20; TEMP 36.2–36.7; O2SAT 90–93
--- NOTE | 2022-09-23 00:18 | PC.NURSE ---
OB RN sitting 1:1 with patient for safety precautions
--- NOTE | 2022-09-23 05:14 | PC.NURSE ---
patient up ad radu, 1:1 SUMIT, patient slept majority of the night.
[2022-09-23] MEDS: OMEPRAZOLE 20 MG CAPSULE DR 40 MG PO (06:27)
[2022-09-23] MEDS: SODIUM CHLORIDE 0.9 % (FLUSH) 10 ML SYRINGE 5 ML IVF ×2 (09:03→21:14)
[2022-09-23] MEDS: GLIMEPIRIDE 1 MG TABLET 2 MG PO (09:04)
[2022-09-23] MEDS: FUROSEMIDE 20 MG TABLET PO (09:04)
[2022-09-23] MEDS: buPROPion XL 150 MG TABLET 300 MG PO (09:04)
[2022-09-23] MEDS: FOLIC ACID 1 MG TABLET PO (09:04)
[2022-09-23] MEDS: ESCITALOPRAM 10 MG TABLET 20 MG PO (09:04)
[2022-09-23] MEDS: SPIRONOLACTONE 25 MG TABLET 50 MG PO (09:04)
[2022-09-23] MEDS: MULTIVITAMIN/MINERALS 1 TABLET 1 TAB PO (09:04)
[2022-09-23] MEDS: QUETIAPINE 25 MG TABLET 50 MG PO ×2 (09:05→21:12)
[2022-09-23] MEDS: NYSTATIN CREAM 30 GM 1 APPLIC TOPICAL ×3 (09:05→21:13)
--- NOTE | 2022-09-23 09:21 | P.IMPN_ITS ---
Progress Note: A&P Assessment and plan (1) Attempted suicide: Problem details: Attempted suicide by huffing dust-off. Overnight cardiac monitoring and troponins recommended by poison control, which has completed. Patient is no longer tachycardic. Status: Acute (2) Depression: Problem details: Accepted by [facility] in [place] for mental health treatment. Due to inclement weather unable to travel today. Status: Acute (3) Cellulitis: Problem details: Over his abdominal pannus and bilaterally in his legs. This has resolved with antibiotic treatment Status: Resolved (4) Alcoholic cirrhosis of liver: Problem details: Patient was pursuing transplant and in [place] at [facility]. Status of this is uncertain. He has been unable to follow through with some appointments. No active complications. Continue chronic management. Status: Chronic (5) Alcohol use disorder: Problem details: Recently sober. Status: Acute Plan Continue in-hospital awaiting safe discharge plan. Would benefit from psychiatric evaluation to address depression and suicidality prior to discussions about hospice verses ongoing treatment of cirrhosis of the liver. Time Spent With Patient Total time spent: Total time spent today is 35 minutes, 25 minutes in coordination of care and discussing with patient and other providers ongoing evaluation management of depression, suicidality and cirrhosis of the liver Subjective Date Seen: 09/23/22 Interval history: 47-year-old male seen in followup of suicide attempt and suicidality. Patient reports no specific concerns today other than he would like to talk to social media assistant. He is requesting their assistance in obtaining social security disability, looking for a job in [place], arranging hospice care. He is uncertain whether he is still a candidate for a liver transplant. His cellulitis of his legs is much better. Now off antibiotics. Exam Narrative: Exam Narrative: He is alert and appears in no distress. Speech is normal. Abdomen is normal appearance his abdomen pannus is without significant erythema. Lower extremities also without significant erythema. There did non tender. Support hose in place. Trace edema. Speech is normal. No flight of ideas. Mood and affect are appropriate and congruent. Const: Vital Signs, click to edit/add: Vital Signs - 24 hr 09/22/22 10:51 09/22/22 11:05 09/22/22 15:10 Temperature 97.2 F L 97.6 F Pulse Rate 107 H Pulse Rate [Right Radial] 90 Respiratory Rate 20 20 20 Blood Pressure 116/59 L Blood Pressure [Ri ght Arm] 105/60 Pulse Oximetry 93 93 Oxygen Delivery Me thod Room Air Room Air Oxygen Flow Rate 1 09/22/22 15:10 09/22/22 15:10 09/22/22 19:00 Temperature 97.8 F 98.1 F Pulse Rate Pulse Rate [Right Radial] 90 90 94 Respiratory Rate 18 18 18 Blood Pressure Blood Pressure [Ri ght Arm] 131/71 120/63 Pulse Oximetry 93 93 Oxygen Delivery Me thod Room Air Room Air Oxygen Flow Rate 1 09/22/22 22:20 09/22/22 22:23 09/22/22 22:23 Temperature Pulse Rate Pulse Rate [Right Radial] 89 Respiratory Rate 18 18 18 Blood Pressure Blood Pressure [Ri ght Arm] 127/62 Pulse Oximetry 93 93 Oxygen Delivery Me thod Room Air Room Air Oxygen Flow Rate 09/22/22 22:23 09/23/22 02:17 09/23/22 07:45 Temperature 98.1 F Pulse Rate Pulse Rate [Right Radial] 89 88 Respiratory Rate 18 18 18 Blood Pressure Blood Pressure [Ri ght Arm] 127/62 119/59 L Pulse Oximetry 93 90 91 Oxygen Delivery Me thod Room Air Room Air Room Air Oxygen Flow Rate 09/23/22 07:45 09/23/22 07:45 Temperature 97.9 F Pulse Rate Pulse Rate [Right Radial] 87 87 Respiratory Rate 18 18 Blood Pressure Blood Pressure [Ri ght Arm] 123/79 Pulse Oximetry 91 Oxygen Delivery Me thod Room Air Oxygen Flow Rate Documenting provider has reviewed patient's vital signs: yes
--- NOTE | 2022-09-23 13:43 | PC.SOCIAL ---
Called [facility] in-[facility] in [place], [place] regarding pt's acceptance to that facility yesterday. Confirmed with staff that pt has 24 hours to arrive after acceptance. He was officially accepted at 8:00pm yesterday 09/22/22. So, pt can arrive until 8:00pm today with no problem. If we are unable to send pt by that time due to weather issues, RN can call the facility at [phone] and discuss if there is a possibility of extending this admission time. Generally they are able to accommodate extensions when the transportation issue is connected with weather concerns.
--- NOTE | 2022-09-23 14:53 | PC.NURSE ---
Called [facility] and they will extend his bed hold until tomorrow afternoon. They would just like a phone call when patient has left our facility. EMS caddie supervisor is aware of this situation and will make a decision right away in the morning. They do have 3 trucks on until 4pm and could likely do the run if the roads are fair in the morning.
--- NOTE | 2022-09-23 18:24 | PC.NURSE ---
End of shift. ? Pt is pleasant and cooperative.? no pain ? he has a Flat affect.? he was talking more with staff today. no negative comments.? ? pt is doing his own cares.? he had a shower. he is up ab radu. staff is with him as he is on suicide precautions. ? teds are on and off. ? he is eating, drinking and voiding with no problems. ? BS 74, 100 and 121.? LE's are elevated when in bed. Elizabeth care provided and Nystatin applied to reddened areas. he is a one to one NA.? SL was flushed x2. dressing on finger off and ring finger has a dressing per MD clemons. other 2 can be open to air. ?teds are on and off,
[2022-09-23] MEDS: LORazepam 0.5 MG TABLET PO (21:12)
[2022-09-23] MEDS: LITHIUM CARBONATE 150 MG CAPSULE 750 MG PO (21:12)
[2022-09-23] MEDS: ENOXAPARIN 40 MG/0.4 ML INJ SUBCUT (21:13)
[2022-09-24 03:00] VITALS: RESP 16
--- NOTE | 2022-09-24 06:19 | PC.NURSE ---
End of shift status [id number] Pt alert and oriented. Flat affect but pleasant and thankful. Nothing given for pain. PRN ativan given at bedtime. VSS on room air. Overnight VS deferred to let pt sleep. 1:1 present for suicide precautions. Pt observed sleeping throughout the night. Plan to d/c to [facility] via EMS today.
[2022-09-24 07:00] VITALS: BP 120/69; PULSE 84; RESP 20; O2SAT 93
[2022-09-24] MEDS: buPROPion XL 150 MG TABLET 300 MG PO (08:45)
[2022-09-24] MEDS: OMEPRAZOLE 20 MG CAPSULE DR 40 MG PO (08:45)
[2022-09-24] MEDS: FUROSEMIDE 20 MG TABLET PO (08:46)
[2022-09-24] MEDS: MULTIVITAMIN/MINERALS 1 TABLET 1 TAB PO (08:46)
[2022-09-24] MEDS: SPIRONOLACTONE 25 MG TABLET 50 MG PO (08:46)
[2022-09-24] MEDS: QUETIAPINE 25 MG TABLET 50 MG PO (08:46)
[2022-09-24] MEDS: SODIUM CHLORIDE 0.9 % (FLUSH) 10 ML SYRINGE 5 ML IVF (08:47)
[2022-09-24] MEDS: ESCITALOPRAM 10 MG TABLET 20 MG PO (08:47)
[2022-09-24] MEDS: FOLIC ACID 1 MG TABLET PO (08:47)
[2022-09-24] MEDS: GLIMEPIRIDE 1 MG TABLET 2 MG PO (08:47)
[2022-09-24] MEDS: NYSTATIN CREAM 30 GM 1 APPLIC TOPICAL (08:53)
--- NOTE | 2022-09-24 09:26 | PC.SOCIAL ---
Discharge plan: Called [facility] and spoke with admitting. They are aware pt is arriving there today and that he is leaving here at 10:00. They had no questions and were provided with nurses station phone number to call if a new nurse to nurse report is needed.
--- NOTE | 2022-09-24 09:37 | PM.DS1 ---
DS: Providers Provider Date Seen: 09/24/22 Date of admission: 09/17/22 15:02 Primary care physician: Hanna Miller MD Admitting Clinician: Elvin Hummel MD Consults: 09/17/22 14:53 Consult to Physical Therapy [CONS] Routine Comment: Reason(s) for PT Consult:: Evaluate and Treat Any Restrictions?:: No Restrictions Consult to Spar Machine Operator [CONS] Routine Comment: Reason for Consult:: Suicide Risk Discharge Planning Needs 09/17/22 14:57 Consult to Occupational Therapy [CONS] Routine Comment: Reason(s) for OT Consult:: Evaluate and Treat Any Restrictions?:: No Restrictions Attending Physician on discharge: Ciro Llanes MD Date of Discharge: 09/24/22 DS: Summary Hospital Course Hospital Course: Patient discharged to outside facilty for Inpatient Psychiatry Evaluation (1) Attempted suicide: ?Problem details: Attempted suicide by huffing dust-off. Overnight cardiac monitoring and troponins recommended by poison control, which has completed.? Patient is no longer tachycardic. ?Status:?Acute (2) Depression: ?Problem details: Accepted by [facility] in [place] for mental health treatment.? Due to inclement weather unable to travel today. ?Status:?Acute (3) Cellulitis: ?Problem details: Over his abdominal pannus and bilaterally in his legs.? This has resolved with antibiotic treatment ?Status:?Resolved (4) Alcoholic cirrhosis of liver: ?Problem details: Patient was pursuing transplant and in [place] at [facility].? Status of this is uncertain.? He has been unable to follow through with some appointments. No active complications.? Continue chronic management. ?Status:?Chronic (5) Alcohol use disorder: ?Problem details: Recently sober. ?Status:?Acute he has 3 fingers with frostbite.? The 2nd finger has a dried blister and is healing well the 4th finger has a blood blister which is dried up and otherwise appears to be without infection.? The 5th finger are also has a dried blister on it.? At this point no further treatment is needed other than to cover that 4th finger to protect that area.? He should have daily examination his fingers looking for signs of infection [place] History of Present Illness Date Seen: 09/17/22 Chief complaint: Mental health Narrative: Slava Patricio is a 47 year old male brought to the emergency room by EMS for recurrent suicide attempt.? Patient reports he is depressed and tried to kill himself by huffing several cans of dust off.? Similar circumstances led to mental health hospitalization in [place] from August 28 to September 07.? Patient has been at home and has not left the house in the 10 days since discharge from the hospital.? His cousin Michelle called EMS.? Patient reports ongoing depression and ongoing suicidal intent.? He has also had suicide attempts by overdose and wrist cutting in the past.? This is about his 4th or 5th suicide attempt. When he was found by me EMS he was profoundly weak and hard to arouse.? In the emergency department he was hypoxic and tachycardic.? Poison Control was contacted.? They recommended cardiac monitoring and serial troponins. Patient reports that he has been taking his medications. He has cirrhosis of the liver due to alcohol abuse.? He has not been drinking alcohol for the last couple months.? He is seeking a liver transplant through [facility]. Time Spent with Patient Time attestation: Total time spent providing and/or coordinating discharge services: Exam Narrative: Exam Narrative: Gen: NAD HEENT: NCAT EOMI MMM CV: RRR s12 LCTAB Abd; Soft, nt, nd Neuro: AOX3 psyche: flat affect Const: Vital Signs, click to edit/add: Vital Signs - 24 hr 09/23/22 12:15 09/23/22 15:16 09/23/22 15:16 Temperature 98.0 F 97.2 F L Pulse Rate [Right Radial] 86 93 Respiratory Rate 16 16 18 Blood Pressure [Ri ght Arm] 103/56 L 111/68 Pulse Oximetry 93 93 93 Oxygen Delivery Me thod Room Air Room Air Room Air Oxygen Flow Rate 1 1 09/23/22 15:17 09/23/22 21:10 09/23/22 23:00 Temperature 98 F Pulse Rate [Right Radial] 93 90 90 Respiratory Rate 18 20 20 Blood Pressure [Ri ght Arm] 124/62 Pulse Oximetry 93 Oxygen Delivery Me thod Room Air Oxygen Flow Rate 09/23/22 23:00 09/23/22 23:00 09/24/22 03:00 Temperature Pulse Rate [Right Radial] Respiratory Rate 20 18 16 Blood Pressure [Ri ght Arm] Pulse Oximetry 93 Oxygen Delivery Me thod Room Air Room Air Oxygen Flow Rate 09/24/22 07:00 09/24/22 07:00 09/24/22 07:00 Temperature Pulse Rate [Right Radial] 84 84 Respiratory Rate 20 20 Blood Pressure [Ri ght Arm] 120/69 Pulse Oximetry 93 93 Oxygen Delivery Me thod Room Air Room Air Oxygen Flow Rate Discharge Plan Discharge Disposition: Xfer Other Date of Admission: 09/17/22 15:02 Attending Provider on Discharge: Ciro Llanes Primary Care Provider: Hanna Miller Condition: Stable Anticipated Discharge Date/Time: 09/24/22 09:17 Discharge Medications: Continued quetiapine 25 mg tablet 25 - 50 mg PO BID Label Comments: 25 MG IN AM 50 MG IN PM (DME) OneTouch Ultra Test Strip MISCELLANEOUS Label Comments: USE DIRECTED BY DOCTOR glimepiride 2 mg tablet 2 mg PO DAILY Label Comments: TAKE 1 TABLET BY MOUTH ONCE DAILY WITH A MEAL. vitamin A 10,000 unit capsule 10,000 unit PO DAILY Label Comments: TAKE 1 CAPSULE BY MOUTH EVERY DAY pantoprazole 40 mg tablet,delayed release (DR/EC) 40 mg PO DAILY Label Comments: TAKE 1 TABLET BY MOUTH EVERY DAY escitalopram oxalate 20 mg tablet 20 mg PO DAILY Label Comments: TAKE 1 TABLET BY MOUTH EVERY DAY bupropion HCl 300 mg tablet extended release 24 hr 300 mg PO DAILY Label Comments: TAKE 1 TABLET BY MOUTH EVERY DAY cholecalciferol (vitamin D3) 1,250 mcg (50,000 unit) capsule 5,000 mcg PO .WEEKLY Label Comments: TAKE 1 CAPSULE BY MOUTH ONE DAY A WEEK furosemide 20 mg tablet 20 mg PO DAILY Qty: 3 0RF hydroxyzine HCl 50 mg tablet 50 mg PO TID PRN lithium carbonate 300 mg tablet 300 mg PO HS lithium carbonate 450 mg tablet extended release 450 mg PO HS multivitamin [Daily Multi-Vitamin] Tablet 1 tab PO DAILY spironolactone 50 mg tablet 50 mg PO DAILY Label Comments: TAKE 1 TABLET BY MOUTH EVERY DAY Discharge Orders: Discharge Order (Routine); Ordered 09/24/22 Ordered By: Ciro Llanes Activity Level: Activity as Tolerated Discharge Diet: Diabetic Follow Up Appointments: Hanna Miller MD [Primary Care Provider] - (Schedule appointment as needed) Forms: MyHealth Info Instructions
== END 2022-09-24 11:11 | DRG 918 ==
LOC: ED 14:33 → MEDSURG 09-18 07:40
PROVIDERS: Family Medicine; Admitting Provider Family Medicine; Emergency Provider Family Medicine; PCP Family Medicine; Visit Provider Family Medicine
DX: T53.5X Toxic effects of chlorofluorocarbons (principal); T33.532A Superficial frostbite of left finger(s), initial encounter; T33.531A Superficial frostbite of right finger(s), initial encounter; L03.116 Cellulitis of left lower limb; L03.115 Cellulitis of right lower limb; L03.311 Cellulitis of abdominal wall; Z68.41 Body mass index [BMI] 40.0-44.9, adult; M62.82 Rhabdomyolysis; D61.818 Other pancytopenia; J98.11 Atelectasis; F33.2 Major depressive disorder, recurrent severe without psychotic features; K70.31 Alcoholic cirrhosis of liver with ascites; F10.21 Alcohol dependence, in remission; W93.12XA Inhalation of liquid air, initial encounter; Y92.009 Unspecified place in unspecified non-institutional (private) residence as the place of occurrence of the external cause; F41.9 Anxiety disorder, unspecified; E66.01 Morbid (severe) obesity due to excess calories; E11.9 Type 2 diabetes mellitus without complications; R60.0 Localized edema; L98.491 Non-pressure chronic ulcer of skin of other sites limited to breakdown of skin; Z87.891 Personal history of nicotine dependence; Z91.51 Personal history of suicidal behavior; L30.4 Erythema intertrigo; L22 Diaper dermatitis; R00.0 Tachycardia, unspecified; E87.6 Hypokalemia; D69.6 Thrombocytopenia, unspecified; R09.02 Hypoxemia; R53.1 Weakness
CPT/HCPCS: 36415; 71260; 80048; 80076; 80143; 80178; 80179; 80306; 81001; 82077; 82140; 82550; 82962; 83036; 83605; 83690; 83735; 83880; 84484; 85025; 85610; 85651; 86140; 87086; 87502; 87631; 87634; 87635; 93005; 93970; 94761; 97110; 97116; 97161; 97165; 97530; 97535; 99285; A9153; A9270; J0690; J1650; J7030; J7050; Q9967

== ENCOUNTER 2022-09-24 11:07 | Outpatient (CLI) | payer OTHER, SELFPAY | END 2022-09-24 11:08 | disposition home or self-care (01) | LOC: AMB 10-05 16:26 | PROVIDERS: PCP Family Medicine; Visit Provider Emergency Medicine Emergency Medical Services | DX: R45.851 Suicidal ideations (principal) | CPT/HCPCS: A0425; A0428 ==

== ENCOUNTER 2022-10-16 12:38 | Outpatient (CLI) | payer OTHER, SELFPAY | END 2022-10-16 12:39 | disposition home or self-care (01) | LOC: AMB 10-18 10:17 | PROVIDERS: PCP Family Medicine; Visit Provider Family Medicine | DX: R45.851 Suicidal ideations (principal); T65.892A Toxic effect of other specified substances, intentional self-harm, initial encounter; Y92.009 Unspecified place in unspecified non-institutional (private) residence as the place of occurrence of the external cause | CPT/HCPCS: A0425; A0427 ==

== ENCOUNTER 2022-10-16 13:01 | Emergency (ER) | payer OTHER, SELFPAY ==
[2022-10-16 13:12] VITALS: BP 120/49; PULSE 95; RESP 18; TEMP 37; O2SAT 96
--- NOTE | 2022-10-16 13:28 | ED.GENADULT ---
HPI - General Adult General Time Seen by Provider: 13:28 <Amberly Franz MD - Last Filed: 10/16/22 20:01> Date Seen: 10/16/22 <Amberly Franz MD - Last Filed: 10/16/22 20:01> Chief complaint: Psychiatric Problem/Disorder <Amberly Franz MD - Last Filed: 10/16/22 20:01> Stated complaint: Mental Health <Amberly Franz MD - Last Filed: 10/16/22 20:01> Time Seen by Provider: 10/16/22 13:03 <Amberly Franz MD - Last Filed: 10/16/22 20:01> Source: patient and RN notes reviewed <Amberly Franz MD - Last Filed: 10/16/22 20:01> Mode of arrival: ambulatory <Amberly Franz MD - Last Filed: 10/16/22 20:01> Limitations: no limitations <Amberly Franz MD - Last Filed: 10/16/22 20:01> History of Present Illness HPI narrative: Patient is a 47-year-old male that was brought in by EMS. The police were reportedly called, patient admits he was huffing to try to escape. He does not remember what type of aerosolized can he was using. He admits that he is severely depressed, describes himself as despondent. Admits that he was not trying to actively kill himself, more of an escape but does admit he feels suicidal and does consider suicide. He states that he does not want to commit suicide and cause his family that harm. He has aunts and uncles that her living in [place], no one that he could go stay with however. He admits he is alone and at home. He is having difficulty being there, admits he is not cleaning up after himself. He does feel like he is able to get food for himself and make food for himself. He states he is on the liver transplant list through [facility] but 1 of the things he needs to do is changes diet. He knows that that seemingly is a simple request but for him it seems quite difficult. We discussed how this small change is overwhelming for him, difficult in the fact that it is all upon him living by himself to do this. He told staff he would like to go in the hospital for psychiatric care or possibly be in a shelter. I have reviewed with him that the bed status is critical right now. We actually do not have any beds in our facility and her boarding in the ED. none the less, reviewed with him that I do think we need to do a medical workup, see where he is with his labs as far as his liver disease. He has not had any fevers, no abdominal pain, no cough or shortness of breath. He baseline has diarrhea and is on lactulose per report. He admits that he has been free from alcohol. He states his liver disease is from alcohol use. He was hospitalize mid September here for suicide attempt, had medical clearance and then was transferred to [facility]. He states that hospitalization was rather unhelpful. He states he was there about 2 weeks. He states they put him on lithium in its just made him feel out of it. He states he is still taking it. <Amberly Franz MD - Last Filed: 10/16/22 20:01> Related Data Home medications: Home Medications Medication Instructions Recorded Confirmed blood sugar diagnostic (OneTouch 06/22/22 06/22/22 Ultra Test strips) cholecalciferol (vitamin D3) 1,250 5,000 mcg PO .WEEKLY 06/22/22 09/17/22 mcg (50,000 unit) capsule escitalopram oxalate 20 mg tablet 20 mg PO DAILY 06/22/22 09/17/22 glimepiride 2 mg tablet 2 mg PO DAILY 06/22/22 09/17/22 pantoprazole 40 mg tablet,delayed 40 mg PO DAILY 06/22/22 09/17/22 release quetiapine 25 mg tablet 25 - 50 mg PO BID 06/22/22 09/17/22 vitamin A 10,000 unit capsule 10,000 unit PO DAILY 06/22/22 09/17/22 hydroxyzine HCl 50 mg tablet 50 mg PO TID PRN 09/17/22 09/17/22 lithium carbonate 300 mg tablet 300 mg PO HS 09/17/22 09/17/22 lithium carbonate 450 mg 450 mg PO HS 09/17/22 09/17/22 tablet,extended release multivitamin (Daily Multi-Vitamin 1 tab PO DAILY 09/17/22 09/17/22 tablet) spironolactone 50 mg tablet 50 mg PO DAILY 09/17/22 09/17/22 bupropion HCl 150 mg 24 hr tablet, 450 mg PO DAILY 10/17/22 10/17/22 extended release Previous Rx's Medication Instructions Recorded furosemide 20 mg tablet 20 mg PO DAILY #3 tabs 08/19/22 <Amberly Franz MD - Last Filed: 10/16/22 20:01> Allergies/adverse reactions: Allergies Allergy/AdvReac Type Severity Reaction Status Date / Time No Known Drug Allergies Allergy Verified 09/17/22 11:18 <Amberly Franz MD - Last Filed: 10/16/22 20:01> Review of Systems Status of ROS: Reports: 10 or more systems reviewed and unremarkable except as noted in History and below <Amberly Franz MD - Last Filed: 10/16/22 20:01> [facility] Medical History: Medical History Alcohol use disorder Alcoholic cirrhosis of liver Anemia of chronic disease Ankle fracture, right Anxiety Attempted suicide Diabetes mellitus Esophageal varices Hyperlipidemia Hypertension Major depression Morbid obesity with BMI of 40.0-44.9, adult Splenomegaly Tachycardia Thrombocytopenia Type 2 diabetes mellitus Vitamin D deficiency <Amberly Franz MD - Last Filed: 10/16/22 20:01> Surgical History: Surgical History History of appendectomy History of cholecystectomy Hx of colonoscopy S/P partial colectomy Status post ORIF of fracture of ankle <Amberly Franz MD - Last Filed: 10/16/22 20:01> Family History: Family History Mother Breast cancer Colon cancer CHF (congestive heart failure) Father Multiple myeloma <Amberly Franz MD - Last Filed: 10/16/22 20:01> Social History: Social History Narrative: He lives in [place] by himself. He has been isolated in his home in the last 10 days since discharge from [facility] hospitalization. He has previously engaged with a and a sponsor for his alcohol use disorder. He has not been drinking in the last couple months. He goes to [facility] for specialty care including possible liver transplant, mental health, obesity/bariatric surgery evaluation. He has no immediate family. Closest family would be his cousin Michelle who called 911 today. He indicates she could be as power of apns. He is a former cigarette smoker. Formally chewed tobacco. Highest level of school completed/degree received: Associate degree: occupational, technical, vocational program Smoking Status: Former smoker Non-prescribed substance use: other Non-prescribed substance use details: huffing aerosol cans Caffeine: Yes (4 cups) service: No <Amberly Franz MD - Last Filed: 10/16/22 20:01> Exam Const: Vital Signs, click to edit/add: Vital Signs - 24 hr 10/17/22 18:51 10/18/22 00:34 10/18/22 10:10 Temperature 98.9 F 98.1 F 98.7 F Pulse Rate [Right Pulse Oximeter] 91 86 Respiratory Rate 12 18 Blood Pressure [Ri ght Upper Arm] 109/65 111/69 Pulse Oximetry 92 93 Oxygen Delivery Me thod Room Air Room Air 10/18/22 08:30 10/18/22 12:30 Temperature 99.3 F Pulse Rate [Right Pulse Oximeter] 90 95 Respiratory Rate 18 18 Blood Pressure [Ri ght Upper Arm] 105/52 L 106/63 Pulse Oximetry 91 94 Oxygen Delivery Me thod Room Air Room Air <Amberly Franz MD - Last Filed: 10/16/22 20:01> Vital Signs, click to edit/add: Vital Signs - 24 hr 10/17/22 18:51 10/18/22 00:34 10/18/22 10:10 Temperature 98.9 F 98.1 F 98.7 F Pulse Rate [Right Pulse Oximeter] 91 86 Respiratory Rate 12 18 Blood Pressure [Ri ght Upper Arm] 109/65 111/69 Pulse Oximetry 92 93 Oxygen Delivery Me thod Room Air Room Air 10/18/22 08:30 10/18/22 12:30 Temperature 99.3 F Pulse Rate [Right Pulse Oximeter] 90 95 Respiratory Rate 18 18 Blood Pressure [Ri ght Upper Arm] 105/52 L 106/63 Pulse Oximetry 91 94 Oxygen Delivery Me thod Room Air Room Air <Amberly Tapia MD - Last Filed: 10/17/22 15:49> Vital Signs, click to edit/add: Vital Signs - 24 hr 10/17/22 18:51 10/18/22 00:34 10/18/22 10:10 Temperature 98.9 F 98.1 F 98.7 F Pulse Rate [Right Pulse Oximeter] 91 86 Respiratory Rate 12 18 Blood Pressure [Ri ght Upper Arm] 109/65 111/69 Pulse Oximetry 92 93 Oxygen Delivery Me thod Room Air Room Air 10/18/22 08:30 10/18/22 12:30 Temperature 99.3 F Pulse Rate [Right Pulse Oximeter] 90 95 Respiratory Rate 18 18 Blood Pressure [Ri ght Upper Arm] 105/52 L 106/63 Pulse Oximetry 91 94 Oxygen Delivery Me thod Room Air Room Air <Joss Del Castillo MD - Last Filed: 10/18/22 17:01> Documenting provider has reviewed patient's vital signs: yes <Amberly Franz MD - Last Filed: 10/16/22 20:01> Common normals: no apparent distress, oriented x3, no limitations and alert <Amberly Franz MD - Last Filed: 10/16/22 20:01> General appearance: cooperative, comfortable and disheveled <Amberly Franz MD - Last Filed: 10/16/22 20:01> Other: Socks are dirty, does have some mild bruising around his IV site in the left antecubital fossa. Did watch patient ambulate independently coming from the bathroom back into his room where I met him to see him. <Amberly Franz MD - Last Filed: 10/16/22 20:01> HENMT: Common normals: normocephalic, head/scalp atraumatic, hearing grossly normal bilaterally, external ears normal, external nose normal, nasal mucous membranes and turbinates normal, moist oral mucous membranes, oropharynx normal, dentition normal and gingiva normal <Amberly Franz MD - Last Filed: 10/16/22 20:01> Head and scalp: normocephalic and atraumatic <Amberly Franz MD - Last Filed: 10/16/22 20:01> Nose: external nose normal and nasal mucous membranes and turbinates normal <Amberly Franz MD - Last Filed: 10/16/22 20:01> External ear: external ears normal <Amberly Franz MD - Last Filed: 10/16/22 20:01> Eye: Common normals: PERRL, EOMs intact bilaterally, conjunctivae normal and no scleral icterus <Amberly Franz MD - Last Filed: 10/16/22 20:01> Conjunctiva: conjunctiva(e) normal <Amberly Franz MD - Last Filed: 10/16/22 20:01> Pupil: PERRL <Amberly Franz MD - Last Filed: 10/16/22 20:01> Neck & C-Spine: Common normals: full ROM, no lymphadenopathy, supple, no meningeal signs, no JVD and thyroid normal <Amberly Franz MD - Last Filed: 10/16/22 20:01> Thyroid: thyroid normal <MD Adalgisa Trujillo Last Filed: 10/16/22 20:01> Resp: Common normals: normal respiratory effort, no retractions, no use of accessory muscles and clear to auscultation bilaterally <Amberly Franz MD - Last Filed: 10/16/22 20:01> Auscultation: clear to auscultation bilaterally <MD Adalgisa Trujillo Last Filed: 10/16/22 20:01> Cardio: Common normals: no JVD, regular rate, regular rhythm, S1 normal heart sound, S2 normal heart sound, no gallops, no clicks and no murmurs <Amberly Franz MD - Last Filed: 10/16/22 20:01> Rate: regular rate <Amberly Franz MD - Last Filed: 10/16/22 20:01> Rhythm: regular rhythm <Amberly Franz MD - Last Filed: 10/16/22 20:01> Heart sounds: S1 normal and S2 normal <Amberly Franz MD - Last Filed: 10/16/22 20:01> GI: Other: Abdomen appears distended but actually is soft, no fluid wave. Patient has underlying obesity. No organomegaly, absolutely nontender. <Amberly Franz MD - Last Filed: 10/16/22 20:01> Extremity: Other: No lower extremity edema. <Amberly Franz MD - Last Filed: 10/16/22 20:01> Neuro: Common normals: oriented x3 <Amberly Franz MD - Last Filed: 10/16/22 20:01> Sensorium/orientation: alert <Amberly Franz MD - Last Filed: 10/16/22 20:01> Meningeal signs: no meningeal signs <Amberly Franz MD - Last Filed: 10/16/22 20:01> Course Course Hospital Course: Reviewed with patient that we are going to just need to do a workup here. I do think we should look at his medical status as far as his cirrhosis with laboratory evaluation. He does agree to do that. We will do a telehealth consult again. Looks as if he has been in an out of psychiatric facilities to no avail. I honestly wonder if a different living situation might benefit him more but that is not something I am going to be able to do on the weekend, I have no beds in the hospital here for him to come into. He does understand that and is accepting of that, just wants to know what I think and what we might be able to do. Reviewed with him that were going to have to just see what comes with his labs and this may be a process that is worked through with director social service in the county. <Amberly Franz MD - Last Filed: 10/16/22 20:01> Reevaluation(s) Reevaluation #1: Have reviewed with patient that telehealth recommended mental health hospitalization. He is fine with that and does agree. He believes his medicines are the same as when he was discharged here minus the lithium. Will see if we can work on his medication reconciliation and get appropriate medications ordered. Have reviewed with him that his cirrhosis looks to be medically stable, not decompensated at this time. He is medically clear to enter into a mental health facility for further evaluation and management from my standpoint. <Amberly Franz MD - Last Filed: 10/16/22 20:01> Time: 17:28 <Amberly Franz MD - Last Filed: 10/16/22 20:01> Reevaluation #2: Patient was just back up to the bathroom, nursing staff keeps missing collection of the urinalysis but will continue to work for this. He is cooperative, no change in his overall mentation. He is seeming a bit tremulous, pulse was up a bit but he had been up to the bathroom. Will cover him with a low-dose oral Ativan. Some of the facilities looking at him for hospitalization are requesting follow-up alcohol level which we will obtain at this time. <Amberly Franz MD - Last Filed: 10/16/22 20:01> Time: 20:00 <Amberly Franz MD - Last Filed: 10/16/22 20:01> Reevaluation #3: Round on this patient this morning. He is lying in bed but appears uncomfortable. He states that he just feels achy all over. He was able to get some sleep last night. He has been eating but he states that he both does not want to and it does not feel good to eat. Patient tells me that is been several weeks since he had any alcohol, despite presenting acutely intoxicated. Patient has been cooperative and calm while he has been here. Still feeling very sad, despondent and hopeless. I did go over all the patient's medications with him. He states that he has been on lithium for a couple of weeks now but he stopped taking it a couple of days ago because he felt confused and disoriented. It appears that this was restarted last night we will continue it at this time, this may need to be re-evaluated pending on his mood. He states that his Wellbutrin was increased to 450 mg daily so we will update this. Lastly, we will restart his p.r.n. Seroquel. At this time we are still awaiting inpatient psychiatric admission. <Amberly Tapia MD - Last Filed: 10/17/22 15:49> Time: 10:30 <Amberly Tapia MD - Last Filed: 10/17/22 15:49> Additional Reevaluation(s): Was alerted by nursing staff that patient had an elevated temperature of 100.1?. He was complaining of a sore throat. Repeat lactate had normalized. Triple swab was sent- is positive for influenza A. Repeat CBC shows pancytopenia. <Amberly Tapia MD - Last Filed: 10/17/22 15:49> Consultations Consultation #1: Have spoken with Varsha from [facility]. She knows Slava from prior consultation. She feels he needs hospitalization. He is suicidal although has not given her a specific plan. He has had recent hospitalizations for his mental health, he has had recent medication changes, history of multiple attempts prior. We will follow her advice, we will look for placement for him. Ultimately, I think at some point he needs a different venue as far as where he lives. He may do better in assisted living or Care Center type situation if it could be found. Obviously, that is a consideration for after acute mental health hospitalization. Medically he is stable as far as his cirrhosis. His MELD-Na score is 16 points which gives him less than 2% 90 day mortality. Thus, he is low on this calculated score. <Amberly Franz MD - Last Filed: 10/16/22 20:01> Time: 17:15 <Amberly Franz MD - Last Filed: 10/16/22 20:01> Vital Signs Vital signs: Initial Vital Signs Temperature 98.6 F 10/16/22 13:12 Temperature Source Temporal Artery Scan 10/16/22 13:12 Pulse Rate 95 10/16/22 13:12 Respiratory Rate 18 10/16/22 13:12 Blood Pressure 120/49 L 10/16/22 13:12 Blood Pressure Mean 72 10/16/22 13:12 Blood Pressure Position Sitting 10/16/22 13:12 Pulse Oximetry 96 10/16/22 13:12 Oxygen Delivery Method 10/16/22 13:12 Vital Signs Temperature 98.6 F 10/16/22 13:12 Pulse Rate 95 10/16/22 13:12 Respiratory Rate 18 10/16/22 13:12 Blood Pressure 120/49 L 10/16/22 13:12 Pulse Oximetry 96 10/16/22 13:12 Oxygen Delivery Method 10/16/22 13:12 Temperature 99.3 F 10/18/22 12:30 Pulse Rate 95 10/18/22 12:30 Respiratory Rate 18 10/18/22 12:30 Blood Pressure 106/63 10/18/22 12:30 Pulse Oximetry 94 10/18/22 12:30 Oxygen Delivery Method 10/18/22 12:30 <Amberly Franz MD - Last Filed: 10/16/22 20:01> Initial Vital Signs Temperature 98.6 F 10/16/22 13:12 Temperature Source Temporal Artery Scan 10/16/22 13:12 Pulse Rate 95 10/16/22 13:12 Respiratory Rate 18 10/16/22 13:12 Blood Pressure 120/49 L 10/16/22 13:12 Blood Pressure Mean 72 10/16/22 13:12 Blood Pressure Position Sitting 10/16/22 13:12 Pulse Oximetry 96 10/16/22 13:12 Oxygen Delivery Method 10/16/22 13:12 Vital Signs Temperature 98.6 F 10/16/22 13:12 Pulse Rate 95 10/16/22 13:12 Respiratory Rate 18 10/16/22 13:12 Blood Pressure 120/49 L 10/16/22 13:12 Pulse Oximetry 96 10/16/22 13:12 Oxygen Delivery Method 10/16/22 13:12 Temperature 99.3 F 10/18/22 12:30 Pulse Rate 95 10/18/22 12:30 Respiratory Rate 18 10/18/22 12:30 Blood Pressure 106/63 10/18/22 12:30 Pulse Oximetry 94 10/18/22 12:30 Oxygen Delivery Method 10/18/22 12:30 <Amberly Tapia MD - Last Filed: 10/17/22 15:49> Initial Vital Signs Temperature 98.6 F 10/16/22 13:12 Temperature Source Temporal Artery Scan 10/16/22 13:12 Pulse Rate 95 10/16/22 13:12 Respiratory Rate 18 10/16/22 13:12 Blood Pressure 120/49 L 10/16/22 13:12 Blood Pressure Mean 72 10/16/22 13:12 Blood Pressure Position Sitting 10/16/22 13:12 Pulse Oximetry 96 10/16/22 13:12 Oxygen Delivery Method 10/16/22 13:12 Vital Signs Temperature 98.6 F 10/16/22 13:12 Pulse Rate 95 10/16/22 13:12 Respiratory Rate 18 10/16/22 13:12 Blood Pressure 120/49 L 10/16/22 13:12 Pulse Oximetry 96 10/16/22 13:12 Oxygen Delivery Method 10/16/22 13:12 Temperature 99.3 F 10/18/22 12:30 Pulse Rate 95 10/18/22 12:30 Respiratory Rate 18 10/18/22 12:30 Blood Pressure 106/63 10/18/22 12:30 Pulse Oximetry 94 10/18/22 12:30 Oxygen Delivery Method 10/18/22 12:30 <Joss Del Castillo MD - Last Filed: 10/18/22 17:01> Medical Decision Making MDM Narrative Medical decision making narrative: This patient is spent 3 days here awaiting for inpatient psychiatric evaluation and treatment. He is positive for influenza a and this disqualifies him from many options. There have been no beds available over these 3 days. There was an opening in [place] but he had been there recently and states that he does not want to go back there. He has come to realize that he is not feeling suicidal and has some plans for improving his life. [facility] and completed. The recommendation is for him to return home with somebody who can watch him over the next day or so. There are follow-up arrangements made for attention to his psychiatric needs and there are some discussions and recommendations for coping with circumstances and feelings instead of inhaling aerosolized chemicals to escape. This patient is okay to be discharged home under these circumstances. <Joss Del Castillo MD - Last Filed: 10/18/22 17:01> Lab Data Lab results reviewed: Yes I reviewed the patient's lab results <Amberly Franz MD - Last Filed: 10/16/22 20:01> Labs: Lab Results 10/16/22 10/16/22 10/16/22 Range/Units 09:20 13:49 14:14 WBC 6.75 (4.50-11.00) K/uL RBC 4.75 (4.30-5.90) m/uL Hgb 12.1 L (13.5-17.5) gm/dL Hct 38.4 (37.0-53.0) % MCV 81 (80-100) fL MCH 26 (26-34) pg MCHC 32 (32-36) gm/dL RDW Coeff of Caridad 17.8 H (11.5-15.5) % Plt Count 120 L (140-440) K/uL Neut % (Auto) 71.0 (42.0-72.0) % Lymph % (Auto) 13.0 L (20-44) % [place] % (Auto) 14.7 H (0.0-11.0) % Eos % (Auto) 0.0 (0.0-7.0) % Baso % (Auto) 0.7 (0.0-3.0) % Neut # (Auto) 4.79 (1.7-7.0) K/uL Lymph # (Auto) 0.90 (0.90-2.90) K/uL [place] # (Auto) 1.00 H (0.00-0.90) K/UL Eos # (Auto) 0.00 (0.00-0.50) K/uL Baso # (Auto) 0.05 (0.00-0.30) K/uL INR (0.91-1.10) APTT (23-33) Seconds Sodium (135-149) mmol/L Potassium (3.6-5.1) mmol/L Chloride (96-114) mmol/L Carbon Dioxide (20-32) mmol/L BUN (5-24) mg/dL Creatinine (0.5-1.5) mg/dL Estimated GFR ml/min Glucose (60-115) mg/dL Lactate (0.5-1.9) mmol/L Calcium (8.4-10.6) mg/dL Total Bilirubin (0.1-1.5) mg/dL AST (12-35) U/L ALT (4-50) U/L Alkaline Phosphatase (40-150) U/L Ammonia (13.1-30.0) umol/L Total Protein (6.0-8.3) g/dL Albumin (3.3-5.0) g/dL Urine Opiates Screen Negative (Negative) Ur Oxycodone Screen Negative (Negative) Urine Methadone Screen Negative (Negative) Ur Propoxyphene Screen Negative (Negative) Acetaminophen (10.0-30.0) ug/mL Ur Barbiturates Screen Negative (Negative) U Tricyclic Antidepress Negative (Negative) Ur Phencyclidine Scrn Negative (Negative) Ur Amphetamines Screen Negative (Negative) U Methamphetamines Scrn Negative (Negative) U Benzodiazepines Scrn POSITIVE A* (Negative) Urine Cocaine Screen Negative (Negative) U Marijuana (THC) Screen Negative (Negative) Ur Drug Screen Comment See Note Ethyl Alcohol (0.01-0.03) % SARS-CoV-2 (PCR) Negative SARS-CoV-2 (Negative) Influenza Type A (PCR) (Negative) Influenza Type B (PCR) (Negative) RSV (PCR) (Negative) Group A Strep DNA (Not Detectd) 10/16/22 10/16/22 10/16/22 Range/Units 14:14 14:14 14:14 WBC (4.50-11.00) K/uL RBC (4.30-5.90) m/uL Hgb (13.5-17.5) gm/dL Hct (37.0-53.0) % MCV (80-100) fL MCH (26-34) pg MCHC (32-36) gm/dL RDW Coeff of Caridad (11.5-15.5) % Plt Count (140-440) K/uL Neut % (Auto) (42.0-72.0) % Lymph % (Auto) (20-44) % [place] % (Auto) (0.0-11.0) % Eos % (Auto) (0.0-7.0) % Baso % (Auto) (0.0-3.0) % Neut # (Auto) (1.7-7.0) K/uL Lymph # (Auto) (0.90-2.90) K/uL [place] # (Auto) (0.00-0.90) K/UL Eos # (Auto) (0.00-0.50) K/uL Baso # (Auto) (0.00-0.30) K/uL INR 1.31 H (0.91-1.10) APTT 44 H (23-33) Seconds Sodium 137 (135-149) mmol/L Potassium 4.0 (3.6-5.1) mmol/L Chloride 103 (96-114) mmol/L Carbon Dioxide 22 (20-32) mmol/L BUN 9 (5-24) mg/dL Creatinine 0.6 (0.5-1.5) mg/dL Estimated GFR 118 ml/min Glucose 155 H (60-115) mg/dL Lactate 2.4 H (0.5-1.9) mmol/L Calcium 8.3 L (8.4-10.6) mg/dL Total Bilirubin 3.3 H (0.1-1.5) mg/dL AST 60 H (12-35) U/L ALT 32 (4-50) U/L Alkaline Phosphatase 221 H (40-150) U/L Ammonia (13.1-30.0) umol/L Total Protein 7.8 (6.0-8.3) g/dL Albumin 4.3 (3.3-5.0) g/dL Urine Opiates Screen (Negative) Ur Oxycodone Screen (Negative) Urine Methadone Screen (Negative) Ur Propoxyphene Screen (Negative) Acetaminophen < 10.0 L (10.0-30.0) ug/mL Ur Barbiturates Screen (Negative) U Tricyclic Antidepress (Negative) Ur Phencyclidine Scrn (Negative) Ur Amphetamines Screen (Negative) U Methamphetamines Scrn (Negative) U Benzodiazepines Scrn (Negative) Urine Cocaine Screen (Negative) U Marijuana (THC) Screen (Negative) Ur Drug Screen Comment Ethyl Alcohol 0.17 H (0.01-0.03) % SARS-CoV-2 (PCR) (Negative) Influenza Type A (PCR) (Negative) Influenza Type B (PCR) (Negative) RSV (PCR) (Negative) Group A Strep DNA (Not Detectd) 10/16/22 10/16/22 10/17/22 Range/Units 14:14 20:07 14:22 WBC (4.50-11.00) K/uL RBC (4.30-5.90) m/uL Hgb (13.5-17.5) gm/dL Hct (37.0-53.0) % MCV (80-100) fL MCH (26-34) pg MCHC (32-36) gm/dL RDW Coeff of Caridad (11.5-15.5) % Plt Count (140-440) K/uL Neut % (Auto) (42.0-72.0) % Lymph % (Auto) (20-44) % [place] % (Auto) (0.0-11.0) % Eos % (Auto) (0.0-7.0) % Baso % (Auto) (0.0-3.0) % Neut # (Auto) (1.7-7.0) K/uL Lymph # (Auto) (0.90-2.90) K/uL [place] # (Auto) (0.00-0.90) K/UL Eos # (Auto) (0.00-0.50) K/uL Baso # (Auto) (0.00-0.30) K/uL INR (0.91-1.10) APTT (23-33) Seconds Sodium (135-149) mmol/L Potassium (3.6-5.1) mmol/L Chloride (96-114) mmol/L Carbon Dioxide (20-32) mmol/L BUN (5-24) mg/dL Creatinine (0.5-1.5) mg/dL Estimated GFR ml/min Glucose (60-115) mg/dL Lactate (0.5-1.9) mmol/L Calcium (8.4-10.6) mg/dL Total Bilirubin (0.1-1.5) mg/dL AST (12-35) U/L ALT (4-50) U/L Alkaline Phosphatase (40-150) U/L Ammonia < 9.0 L (13.1-30.0) umol/L Total Protein (6.0-8.3) g/dL Albumin (3.3-5.0) g/dL Urine Opiates Screen (Negative) Ur Oxycodone Screen (Negative) Urine Methadone Screen (Negative) Ur Propoxyphene Screen (Negative) Acetaminophen (10.0-30.0) ug/mL Ur Barbiturates Screen (Negative) U Tricyclic Antidepress (Negative) Ur Phencyclidine Scrn (Negative) Ur Amphetamines Screen (Negative) U Methamphetamines Scrn (Negative) U Benzodiazepines Scrn (Negative) Urine Cocaine Screen (Negative) U Marijuana (THC) Screen (Negative) Ur Drug Screen Comment Ethyl Alcohol 0.06 H (0.01-0.03) % SARS-CoV-2 (PCR) Negative SARS-CoV-2 (Negative) Influenza Type A (PCR) POSITIVE PCR FLU A A (Negative) Influenza Type B (PCR) Negative PCR FLU B (Negative) RSV (PCR) Negative PCR RSV (Negative) Group A Strep DNA (Not Detectd) 10/17/22 10/17/22 10/17/22 Range/Units 14:22 14:45 14:45 WBC 2.73 L (4.50-11.00) K/uL RBC 4.14 L (4.30-5.90) m/uL Hgb 10.5 L (13.5-17.5) gm/dL Hct 33.1 L (37.0-53.0) % MCV 80 (80-100) fL MCH 25 L (26-34) pg MCHC 32 (32-36) gm/dL RDW Coeff of Caridad 17.8 H (11.5-15.5) % Plt Count 79 L (140-440) K/uL Neut % (Auto) 58.6 (42.0-72.0) % Lymph % (Auto) 18.7 L (20-44) % [place] % (Auto) 20.9 H (0.0-11.0) % Eos % (Auto) 0.0 (0.0-7.0) % Baso % (Auto) 0.7 (0.0-3.0) % Neut # (Auto) 1.60 L (1.7-7.0) K/uL Lymph # (Auto) 0.50 L (0.90-2.90) K/uL [place] # (Auto) 0.60 (0.00-0.90) K/UL Eos # (Auto) 0.00 (0.00-0.50) K/uL Baso # (Auto) 0.00 (0.00-0.30) K/uL INR (0.91-1.10) APTT (23-33) Seconds Sodium (135-149) mmol/L Potassium (3.6-5.1) mmol/L Chloride (96-114) mmol/L Carbon Dioxide (20-32) mmol/L BUN (5-24) mg/dL Creatinine (0.5-1.5) mg/dL Estimated GFR ml/min Glucose (60-115) mg/dL Lactate 1.1 (0.5-1.9) mmol/L Calcium (8.4-10.6) mg/dL Total Bilirubin (0.1-1.5) mg/dL AST (12-35) U/L ALT (4-50) U/L Alkaline Phosphatase (40-150) U/L Ammonia (13.1-30.0) umol/L Total Protein (6.0-8.3) g/dL Albumin (3.3-5.0) g/dL Urine Opiates Screen (Negative) Ur Oxycodone Screen (Negative) Urine Methadone Screen (Negative) Ur Propoxyphene Screen (Negative) Acetaminophen (10.0-30.0) ug/mL Ur Barbiturates Screen (Negative) U Tricyclic Antidepress (Negative) Ur Phencyclidine Scrn (Negative) Ur Amphetamines Screen (Negative) U Methamphetamines Scrn (Negative) U Benzodiazepines Scrn (Negative) Urine Cocaine Screen (Negative) U Marijuana (THC) Screen (Negative) Ur Drug Screen Comment Ethyl Alcohol (0.01-0.03) % SARS-CoV-2 (PCR) (Negative) Influenza Type A (PCR) (Negative) Influenza Type B (PCR) (Negative) RSV (PCR) (Negative) Group A Strep DNA NOT DETECTED (Not Detectd) <Amberly Franz MD - Last Filed: 10/16/22 20:01> Lab Results 10/16/22 10/16/22 10/16/22 Range/Units 09:20 13:49 14:14 WBC 6.75 (4.50-11.00) K/uL RBC 4.75 (4.30-5.90) m/uL Hgb 12.1 L (13.5-17.5) gm/dL Hct 38.4 (37.0-53.0) % MCV 81 (80-100) fL MCH 26 (26-34) pg MCHC 32 (32-36) gm/dL RDW Coeff of Caridad 17.8 H (11.5-15.5) % Plt Count 120 L (140-440) K/uL Neut % (Auto) 71.0 (42.0-72.0) % Lymph % (Auto) 13.0 L (20-44) % [place] % (Auto) 14.7 H (0.0-11.0) % Eos % (Auto) 0.0 (0.0-7.0) % Baso % (Auto) 0.7 (0.0-3.0) % Neut # (Auto) 4.79 (1.7-7.0) K/uL Lymph # (Auto) 0.90 (0.90-2.90) K/uL [place] # (Auto) 1.00 H (0.00-0.90) K/UL Eos # (Auto) 0.00 (0.00-0.50) K/uL Baso # (Auto) 0.05 (0.00-0.30) K/uL INR (0.91-1.10) APTT (23-33) Seconds Sodium (135-149) mmol/L Potassium (3.6-5.1) mmol/L Chloride (96-114) mmol/L Carbon Dioxide (20-32) mmol/L BUN (5-24) mg/dL Creatinine (0.5-1.5) mg/dL Estimated GFR ml/min Glucose (60-115) mg/dL Lactate (0.5-1.9) mmol/L Calcium (8.4-10.6) mg/dL Total Bilirubin (0.1-1.5) mg/dL AST (12-35) U/L ALT (4-50) U/L Alkaline Phosphatase (40-150) U/L Ammonia (13.1-30.0) umol/L Total Protein (6.0-8.3) g/dL Albumin (3.3-5.0) g/dL Urine Opiates Screen Negative (Negative) Ur Oxycodone Screen Negative (Negative) Urine Methadone Screen Negative (Negative) Ur Propoxyphene Screen Negative (Negative) Acetaminophen (10.0-30.0) ug/mL Ur Barbiturates Screen Negative (Negative) U Tricyclic Antidepress Negative (Negative) Ur Phencyclidine Scrn Negative (Negative) Ur Amphetamines Screen Negative (Negative) U Methamphetamines Scrn Negative (Negative) U Benzodiazepines Scrn POSITIVE A* (Negative) Urine Cocaine Screen Negative (Negative) U Marijuana (THC) Screen Negative (Negative) Ur Drug Screen Comment See Note Ethyl Alcohol (0.01-0.03) % SARS-CoV-2 (PCR) Negative SARS-CoV-2 (Negative) Influenza Type A (PCR) (Negative) Influenza Type B (PCR) (Negative) RSV (PCR) (Negative) Group A Strep DNA (Not Detectd) 10/16/22 10/16/22 10/16/22 Range/Units 14:14 14:14 14:14 WBC (4.50-11.00) K/uL RBC (4.30-5.90) m/uL Hgb (13.5-17.5) gm/dL Hct (37.0-53.0) % MCV (80-100) fL MCH (26-34) pg MCHC (32-36) gm/dL RDW Coeff of Caridad (11.5-15.5) % Plt Count (140-440) K/uL Neut % (Auto) (42.0-72.0) % Lymph % (Auto) (20-44) % [place] % (Auto) (0.0-11.0) % Eos % (Auto) (0.0-7.0) % Baso % (Auto) (0.0-3.0) % Neut # (Auto) (1.7-7.0) K/uL Lymph # (Auto) (0.90-2.90) K/uL [place] # (Auto) (0.00-0.90) K/UL Eos # (Auto) (0.00-0.50) K/uL Baso # (Auto) (0.00-0.30) K/uL INR 1.31 H (0.91-1.10) APTT 44 H (23-33) Seconds Sodium 137 (135-149) mmol/L Potassium 4.0 (3.6-5.1) mmol/L Chloride 103 (96-114) mmol/L Carbon Dioxide 22 (20-32) mmol/L BUN 9 (5-24) mg/dL Creatinine 0.6 (0.5-1.5) mg/dL Estimated GFR 118 ml/min Glucose 155 H (60-115) mg/dL Lactate 2.4 H (0.5-1.9) mmol/L Calcium 8.3 L (8.4-10.6) mg/dL Total Bilirubin 3.3 H (0.1-1.5) mg/dL AST 60 H (12-35) U/L ALT 32 (4-50) U/L Alkaline Phosphatase 221 H (40-150) U/L Ammonia (13.1-30.0) umol/L Total Protein 7.8 (6.0-8.3) g/dL Albumin 4.3 (3.3-5.0) g/dL Urine Opiates Screen (Negative) Ur Oxycodone Screen (Negative) Urine Methadone Screen (Negative) Ur Propoxyphene Screen (Negative) Acetaminophen < 10.0 L (10.0-30.0) ug/mL Ur Barbiturates Screen (Negative) U Tricyclic Antidepress (Negative) Ur Phencyclidine Scrn (Negative) Ur Amphetamines Screen (Negative) U Methamphetamines Scrn (Negative) U Benzodiazepines Scrn (Negative) Urine Cocaine Screen (Negative) U Marijuana (THC) Screen (Negative) Ur Drug Screen Comment Ethyl Alcohol 0.17 H (0.01-0.03) % SARS-CoV-2 (PCR) (Negative) Influenza Type A (PCR) (Negative) Influenza Type B (PCR) (Negative) RSV (PCR) (Negative) Group A Strep DNA (Not Detectd) 10/16/22 10/16/22 10/17/22 Range/Units 14:14 20:07 14:22 WBC (4.50-11.00) K/uL RBC (4.30-5.90) m/uL Hgb (13.5-17.5) gm/dL Hct (37.0-53.0) % MCV (80-100) fL MCH (26-34) pg MCHC (32-36) gm/dL RDW Coeff of Caridad (11.5-15.5) % Plt Count (140-440) K/uL Neut % (Auto) (42.0-72.0) % Lymph % (Auto) (20-44) % [place] % (Auto) (0.0-11.0) % Eos % (Auto) (0.0-7.0) % Baso % (Auto) (0.0-3.0) % Neut # (Auto) (1.7-7.0) K/uL Lymph # (Auto) (0.90-2.90) K/uL [place] # (Auto) (0.00-0.90) K/UL Eos # (Auto) (0.00-0.50) K/uL Baso # (Auto) (0.00-0.30) K/uL INR (0.91-1.10) APTT (23-33) Seconds Sodium (135-149) mmol/L Potassium (3.6-5.1) mmol/L Chloride (96-114) mmol/L Carbon Dioxide (20-32) mmol/L BUN (5-24) mg/dL Creatinine (0.5-1.5) mg/dL Estimated GFR ml/min Glucose (60-115) mg/dL Lactate (0.5-1.9) mmol/L Calcium (8.4-10.6) mg/dL Total Bilirubin (0.1-1.5) mg/dL AST (12-35) U/L ALT (4-50) U/L Alkaline Phosphatase (40-150) U/L Ammonia < 9.0 L (13.1-30.0) umol/L Total Protein (6.0-8.3) g/dL Albumin (3.3-5.0) g/dL Urine Opiates Screen (Negative) Ur Oxycodone Screen (Negative) Urine Methadone Screen (Negative) Ur Propoxyphene Screen (Negative) Acetaminophen (10.0-30.0) ug/mL Ur Barbiturates Screen (Negative) U Tricyclic Antidepress (Negative) Ur Phencyclidine Scrn (Negative) Ur Amphetamines Screen (Negative) U Methamphetamines Scrn (Negative) U Benzodiazepines Scrn (Negative) Urine Cocaine Screen (Negative) U Marijuana (THC) Screen (Negative) Ur Drug Screen Comment Ethyl Alcohol 0.06 H (0.01-0.03) % SARS-CoV-2 (PCR) Negative SARS-CoV-2 (Negative) Influenza Type A (PCR) POSITIVE PCR FLU A A (Negative) Influenza Type B (PCR) Negative PCR FLU B (Negative) RSV (PCR) Negative PCR RSV (Negative) Group A Strep DNA (Not Detectd) 10/17/22 10/17/22 10/17/22 Range/Units 14:22 14:45 14:45 WBC 2.73 L (4.50-11.00) K/uL RBC 4.14 L (4.30-5.90) m/uL Hgb 10.5 L (13.5-17.5) gm/dL Hct 33.1 L (37.0-53.0) % MCV 80 (80-100) fL MCH 25 L (26-34) pg MCHC 32 (32-36) gm/dL RDW Coeff of Caridad 17.8 H (11.5-15.5) % Plt Count 79 L (140-440) K/uL Neut % (Auto) 58.6 (42.0-72.0) % Lymph % (Auto) 18.7 L (20-44) % [place] % (Auto) 20.9 H (0.0-11.0) % Eos % (Auto) 0.0 (0.0-7.0) % Baso % (Auto) 0.7 (0.0-3.0) % Neut # (Auto) 1.60 L (1.7-7.0) K/uL Lymph # (Auto) 0.50 L (0.90-2.90) K/uL [place] # (Auto) 0.60 (0.00-0.90) K/UL Eos # (Auto) 0.00 (0.00-0.50) K/uL Baso # (Auto) 0.00 (0.00-0.30) K/uL INR (0.91-1.10) APTT (23-33) Seconds Sodium (135-149) mmol/L Potassium (3.6-5.1) mmol/L Chloride (96-114) mmol/L Carbon Dioxide (20-32) mmol/L BUN (5-24) mg/dL Creatinine (0.5-1.5) mg/dL Estimated GFR ml/min Glucose (60-115) mg/dL Lactate 1.1 (0.5-1.9) mmol/L Calcium (8.4-10.6) mg/dL Total Bilirubin (0.1-1.5) mg/dL AST (12-35) U/L ALT (4-50) U/L Alkaline Phosphatase (40-150) U/L Ammonia (13.1-30.0) umol/L Total Protein (6.0-8.3) g/dL Albumin (3.3-5.0) g/dL Urine Opiates Screen (Negative) Ur Oxycodone Screen (Negative) Urine Methadone Screen (Negative) Ur Propoxyphene Screen (Negative) Acetaminophen (10.0-30.0) ug/mL Ur Barbiturates Screen (Negative) U Tricyclic Antidepress (Negative) Ur Phencyclidine Scrn (Negative) Ur Amphetamines Screen (Negative) U Methamphetamines Scrn (Negative) U Benzodiazepines Scrn (Negative) Urine Cocaine Screen (Negative) U Marijuana (THC) Screen (Negative) Ur Drug Screen Comment Ethyl Alcohol (0.01-0.03) % SARS-CoV-2 (PCR) (Negative) Influenza Type A (PCR) (Negative) Influenza Type B (PCR) (Negative) RSV (PCR) (Negative) Group A Strep DNA NOT DETECTED (Not Detectd) <Amberly Tapia MD - Last Filed: 10/17/22 15:49> Lab Results 10/16/22 10/16/22 10/16/22 Range/Units 09:20 13:49 14:14 WBC 6.75 (4.50-11.00) K/uL RBC 4.75 (4.30-5.90) m/uL Hgb 12.1 L (13.5-17.5) gm/dL Hct 38.4 (37.0-53.0) % MCV 81 (80-100) fL MCH 26 (26-34) pg MCHC 32 (32-36) gm/dL RDW Coeff of Caridad 17.8 H (11.5-15.5) % Plt Count 120 L (140-440) K/uL Neut % (Auto) 71.0 (42.0-72.0) % Lymph % (Auto) 13.0 L (20-44) % [place] % (Auto) 14.7 H (0.0-11.0) % Eos % (Auto) 0.0 (0.0-7.0) % Baso % (Auto) 0.7 (0.0-3.0) % Neut # (Auto) 4.79 (1.7-7.0) K/uL Lymph # (Auto) 0.90 (0.90-2.90) K/uL [place] # (Auto) 1.00 H (0.00-0.90) K/UL Eos # (Auto) 0.00 (0.00-0.50) K/uL Baso # (Auto) 0.05 (0.00-0.30) K/uL INR (0.91-1.10) APTT (23-33) Seconds Sodium (135-149) mmol/L Potassium (3.6-5.1) mmol/L Chloride (96-114) mmol/L Carbon Dioxide (20-32) mmol/L BUN (5-24) mg/dL Creatinine (0.5-1.5) mg/dL Estimated GFR ml/min Glucose (60-115) mg/dL Lactate (0.5-1.9) mmol/L Calcium (8.4-10.6) mg/dL Total Bilirubin (0.1-1.5) mg/dL AST (12-35) U/L ALT (4-50) U/L Alkaline Phosphatase (40-150) U/L Ammonia (13.1-30.0) umol/L Total Protein (6.0-8.3) g/dL Albumin (3.3-5.0) g/dL Urine Opiates Screen Negative (Negative) Ur Oxycodone Screen Negative (Negative) Urine Methadone Screen Negative (Negative) Ur Propoxyphene Screen Negative (Negative) Acetaminophen (10.0-30.0) ug/mL Ur Barbiturates Screen Negative (Negative) U Tricyclic Antidepress Negative (Negative) Ur Phencyclidine Scrn Negative (Negative) Ur Amphetamines Screen Negative (Negative) U Methamphetamines Scrn Negative (Negative) U Benzodiazepines Scrn POSITIVE A* (Negative) Urine Cocaine Screen Negative (Negative) U Marijuana (THC) Screen Negative (Negative) Ur Drug Screen Comment See Note Ethyl Alcohol (0.01-0.03) % SARS-CoV-2 (PCR) Negative SARS-CoV-2 (Negative) Influenza Type A (PCR) (Negative) Influenza Type B (PCR) (Negative) RSV (PCR) (Negative) Group A Strep DNA (Not Detectd) 10/16/22 10/16/22 10/16/22 Range/Units 14:14 14:14 14:14 WBC (4.50-11.00) K/uL RBC (4.30-5.90) m/uL Hgb (13.5-17.5) gm/dL Hct (37.0-53.0) % MCV (80-100) fL MCH (26-34) pg MCHC (32-36) gm/dL RDW Coeff of Caridad (11.5-15.5) % Plt Count (140-440) K/uL Neut % (Auto) (42.0-72.0) % Lymph % (Auto) (20-44) % [place] % (Auto) (0.0-11.0) % Eos % (Auto) (0.0-7.0) % Baso % (Auto) (0.0-3.0) % Neut # (Auto) (1.7-7.0) K/uL Lymph # (Auto) (0.90-2.90) K/uL [place] # (Auto) (0.00-0.90) K/UL Eos # (Auto) (0.00-0.50) K/uL Baso # (Auto) (0.00-0.30) K/uL INR 1.31 H (0.91-1.10) APTT 44 H (23-33) Seconds Sodium 137 (135-149) mmol/L Potassium 4.0 (3.6-5.1) mmol/L Chloride 103 (96-114) mmol/L Carbon Dioxide 22 (20-32) mmol/L BUN 9 (5-24) mg/dL Creatinine 0.6 (0.5-1.5) mg/dL Estimated GFR 118 ml/min Glucose 155 H (60-115) mg/dL Lactate 2.4 H (0.5-1.9) mmol/L Calcium 8.3 L (8.4-10.6) mg/dL Total Bilirubin 3.3 H (0.1-1.5) mg/dL AST 60 H (12-35) U/L ALT 32 (4-50) U/L Alkaline Phosphatase 221 H (40-150) U/L Ammonia (13.1-30.0) umol/L Total Protein 7.8 (6.0-8.3) g/dL Albumin 4.3 (3.3-5.0) g/dL Urine Opiates Screen (Negative) Ur Oxycodone Screen (Negative) Urine Methadone Screen (Negative) Ur Propoxyphene Screen (Negative) Acetaminophen < 10.0 L (10.0-30.0) ug/mL Ur Barbiturates Screen (Negative) U Tricyclic Antidepress (Negative) Ur Phencyclidine Scrn (Negative) Ur Amphetamines Screen (Negative) U Methamphetamines Scrn (Negative) U Benzodiazepines Scrn (Negative) Urine Cocaine Screen (Negative) U Marijuana (THC) Screen (Negative) Ur Drug Screen Comment Ethyl Alcohol 0.17 H (0.01-0.03) % SARS-CoV-2 (PCR) (Negative) Influenza Type A (PCR) (Negative) Influenza Type B (PCR) (Negative) RSV (PCR) (Negative) Group A Strep DNA (Not Detectd) 10/16/22 10/16/22 10/17/22 Range/Units 14:14 20:07 14:22 WBC (4.50-11.00) K/uL RBC (4.30-5.90) m/uL Hgb (13.5-17.5) gm/dL Hct (37.0-53.0) % MCV (80-100) fL MCH (26-34) pg MCHC (32-36) gm/dL RDW Coeff of Caridad (11.5-15.5) % Plt Count (140-440) K/uL Neut % (Auto) (42.0-72.0) % Lymph % (Auto) (20-44) % [place] % (Auto) (0.0-11.0) % Eos % (Auto) (0.0-7.0) % Baso % (Auto) (0.0-3.0) % Neut # (Auto) (1.7-7.0) K/uL Lymph # (Auto) (0.90-2.90) K/uL [place] # (Auto) (0.00-0.90) K/UL Eos # (Auto) (0.00-0.50) K/uL Baso # (Auto) (0.00-0.30) K/uL INR (0.91-1.10) APTT (23-33) Seconds Sodium (135-149) mmol/L Potassium (3.6-5.1) mmol/L Chloride (96-114) mmol/L Carbon Dioxide (20-32) mmol/L BUN (5-24) mg/dL Creatinine (0.5-1.5) mg/dL Estimated GFR ml/min Glucose (60-115) mg/dL Lactate (0.5-1.9) mmol/L Calcium (8.4-10.6) mg/dL Total Bilirubin (0.1-1.5) mg/dL AST (12-35) U/L ALT (4-50) U/L Alkaline Phosphatase (40-150) U/L Ammonia < 9.0 L (13.1-30.0) umol/L Total Protein (6.0-8.3) g/dL Albumin (3.3-5.0) g/dL Urine Opiates Screen (Negative) Ur Oxycodone Screen (Negative) Urine Methadone Screen (Negative) Ur Propoxyphene Screen (Negative) Acetaminophen (10.0-30.0) ug/mL Ur Barbiturates Screen (Negative) U Tricyclic Antidepress (Negative) Ur Phencyclidine Scrn (Negative) Ur Amphetamines Screen (Negative) U Methamphetamines Scrn (Negative) U Benzodiazepines Scrn (Negative) Urine Cocaine Screen (Negative) U Marijuana (THC) Screen (Negative) Ur Drug Screen Comment Ethyl Alcohol 0.06 H (0.01-0.03) % SARS-CoV-2 (PCR) Negative SARS-CoV-2 (Negative) Influenza Type A (PCR) POSITIVE PCR FLU A A (Negative) Influenza Type B (PCR) Negative PCR FLU B (Negative) RSV (PCR) Negative PCR RSV (Negative) Group A Strep DNA (Not Detectd) 10/17/22 10/17/22 10/17/22 Range/Units 14:22 14:45 14:45 WBC 2.73 L (4.50-11.00) K/uL RBC 4.14 L (4.30-5.90) m/uL Hgb 10.5 L (13.5-17.5) gm/dL Hct 33.1 L (37.0-53.0) % MCV 80 (80-100) fL MCH 25 L (26-34) pg MCHC 32 (32-36) gm/dL RDW Coeff of Caridad 17.8 H (11.5-15.5) % Plt Count 79 L (140-440) K/uL Neut % (Auto) 58.6 (42.0-72.0) % Lymph % (Auto) 18.7 L (20-44) % [place] % (Auto) 20.9 H (0.0-11.0) % Eos % (Auto) 0.0 (0.0-7.0) % Baso % (Auto) 0.7 (0.0-3.0) % Neut # (Auto) 1.60 L (1.7-7.0) K/uL Lymph # (Auto) 0.50 L (0.90-2.90) K/uL [place] # (Auto) 0.60 (0.00-0.90) K/UL Eos # (Auto) 0.00 (0.00-0.50) K/uL Baso # (Auto) 0.00 (0.00-0.30) K/uL INR (0.91-1.10) APTT (23-33) Seconds Sodium (135-149) mmol/L Potassium (3.6-5.1) mmol/L Chloride (96-114) mmol/L Carbon Dioxide (20-32) mmol/L BUN (5-24) mg/dL Creatinine (0.5-1.5) mg/dL Estimated GFR ml/min Glucose (60-115) mg/dL Lactate 1.1 (0.5-1.9) mmol/L Calcium (8.4-10.6) mg/dL Total Bilirubin (0.1-1.5) mg/dL AST (12-35) U/L ALT (4-50) U/L Alkaline Phosphatase (40-150) U/L Ammonia (13.1-30.0) umol/L Total Protein (6.0-8.3) g/dL Albumin (3.3-5.0) g/dL Urine Opiates Screen (Negative) Ur Oxycodone Screen (Negative) Urine Methadone Screen (Negative) Ur Propoxyphene Screen (Negative) Acetaminophen (10.0-30.0) ug/mL Ur Barbiturates Screen (Negative) U Tricyclic Antidepress (Negative) Ur Phencyclidine Scrn (Negative) Ur Amphetamines Screen (Negative) U Methamphetamines Scrn (Negative) U Benzodiazepines Scrn (Negative) Urine Cocaine Screen (Negative) U Marijuana (THC) Screen (Negative) Ur Drug Screen Comment Ethyl Alcohol (0.01-0.03) % SARS-CoV-2 (PCR) (Negative) Influenza Type A (PCR) (Negative) Influenza Type B (PCR) (Negative) RSV (PCR) (Negative) Group A Strep DNA NOT DETECTED (Not Detectd) <Joss Del Castillo MD - Last Filed: 10/18/22 17:01> Critical Care Time Critical Care Time Critical Care Time: No <Amberly Franz MD - Last Filed: 10/16/22 20:01> Discharge Plan Discharge Clinical Impression: Depression with suicidal ideation, Cirrhosis, alcoholic, Influenza A <Amberly Franz MD - Last Filed: 10/16/22 20:01> Patient Disposition: Home w/ Parent or Adult <Amberly Franz MD - Last Filed: 10/16/22 20:01> Condition: Improved <Amberly Franz MD - Last Filed: 10/16/22 20:01> Additional Instructions: Follow-up the primary physician and therapist or psychiatrist as scheduled and needed. Return if worsening symptoms occur. <Amberly Franz MD - Last Filed: 10/16/22 20:01> Prescriptions: No Action quetiapine 25 mg tablet 25 - 50 mg PO BID Label Comments: 25 MG IN AM 50 MG IN PM (DME) OneTouch Ultra Test Strip MISCELLANEOUS Label Comments: USE DIRECTED BY DOCTOR glimepiride 2 mg tablet 2 mg PO DAILY Label Comments: TAKE 1 TABLET BY MOUTH ONCE DAILY WITH A MEAL. vitamin A 10,000 unit capsule 10,000 unit PO DAILY Label Comments: TAKE 1 CAPSULE BY MOUTH EVERY DAY pantoprazole 40 mg tablet,delayed release (DR/EC) 40 mg PO DAILY Label Comments: TAKE 1 TABLET BY MOUTH EVERY DAY escitalopram oxalate 20 mg tablet 20 mg PO DAILY Label Comments: TAKE 1 TABLET BY MOUTH EVERY DAY cholecalciferol (vitamin D3) 1,250 mcg (50,000 unit) capsule 5,000 mcg PO .WEEKLY Label Comments: TAKE 1 CAPSULE BY MOUTH ONE DAY A WEEK bupropion HCl 150 mg tablet extended release 24 hr 450 mg PO DAILY furosemide 20 mg tablet 20 mg PO DAILY Qty: 3 0RF hydroxyzine HCl 50 mg tablet 50 mg PO TID PRN lithium carbonate 300 mg tablet 300 mg PO HS lithium carbonate 450 mg tablet extended release 450 mg PO HS multivitamin [Daily Multi-Vitamin] Tablet 1 tab PO DAILY spironolactone 50 mg tablet 50 mg PO DAILY Label Comments: TAKE 1 TABLET BY MOUTH EVERY DAY <Amberly Franz MD - Last Filed: 10/16/22 20:01> Follow Up/Referrals: Hanna Miller MD [Primary Care Provider] - <Amberly Franz MD - Last Filed: 10/16/22 20:01> Stand Alone [facility]: [facility] <Amberly Franz MD - Last Filed: 10/16/22 20:01>
[2022-10-16 14:21] LABS: Lactate* 2.4 mmol/L (0.5-1.9)
[2022-10-16 14:27] LABS: Basophils Absolute Auto 0.05 K/uL (0.00-0.30); Basophils Percent Auto 0.7 % (0.0-3.0); Hematocrit 38.4 % (37.0-53.0); Hemoglobin* 12.1 gm/dL (13.5-17.5); Immature Granulocytes Abs Auto 0.04 K/uL (0.00-0.30); Immature Granulocytes Pct Auto 0.6 %; Mean Corpuscular HGB Conc 32 gm/dL (32-36); Mean Corpuscular Hemoglobin 26 pg (26-34); Mean Corpuscular Volume 81 fL (80-100); Monocytes Percent Auto 14.7 % (0.0-11.0); Neutrophils Absolute Auto 4.79 K/uL (1.7-7.0); Platelet Count* 120 K/uL (140-440); RDW Coefficient of Variation % 17.8 % (11.5-15.5); Red Blood Count 4.75 m/uL (4.30-5.90); White Blood Count* 6.75 K/uL (4.50-11.00)
[2022-10-16 14:28] LABS: Slide Review Reflex No
[2022-10-16 14:41] LABS: Albumin* 4.3 g/dL (3.3-5.0); Chloride* 103 mmol/L (96-114)
[2022-10-16 14:42] LABS: Sodium* 137 mmol/L (135-149)
[2022-10-16 14:44] LABS: Alanine Aminotransferase* 32 U/L (4-50); Alkaline Phosphatase* 221 U/L (40-150); Aspartate Amino Transferase* 60 U/L (12-35); Bilirubin Total* 3.3 mg/dL (0.1-1.5); Blood Urea Nitrogen* 9 mg/dL (5-24); Carbon Dioxide* 22 mmol/L (20-32); Creatinine* 0.6 mg/dL (0.5-1.5); Estimated Glomerular Filt Rate 118 ml/min; Glucose* 155 mg/dL (60-115); Total Protein* 7.8 g/dL (6.0-8.3)
[2022-10-16 14:45] LABS: Calcium* 8.3 mg/dL (8.4-10.6); Ethanol* 0.17 % (0.01-0.03); INR 1.31 (0.91-1.10)
[2022-10-16 14:46] LABS: Partial Thromboplastin Time* 44 Seconds (23-33)
[2022-10-16 14:48] LABS: Acetaminophen* < 10.0 ug/mL (10.0-30.0)
[2022-10-16 15:00] LABS: SARS PCR* Negative SARS-CoV-2 (Negative)
[2022-10-16 15:01] LABS: Ammonia* < 9.0 umol/L (13.1-30.0)
--- NOTE | 2022-10-16 15:28 | ED.NURSE ---
DEC request placed in queue.
--- NOTE | 2022-10-16 15:53 | ED.NURSE ---
Provided meal to patient. Patient cooperative and appropriate.
--- NOTE | 2022-10-16 16:56 | ED.NURSE ---
Patient participating with DEC.
[2022-10-16 19:59] VITALS: BP 117/66; PULSE 107; RESP 22; O2SAT 95
[2022-10-16] MEDS: LORazepam 1 MG TABLET PO (20:28)
--- NOTE | 2022-10-16 20:34 | ED.NURSE ---
Patient noted to have tremors in both arms. Does endorse light sensitivity, nausea and and headache. CIWA score 12, MD notified and Ativan 1mg ordered.
[2022-10-16 20:38] LABS: Ethanol* 0.06 % (0.01-0.03)
[2022-10-16 21:36] VITALS: BP 106/52; PULSE 105; RESP 16; O2SAT 95
--- NOTE | 2022-10-16 22:24 | ED.NURSE ---
Faxed patient info to [place] for review.
--- NOTE | 2022-10-17 00:11 | ED.NURSE ---
On arrival patient requested his cell phone to be charged. Phone was brought to nursing station and two different chargers where tried but phone would not accept charge.
[2022-10-17] MEDS: hydrOXYzine pamoate 25 MG CAPSULE 50 MG PO ×3 (06:08→20:55)
[2022-10-17 06:14] VITALS: BP 108/69; PULSE 100; RESP 16; TEMP 37.8; O2SAT 95
[2022-10-17] MEDS: OMEPRAZOLE 20 MG CAPSULE DR 40 MG PO (09:17)
[2022-10-17 09:24] VITALS: BP 140/78; PULSE 99; TEMP 37.6; O2SAT 93
[2022-10-17] MEDS: buPROPion XL 150 MG TABLET 300 MG PO (09:48)
[2022-10-17] MEDS: FUROSEMIDE 20 MG TABLET PO (09:48)
[2022-10-17] MEDS: GLIMEPIRIDE 1 MG TABLET 2 MG PO (09:48)
[2022-10-17] MEDS: ESCITALOPRAM 10 MG TABLET 20 MG PO (09:48)
[2022-10-17] MEDS: SPIRONOLACTONE 25 MG TABLET 50 MG PO (09:48)
[2022-10-17 10:01] LABS: Amphetamine Screen Urine Negative (Negative); Barbiturate Screen Urine Negative (Negative); Cannabinoid Screen Urine Negative (Negative); Cocaine Screen Urine Negative (Negative); Methadone Screen Urine Negative (Negative); Methamphetamines Screen Urine Negative (Negative); Opiate Screen Urine Negative (Negative); Oxycodone Screen Urine Negative (Negative); Phencyclidine Screen Urine Negative (Negative); Tricyclic Antidepressant Urine Negative (Negative)
[2022-10-17 10:07] LABS: Benzodiazepines Screen Urine POSITIVE (Negative)
--- NOTE | 2022-10-17 10:40 | PC.NURSE ---
Patient resting in room. He is alert and cooperative.
[2022-10-17] MEDS: buPROPion XL 150 MG TABLET PO (13:29)
[2022-10-17 14:00] VITALS: BP 130/70; PULSE 101; RESP 16; TEMP 37.8; O2SAT 94
--- NOTE | 2022-10-17 14:29 | ED.NURSE ---
Pt. c/o congestion, runny nose and sore throat since this morning. Covid and strep collected.
[2022-10-17 14:50] LABS: Lactate* 1.1 mmol/L (0.5-1.9)
[2022-10-17 14:56] LABS: Basophils Percent Auto 0.7 % (0.0-3.0); Hematocrit 33.1 % (37.0-53.0); Hemoglobin* 10.5 gm/dL (13.5-17.5); Immature Granulocytes Pct Auto 1.1 %; Lymphocytes Percent Auto 18.7 % (20-44); Mean Corpuscular HGB Conc 32 gm/dL (32-36); Mean Corpuscular Hemoglobin 25 pg (26-34); Mean Corpuscular Volume 80 fL (80-100); Monocytes Percent Auto 20.9 % (0.0-11.0); Neutrophils Percent Auto 58.6 % (42.0-72.0); Platelet Count* 79 K/uL (140-440); RDW Coefficient of Variation % 17.8 % (11.5-15.5); Red Blood Count 4.14 m/uL (4.30-5.90); White Blood Count* 2.73 K/uL (4.50-11.00)
[2022-10-17 15:08] LABS: Strep A DNA Probe* NOT DETECTED (Not Detectd)
[2022-10-17 15:09] LABS: Slide Review Reflex No
[2022-10-17 15:18] LABS: PCR FLU A POSITIVE PCR FLU A (Negative); PCR FLU B Negative PCR FLU B (Negative); PCR RSV Negative PCR RSV (Negative)
[2022-10-17 15:24] LABS: SARS PCR* Negative SARS-CoV-2 (Negative)
[2022-10-17 16:54] VITALS: BP 130/78; RESP 18; O2SAT 99
[2022-10-17] MEDS: IBUPROFEN 200 MG TABLET 600 MG PO (17:17)
[2022-10-17 18:51] VITALS: BP 109/65; PULSE 91; RESP 12; TEMP 37.2; O2SAT 92
[2022-10-17] MEDS: LITHIUM CARBONATE 150 MG CAPSULE 750 MG PO (20:55)
--- NOTE | 2022-10-17 21:02 | ED.NURSE ---
PM medications accepted. Patient reports improvement of scatchy throat and nasal congestion pain following Ibuprofen administration.
[2022-10-18 00:34] VITALS: BP 111/69; PULSE 86; RESP 18; TEMP 36.7; O2SAT 93
--- NOTE | 2022-10-18 07:06 | PC.NURSE ---
up to bathroom per self, steady on feet
[2022-10-18 08:30] VITALS: BP 105/52; PULSE 90; RESP 18; O2SAT 91
[2022-10-18] MEDS: OMEPRAZOLE 20 MG CAPSULE DR 40 MG PO (08:40)
[2022-10-18] MEDS: buPROPion XL 150 MG TABLET 450 MG PO (10:02)
[2022-10-18] MEDS: ESCITALOPRAM 10 MG TABLET 20 MG PO (10:02)
[2022-10-18] MEDS: FUROSEMIDE 20 MG TABLET PO (10:02)
[2022-10-18] MEDS: GLIMEPIRIDE 1 MG TABLET 2 MG PO (10:03)
[2022-10-18] MEDS: MULTIVITAMIN/MINERALS 1 TABLET 1 TAB PO (10:03)
[2022-10-18] MEDS: SPIRONOLACTONE 25 MG TABLET 50 MG PO (10:03)
[2022-10-18 10:10] VITALS: TEMP 37.1
--- NOTE | 2022-10-18 10:14 | ED.NURSE ---
woke pt at 0830. pt did not want breakfast yet, 0945 woke pt again. breakfast ordered and morning meds given. pt coughing. states he also has some congestion. pt states fever yesterday. afebrile this am. pt sleeping during cares. pleasant and cooperative. social services analyst consulted to help with placement.
--- NOTE | 2022-10-18 10:35 | ED.NURSE ---
pt sitting up in bed, eating breakfast.
--- NOTE | 2022-10-18 11:22 | ED.NURSE ---
pt's cousin Kelsey called for update. she states the last 2 times pt has transferred to mental health, the mental health facilities have not notified family when he dc'd. added Kelsey to pt's contact list. will let Kelsey know where pt transfers to
[2022-10-18 12:30] VITALS: BP 106/63; PULSE 95; RESP 18; TEMP 37.4; O2SAT 94
--- NOTE | 2022-10-18 13:11 | PC.SOCIAL ---
Social work: Per MD order for in-pt mental health placement, used nursing notes from previous attempts at locating an in-pt mental health bed for pt and contacted multiple facilities with the following results: [facility] already declined pt on 10/17/22. Called [facility] and there is no bed available. Called [facility] in [place] [phone], and spoke with intake who requested information be faxed. Faxed packet with requested information to [facility] at [phone] and awaiting call back with decision on admit. supervisor park workers to follow up as needed.
[2022-10-18] MEDS: hydrOXYzine pamoate 25 MG CAPSULE 50 MG PO (14:35)
--- NOTE | 2022-10-18 14:41 | ED.NURSE ---
[facility] asked if pt would be willing to go there again, was there 2 weeks ago and said it was not helpful. asked pt if he would go back there and stated no, he would rather go home. social insurance administrator updated, dr. kilgore updated. we will re-DEC pt.
--- NOTE | 2022-10-18 14:47 | PC.SOCIAL ---
Addendum entered by Aileen Oconnor [employer]AT [employer]AYER 10/18/22 15:06: Called [facility] in [place] and [facility] in [place]. Both of these facilities have beds available, but will not evaluate this patient due to his positive influena A test. vessel slag worker to follow up as needed. Original Note: Social work: Received call from Keisha in intake at stating because pt has stated he does not want to go back to their facility, they are cancelling the referral. Per Keisha, if pt is on a hold he could be re-evaluated, but since he is voluntary, they are no longer evaluating him for admission. There are currently no in-pt mental health facilities with available beds who have not already declined pt. vessel slag worker to follow up as needed.
--- NOTE | 2022-10-18 18:32 | ED.NURSE ---
[facility] re-assessment done. [facility] faxed safety plan, resources and follow appt. reviewed with pt. odalys signed and faxed back to [facility]. pt given paper scrubs, slippers and sweatshirt to wear home. pt said ride will be here around 1900 or a little after. pt said he will text his cousin and let her know he is going home. said he has been in contact with her today.
[2022-10-19 22:28] LABS: Lithium, Serum or Plasma <0.2 mmol/L (0.5-1.2)
== END 2022-10-18 19:01 | disposition home or self-care (01) ==
PROVIDERS: Family Medicine; Emergency Provider Family Medicine; PCP Family Medicine
DX: R45.851 Suicidal ideations (principal); K70.30 Alcoholic cirrhosis of liver without ascites; J09.X2 Influenza due to identified novel influenza A virus with other respiratory manifestations
CPT/HCPCS: 36415; 80053; 80143; 80178; 80306; 82077; 82140; 82962; 83605; 85025; 85610; 85730; 87502; 87634; 87635; 87651; 99284; 99285; A9153; A9270

== ENCOUNTER 2022-10-30 14:26 | Outpatient (CLI) | payer OTHER, SELFPAY | END 2022-10-30 14:27 | disposition home or self-care (01) | LOC: AMB 11-01 16:22 | PROVIDERS: PCP Family Medicine; Visit Provider Family Medicine | DX: R45.851 Suicidal ideations (principal) | CPT/HCPCS: A0425; A0429 ==

== ENCOUNTER 2022-10-30 14:46 | Emergency (ER) | payer OTHER, SELFPAY ==
[2022-10-30 15:02] VITALS: BP 155/92; PULSE 102; RESP 18; TEMP 37.2; O2SAT 98; BMI 37.3
[2022-10-30 15:21] VITALS: O2SAT 93
--- NOTE | 2022-10-30 15:28 | ED_ITS ---
HPI - General Adult General Chief complaint: Psychiatric Problem/Disorder <Amberly Tapia MD - Last Filed: 10/30/22 20:26> Stated complaint: Mental Health <Amberly Tapia MD - Last Filed: 10/30/22 20:26> Time Seen by Provider: 10/30/22 14:58 <Amberly Tapia MD - Last Filed: 10/30/22 20:26> Source: patient <Amberly Tapia MD - Last Filed: 10/30/22 20:26> Mode of arrival: EMS <Amberly Tapia MD - Last Filed: 10/30/22 20:26> Limitations: no limitations <Amberly Tapia MD - Last Filed: 10/30/22 20:26> History of Present Illness HPI narrative: Eagle is a 47-year-old male, well known to us, presenting today via EMS secondary to suicide attempt. Police received a call from his friend who stated that he watched him try to kill himself today. Patient tells me that he has huffed 3 cans of dust off and that he wants to . Patient has had multiple psychiatric hospitalizations in the past. He currently lives independently. He tells me that he is taking all of his medications. He tells me he feels ashamed and that he is afraid to . Does not feel safe going home. <Amberly Tapia MD - Last Filed: 10/30/22 20:26> Related Data Home medications: Home Medications Medication Instructions Recorded Confirmed [facility] 10/30/22 Ultra Test strips) escitalopram oxalate 20 mg tablet 20 mg PO DAILY 06/22/22 10/30/22 glimepiride 2 mg tablet 2 mg PO DAILY 06/22/22 10/30/22 pantoprazole 40 mg tablet,delayed 40 mg PO DAILY 06/22/22 10/30/22 release hydroxyzine HCl 50 mg tablet 50 mg PO TID PRN 09/17/22 10/30/22 lithium carbonate 450 mg 450 mg PO HS 09/17/22 10/30/22 tablet,extended release multivitamin (Daily Multi-Vitamin 1 tab PO DAILY 09/17/22 10/30/22 tablet) spironolactone 50 mg tablet 50 mg PO DAILY 09/17/22 10/30/22 bupropion HCl 150 mg 24 hr tablet, 450 mg PO DAILY 10/17/22 10/30/22 extended release Previous Rx's Medication Instructions Recorded furosemide 20 mg tablet 20 mg PO DAILY #3 tabs 08/19/22 <Amberly Tapia MD - Last Filed: 10/30/22 20:26> Allergies/adverse reactions: Allergies Allergy/AdvReac Type Severity Reaction Status Date / Time No Known Drug Allergies Allergy Verified 10/30/22 15:09 <Amberly Tapia MD - Last Filed: 10/30/22 20:26> Review of Systems Status of ROS: Reports: 10 or more systems reviewed and unremarkable except as noted in History and below <Amberly Tapia MD - Last Filed: 10/30/22 20:26> [facility] Medical History: Medical History Alcohol use disorder Alcoholic cirrhosis of liver Anemia of chronic disease Ankle fracture, right Anxiety Attempted suicide Diabetes mellitus Esophageal varices Hyperlipidemia Hypertension Major depression Morbid obesity with BMI of 40.0-44.9, adult Splenomegaly Tachycardia Thrombocytopenia Type 2 diabetes mellitus Vitamin D deficiency <Amberly Tapia MD - Last Filed: 10/30/22 20:26> Surgical History: Surgical History History of appendectomy History of cholecystectomy Hx of colonoscopy S/P partial colectomy Status post ORIF of fracture of ankle <Amberly Tapia MD - Last Filed: 10/30/22 20:26> Family History: Family History Mother Breast cancer Colon cancer CHF (congestive heart failure) Father Multiple myeloma <Amberly Tapia MD - Last Filed: 10/30/22 20:26> Social History: Social History Narrative: He lives in [place] by himself. He has been isolated in his home in the last 10 days since discharge from [facility] hospitalization. He has previously engaged with a and a sponsor for his alcohol use disorder. He has not been drinking in the last couple months. He goes to [facility] for specialty care including possible liver transplant, mental health, obesity/bariatric surgery evaluation. He has no immediate family. Closest family would be his cousin Michelle who called 911 today. He indicates she could be as power of pull over machine operator. He is a former cigarette smoker. Formally chewed tobacco. Highest level of school completed/degree received: Associate degree: occupational, technical, vocational program Smoking Status: Former smoker How often do you have a drink containing alcohol: never AUDIT-C Alcohol total score: 0 Non-prescribed substance use: other Non-prescribed substance use details: huffing aerosol cans Caffeine: Yes (4 cups) service: No <Amberly Tapia MD - Last Filed: 10/30/22 20:26> Exam Narrative: Exam Narrative: Well-nourished well-developed patient in no acute distress. Alert and oriented x3. Answers questions appropriately and is cooperative. Mood is melancholy. Thoughts are goal oriented and rational. No tangential or magical thinking noted. Patient speaks in full sentences without needing to catch his breath. HEENT: Normocephalic atraumatic. Pupils are equally round reactive to light. Extraocular muscles are intact. Conjunctivae are moist without any icterus noted. Moist mucous membranes. Cardiovascular: Heart is regular rate and rhythm S1 and S2 are present without any murmurs. Lungs: Clear to auscultation bilaterally no wheezes rhonchi or rales are appreciated. Patient takes deep breaths without any discomfort. Abdomen: Soft and nontender nondistended with normal bowel sounds. Delete the Extremities: Bilateral lower extremities are without edema. Skin: Well perfused without any obvious rashes. <Amberly Tapia MD - Last Filed: 10/30/22 20:26> Const: Vital Signs, click to edit/add: Vital Signs - 24 hr 10/30/22 15:02 10/30/22 15:21 Temperature 99.0 F Pulse Rate [Left P ulse Oximeter] 102 H Respiratory Rate 18 Blood Pressure [Ri ght Upper Arm] 155/92 H Pulse Oximetry 98 93 Oxygen Delivery Me thod Room Air <Amberly Tapia MD - Last Filed: 10/30/22 20:26> Vital Signs, click to edit/add: Vital Signs - 24 hr 10/30/22 15:02 10/30/22 15:21 Temperature 99.0 F Pulse Rate [Left P ulse Oximeter] 102 H Respiratory Rate 18 Blood Pressure [Ri ght Upper Arm] 155/92 H Pulse Oximetry 98 93 Oxygen Delivery Me thod Room Air <Deirdre Tavarez MD - Last Filed: 10/30/22 23:06> Course Course Hospital Course: DEC assessment was done-they are in agreement that the patient is acutely suicidal and should not be sent home. Lab work did not show significant abnormalities requiring intervention. Urine drug screen was negative. Patient continues to be cooperative. I have ordered home of his daily medications as I expect him to be here greater than 24 hours. <Amberly Tapia MD - Last Filed: 10/30/22 20:26> Vital Signs Vital signs: Initial Vital Signs Temperature 99.0 F 10/30/22 15:02 Temperature Source Temporal Artery Scan 10/30/22 15:02 Pulse Rate 102 H 10/30/22 15:02 Respiratory Rate 18 10/30/22 15:02 Blood Pressure 155/92 H 10/30/22 15:02 Blood Pressure Mean 113 10/30/22 15:02 Blood Pressure Position Semi-Fowlers 10/30/22 15:02 Pulse Oximetry 98 10/30/22 15:02 Oxygen Delivery Method 10/30/22 15:02 Vital Signs Temperature 99.0 F 10/30/22 15:02 Pulse Rate 102 H 10/30/22 15:02 Respiratory Rate 18 10/30/22 15:02 Blood Pressure 155/92 H 10/30/22 15:02 Pulse Oximetry 98 10/30/22 15:02 Oxygen Delivery Method 10/30/22 15:02 Temperature 99.0 F 10/30/22 15:02 Pulse Rate 102 H 10/30/22 15:02 Respiratory Rate 18 10/30/22 15:02 Blood Pressure 155/92 H 10/30/22 15:02 Pulse Oximetry 93 10/30/22 15:21 Oxygen Delivery Method 10/30/22 15:02 <Amberly Tapia MD - Last Filed: 10/30/22 20:26> Initial Vital Signs Temperature 99.0 F 10/30/22 15:02 Temperature Source Temporal Artery Scan 10/30/22 15:02 Pulse Rate 102 H 10/30/22 15:02 Respiratory Rate 18 10/30/22 15:02 Blood Pressure 155/92 H 10/30/22 15:02 Blood Pressure Mean 113 10/30/22 15:02 Blood Pressure Position Semi-Fowlers 10/30/22 15:02 Pulse Oximetry 98 10/30/22 15:02 Oxygen Delivery Method 10/30/22 15:02 Vital Signs Temperature 99.0 F 10/30/22 15:02 Pulse Rate 102 H 10/30/22 15:02 Respiratory Rate 18 10/30/22 15:02 Blood Pressure 155/92 H 10/30/22 15:02 Pulse Oximetry 98 10/30/22 15:02 Oxygen Delivery Method 10/30/22 15:02 Temperature 99.0 F 10/30/22 15:02 Pulse Rate 102 H 10/30/22 15:02 Respiratory Rate 18 10/30/22 15:02 Blood Pressure 155/92 H 10/30/22 15:02 Pulse Oximetry 93 10/30/22 15:21 Oxygen Delivery Method 10/30/22 15:02 <Deirdre Tavarez MD - Last Filed: 10/30/22 23:06> Medical Decision Making MDM Narrative Medical decision making narrative: 47-year-old male with suicidal ideation and attempted suicide earlier today. We will await psychiatric placement. Care will be transferred to oncoming physician. <Amberly Tapia MD - Last Filed: 10/30/22 20:26> 47-year-old male with suicidal ideation and attempted suicide earlier today. We will await psychiatric placement. Care will be transferred to oncoming physician. Patient has been accepted by [facility] in [place]. Patient is voluntary and therefore a transport hold has been accomplished as well as transfer paperwork. He has been cooperative in the emergency room. Ground ambulance BLS transport pending. <Deirdre Tavarez MD - Last Filed: 10/30/22 23:06> Medical Records Medical records reviewed: Yes I reviewed the patient's medical records <Amberly Tapia MD - Last Filed: 10/30/22 20:26> Lab Data Lab results reviewed: Yes I reviewed the patient's lab results <Amberly Tapia MD - Last Filed: 10/30/22 20:26> Labs: Lab Results 10/30/22 10/30/22 10/30/22 Range/Units 15:45 16:05 16:05 WBC 4.13 L (4.50-11.00) K/uL RBC 4.78 (4.30-5.90) m/uL Hgb 12.1 L (13.5-17.5) gm/dL Hct 38.7 (37.0-53.0) % MCV 81 (80-100) fL MCH 25 L (26-34) pg MCHC 31 L (32-36) gm/dL RDW Coeff of [place] 19.0 H (11.5-15.5) % Plt Count 130 L (140-440) K/uL Neut % (Auto) 69.0 (42.0-72.0) % Lymph % (Auto) 22.0 (20-44) % [place] % (Auto) 7.0 (0.0-11.0) % Eos % (Auto) 0.5 (0.0-7.0) % Baso % (Auto) 0.5 (0.0-3.0) % Neut # (Auto) 2.80 (1.7-7.0) K/uL Lymph # (Auto) 0.90 (0.90-2.90) K/uL [place] # (Auto) 0.30 (0.00-0.90) K/UL Eos # (Auto) 0.00 (0.00-0.50) K/uL Baso # (Auto) 0.00 (0.00-0.30) K/uL Sodium 137 (135-149) mmol/L Potassium 3.6 (3.6-5.1) mmol/L Chloride 104 (96-114) mmol/L Carbon Dioxide 28 (20-32) mmol/L BUN 8 (5-24) mg/dL Creatinine 0.5 (0.5-1.5) mg/dL Estimated Creat Clear 184.53 Estimated GFR 125 ml/min Glucose 169 H (60-115) mg/dL Lactate (0.5-1.9) mmol/L Calcium 8.8 (8.4-10.6) mg/dL Total Bilirubin 3.4 H (0.1-1.5) mg/dL Direct Bilirubin 0.8 H (0.0-0.5) mg/dL AST 57 H (12-35) U/L ALT 32 (4-50) U/L Alkaline Phosphatase 161 H (40-150) U/L Troponin I 0.02 (0.01-0.04) ng/mL C-Reactive Protein < 0.5 L (0.5-1.0) mg/dL Total Protein 7.0 (6.0-8.3) g/dL Albumin 3.8 (3.3-5.0) g/dL Salicylates < 1.0 L (1.0-10) mg/dL Urine Opiates Screen (Negative) Ur Oxycodone Screen (Negative) Urine Methadone Screen (Negative) Ur Propoxyphene Screen (Negative) Acetaminophen < 10.0 L (10.0-30.0) ug/mL Ur Barbiturates Screen (Negative) U Tricyclic Antidepress (Negative) Ur Phencyclidine Scrn (Negative) Ur Amphetamines Screen (Negative) U Methamphetamines Scrn (Negative) U Benzodiazepines Scrn (Negative) Urine Cocaine Screen (Negative) U Marijuana (THC) Screen (Negative) Ur Drug Screen Comment Ethyl Alcohol < 0.01 L (0.01-0.03) % SARS-CoV-2 (PCR) Negative SARS-CoV-2 (Negative) 10/30/22 10/30/22 Range/Units 16:05 17:06 WBC (4.50-11.00) K/uL RBC (4.30-5.90) m/uL Hgb (13.5-17.5) gm/dL Hct (37.0-53.0) % MCV (80-100) fL MCH (26-34) pg MCHC (32-36) gm/dL RDW Coeff of [place] (11.5-15.5) % Plt Count (140-440) K/uL Neut % (Auto) (42.0-72.0) % Lymph % (Auto) (20-44) % [place] % (Auto) (0.0-11.0) % Eos % (Auto) (0.0-7.0) % Baso % (Auto) (0.0-3.0) % Neut # (Auto) (1.7-7.0) K/uL Lymph # (Auto) (0.90-2.90) K/uL [place] # (Auto) (0.00-0.90) K/UL Eos # (Auto) (0.00-0.50) K/uL Baso # (Auto) (0.00-0.30) K/uL Sodium (135-149) mmol/L Potassium (3.6-5.1) mmol/L Chloride (96-114) mmol/L Carbon Dioxide (20-32) mmol/L BUN (5-24) mg/dL Creatinine (0.5-1.5) mg/dL Estimated Creat Clear Estimated GFR ml/min Glucose (60-115) mg/dL Lactate 1.5 (0.5-1.9) mmol/L Calcium (8.4-10.6) mg/dL Total Bilirubin (0.1-1.5) mg/dL Direct Bilirubin (0.0-0.5) mg/dL AST (12-35) U/L ALT (4-50) U/L Alkaline Phosphatase (40-150) U/L Troponin I (0.01-0.04) ng/mL C-Reactive Protein (0.5-1.0) mg/dL Total Protein (6.0-8.3) g/dL Albumin (3.3-5.0) g/dL Salicylates (1.0-10) mg/dL Urine Opiates Screen Negative (Negative) Ur Oxycodone Screen Negative (Negative) Urine Methadone Screen Negative (Negative) Ur Propoxyphene Screen Negative (Negative) Acetaminophen (10.0-30.0) ug/mL Ur Barbiturates Screen Negative (Negative) U Tricyclic Antidepress Negative (Negative) Ur Phencyclidine Scrn Negative (Negative) Ur Amphetamines Screen Negative (Negative) U Methamphetamines Scrn Negative (Negative) U Benzodiazepines Scrn Negative (Negative) Urine Cocaine Screen Negative (Negative) U Marijuana (THC) Screen Negative (Negative) Ur Drug Screen Comment See Note Ethyl Alcohol (0.01-0.03) % SARS-CoV-2 (PCR) (Negative) <Amberly Tapia MD - Last Filed: 10/30/22 20:26> Lab Results 10/30/22 10/30/22 10/30/22 Range/Units 15:45 16:05 16:05 WBC 4.13 L (4.50-11.00) K/uL RBC 4.78 (4.30-5.90) m/uL Hgb 12.1 L (13.5-17.5) gm/dL Hct 38.7 (37.0-53.0) % MCV 81 (80-100) fL MCH 25 L (26-34) pg MCHC 31 L (32-36) gm/dL RDW Coeff of [place] 19.0 H (11.5-15.5) % Plt Count 130 L (140-440) K/uL Neut % (Auto) 69.0 (42.0-72.0) % Lymph % (Auto) 22.0 (20-44) % [place] % (Auto) 7.0 (0.0-11.0) % Eos % (Auto) 0.5 (0.0-7.0) % Baso % (Auto) 0.5 (0.0-3.0) % Neut # (Auto) 2.80 (1.7-7.0) K/uL Lymph # (Auto) 0.90 (0.90-2.90) K/uL [place] # (Auto) 0.30 (0.00-0.90) K/UL Eos # (Auto) 0.00 (0.00-0.50) K/uL Baso # (Auto) 0.00 (0.00-0.30) K/uL Sodium 137 (135-149) mmol/L Potassium 3.6 (3.6-5.1) mmol/L Chloride 104 (96-114) mmol/L Carbon Dioxide 28 (20-32) mmol/L BUN 8 (5-24) mg/dL Creatinine 0.5 (0.5-1.5) mg/dL Estimated Creat Clear 184.53 Estimated GFR 125 ml/min Glucose 169 H (60-115) mg/dL Lactate (0.5-1.9) mmol/L Calcium 8.8 (8.4-10.6) mg/dL Total Bilirubin 3.4 H (0.1-1.5) mg/dL Direct Bilirubin 0.8 H (0.0-0.5) mg/dL AST 57 H (12-35) U/L ALT 32 (4-50) U/L Alkaline Phosphatase 161 H (40-150) U/L Troponin I 0.02 (0.01-0.04) ng/mL C-Reactive Protein < 0.5 L (0.5-1.0) mg/dL Total Protein 7.0 (6.0-8.3) g/dL Albumin 3.8 (3.3-5.0) g/dL Salicylates < 1.0 L (1.0-10) mg/dL Urine Opiates Screen (Negative) Ur Oxycodone Screen (Negative) Urine Methadone Screen (Negative) Ur Propoxyphene Screen (Negative) Acetaminophen < 10.0 L (10.0-30.0) ug/mL Ur Barbiturates Screen (Negative) U Tricyclic Antidepress (Negative) Ur Phencyclidine Scrn (Negative) Ur Amphetamines Screen (Negative) U Methamphetamines Scrn (Negative) U Benzodiazepines Scrn (Negative) Urine Cocaine Screen (Negative) U Marijuana (THC) Screen (Negative) Ur Drug Screen Comment Ethyl Alcohol < 0.01 L (0.01-0.03) % SARS-CoV-2 (PCR) Negative SARS-CoV-2 (Negative) 10/30/22 10/30/22 Range/Units 16:05 17:06 WBC (4.50-11.00) K/uL RBC (4.30-5.90) m/uL Hgb (13.5-17.5) gm/dL Hct (37.0-53.0) % MCV (80-100) fL MCH (26-34) pg MCHC (32-36) gm/dL RDW Coeff of [place] (11.5-15.5) % Plt Count (140-440) K/uL Neut % (Auto) (42.0-72.0) % Lymph % (Auto) (20-44) % [place] % (Auto) (0.0-11.0) % Eos % (Auto) (0.0-7.0) % Baso % (Auto) (0.0-3.0) % Neut # (Auto) (1.7-7.0) K/uL Lymph # (Auto) (0.90-2.90) K/uL [place] # (Auto) (0.00-0.90) K/UL Eos # (Auto) (0.00-0.50) K/uL Baso # (Auto) (0.00-0.30) K/uL Sodium (135-149) mmol/L Potassium (3.6-5.1) mmol/L Chloride (96-114) mmol/L Carbon Dioxide (20-32) mmol/L BUN (5-24) mg/dL Creatinine (0.5-1.5) mg/dL Estimated Creat Clear Estimated GFR ml/min Glucose (60-115) mg/dL Lactate 1.5 (0.5-1.9) mmol/L Calcium (8.4-10.6) mg/dL Total Bilirubin (0.1-1.5) mg/dL Direct Bilirubin (0.0-0.5) mg/dL AST (12-35) U/L ALT (4-50) U/L Alkaline Phosphatase (40-150) U/L Troponin I (0.01-0.04) ng/mL C-Reactive Protein (0.5-1.0) mg/dL Total Protein (6.0-8.3) g/dL Albumin (3.3-5.0) g/dL Salicylates (1.0-10) mg/dL Urine Opiates Screen Negative (Negative) Ur Oxycodone Screen Negative (Negative) Urine Methadone Screen Negative (Negative) Ur Propoxyphene Screen Negative (Negative) Acetaminophen (10.0-30.0) ug/mL Ur Barbiturates Screen Negative (Negative) U Tricyclic Antidepress Negative (Negative) Ur Phencyclidine Scrn Negative (Negative) Ur Amphetamines Screen Negative (Negative) U Methamphetamines Scrn Negative (Negative) U Benzodiazepines Scrn Negative (Negative) Urine Cocaine Screen Negative (Negative) U Marijuana (THC) Screen Negative (Negative) Ur Drug Screen Comment See Note Ethyl Alcohol (0.01-0.03) % SARS-CoV-2 (PCR) (Negative) <Deirdre Tavarez MD - Last Filed: 10/30/22 23:06> ECG Data Attestation: I personally reviewed and interpreted this ECG as follows: (Normal sinus rhythm pulse 99.) <Amberly Tapia MD - Last Filed: 10/30/22 20:26> Discharge Plan Discharge Clinical Impression: Suicidal ideation <Amberly Tapia MD - Last Filed: 10/30/22 20:26> Patient Disposition: Xfer Other <Amberly Tapia MD - Last Filed: 10/30/22 20:26> Condition: Stable <Amberly Tapia MD - Last Filed: 10/30/22 20:26> Prescriptions: No Action (DME) OneTouch Ultra Test Strip MISCELLANEOUS Label Comments: USE DIRECTED BY DOCTOR glimepiride 2 mg tablet 2 mg PO DAILY Label Comments: TAKE 1 TABLET BY MOUTH ONCE DAILY WITH A MEAL. pantoprazole 40 mg tablet,delayed release (DR/EC) 40 mg PO DAILY Label Comments: TAKE 1 TABLET BY MOUTH EVERY DAY escitalopram oxalate 20 mg tablet 20 mg PO DAILY Label Comments: TAKE 1 TABLET BY MOUTH EVERY DAY bupropion HCl 150 mg tablet extended release 24 hr 450 mg PO DAILY furosemide 20 mg tablet 20 mg PO DAILY Qty: 3 0RF hydroxyzine HCl 50 mg tablet 50 mg PO TID PRN lithium carbonate 450 mg tablet extended release 450 mg PO HS multivitamin [Daily Multi-Vitamin] Tablet 1 tab PO DAILY spironolactone 50 mg tablet 50 mg PO DAILY Label Comments: TAKE 1 TABLET BY MOUTH EVERY DAY <Amberly Tapia MD - Last Filed: 10/30/22 20:26> Stand Alone Forms: [facility] <Amberly Tapia MD - Last Filed: 10/30/22 20:26>
[2022-10-30 16:10] LABS: Lactate* 1.5 mmol/L (0.5-1.9)
[2022-10-30 16:16] LABS: Basophils Percent Auto 0.5 % (0.0-3.0); Eosinophils Percent Auto 0.5 % (0.0-7.0); Hematocrit 38.7 % (37.0-53.0); Hemoglobin* 12.1 gm/dL (13.5-17.5); Mean Corpuscular HGB Conc 31 gm/dL (32-36); Mean Corpuscular Hemoglobin 25 pg (26-34); Mean Corpuscular Volume 81 fL (80-100); Platelet Count* 130 K/uL (140-440); Red Blood Count 4.78 m/uL (4.30-5.90); White Blood Count* 4.13 K/uL (4.50-11.00)
[2022-10-30 16:26] LABS: Albumin* 3.8 g/dL (3.3-5.0); Chloride* 104 mmol/L (96-114)
[2022-10-30 16:27] LABS: Sodium* 137 mmol/L (135-149)
[2022-10-30 16:28] LABS: Potassium* 3.6 mmol/L (3.6-5.1)
[2022-10-30 16:29] LABS: Creatinine* 0.5 mg/dL (0.5-1.5); Est. Creatinine Clearance* 184.53; Estimated Glomerular Filt Rate 125 ml/min
[2022-10-30 16:30] LABS: Alanine Aminotransferase* 32 U/L (4-50); Alkaline Phosphatase* 161 U/L (40-150); Aspartate Amino Transferase* 57 U/L (12-35); Bilirubin Direct* 0.8 mg/dL (0.0-0.5); Bilirubin Total* 3.4 mg/dL (0.1-1.5); Blood Urea Nitrogen* 8 mg/dL (5-24); Calcium* 8.8 mg/dL (8.4-10.6); Carbon Dioxide* 28 mmol/L (20-32); Glucose* 169 mg/dL (60-115); Slide Review Reflex No
[2022-10-30 16:37] LABS: Acetaminophen* < 10.0 ug/mL (10.0-30.0); C Reactive Protein* < 0.5 mg/dL (0.5-1.0); Ethanol* < 0.01 % (0.01-0.03); Salicylate* < 1.0 mg/dL (1.0-10)
[2022-10-30 16:38] LABS: SARS PCR* Negative SARS-CoV-2 (Negative)
[2022-10-30 16:41] LABS: Troponin I* 0.02 ng/mL (0.01-0.04)
[2022-10-30 17:20] LABS: Amphetamine Screen Urine Negative (Negative); Barbiturate Screen Urine Negative (Negative); Benzodiazepines Screen Urine Negative (Negative); Cannabinoid Screen Urine Negative (Negative); Cocaine Screen Urine Negative (Negative); Methadone Screen Urine Negative (Negative); Methamphetamines Screen Urine Negative (Negative); Opiate Screen Urine Negative (Negative); Oxycodone Screen Urine Negative (Negative); Phencyclidine Screen Urine Negative (Negative); Tricyclic Antidepressant Urine Negative (Negative)
--- NOTE | 2022-10-30 17:25 | ED.NURSE ---
DEC in progress
--- NOTE | 2022-10-30 21:33 | ED.NURSE ---
Report given to DONNA Pham.
[2022-10-30] MEDS: LITHIUM CARBONATE 150 MG CAPSULE 450 MG PO (22:14)
[2022-10-30] MEDS: SODIUM CHLORIDE 0.9 % (FLUSH) 10 ML SYRINGE 5 ML IVF (22:52)
[2022-10-30] MEDS: hydrOXYzine pamoate 25 MG CAPSULE 50 MG PO (22:52)
[2022-10-30 23:16] VITALS: BP 142/78; PULSE 95; RESP 18; TEMP 36.7; O2SAT 97
[2022-10-30 23:33] VITALS: BP 142/78; PULSE 95; RESP 18; TEMP 36.7
== END 2022-10-30 23:34 | disposition other institution (70) ==
PROVIDERS: Emergency Provider Family Medicine; PCP Family Medicine
DX: R45.851 Suicidal ideations (principal)
CPT/HCPCS: 36415; 80048; 80076; 80143; 80179; 80306; 82077; 83605; 84484; 85025; 86140; 87635; 93005; 94761; 99284; 99285; A9270

== ENCOUNTER 2022-10-30 23:18 | Outpatient (CLI) | payer OTHER, SELFPAY | END 2022-10-30 23:19 | disposition home or self-care (01) | LOC: AMB 11-03 09:36 | PROVIDERS: PCP Family Medicine; Visit Provider Family Medicine | DX: R45.851 Suicidal ideations (principal) | CPT/HCPCS: A0425; A0428 ==